=== PATIENT | male | born 1960 | race Caucasian/White ===

== ENCOUNTER 2019-02-26 18:06 | Emergency (ER) | payer MEDICARE, OTHER ==
[~2019-02-26] VITALS: Ht 180.3 cm; Wt 79.4 kg
[~2019-02-26 18:06] MED LIST: BUPR75 PO; BUTASPCAFT PO; FINA5 PO; FLUO20 PO; FOLI1 PO; LISI20 PO; MULVITA PO; PRAZ2 PO; QUET25 PO; TAMS.4ER PO
[2019-02-26 18:57] LABS: BASOPHILS PERCENT AUTO 1 % (0-2); EOSINOPHILS ABSOLUTE AUTO 0.54 K/mm3 (0.00-0.68); EOSINOPHILS PERCENT AUTO 8 % (0-6); Hematocrit 40.4 % (37.0-53.0); Hemoglobin 13.9 g/dL (13.5-17.5); IMMATURE GRAN ABSOLUTE AUTO 0.01 K/mm3 (0.00-0.10); IMMATURE GRAN PERCENT AUTO 0 % (0-1); LYMPHOCYTES PERCENT AUTO 40 % (21-46); MONOCYTES ABSOLUTE AUTO 0.44 K/mm3 (0.16-1.47); MONOCYTES PERCENT AUTO 6 % (4-13); Mean Corpuscular HGB 30.8 pg (26.0-34.0); Mean Corpuscular HGB Conc 34.4 g/dL (31.5-36.5); Mean Corpuscular Volume 89 fL (80-100); NEUTROPHILS ABSOLUTE AUTO 3.21 K/mm3 (1.96-9.15); NEUTROPHILS PERCENT AUTO 45 % (41-73); Platelet Count 331 K/mm3 (150-400); RDW Coefficient Variation 14.6 % (11.7-14.2); RDW Standard Deviation 48.4 fL (35.1-46.3); Red Blood Cell Count 4.52 M/mm3 (4.30-5.90)
[2019-02-26] MEDS ORDERED: HYDROXYZINE (19:22)
[2019-02-26 19:43] LABS: Alanine Aminotransfer (ALT/SGP 24 U/L (12-78); Albumin, Blood 3.5 g/dL (3.4-5.0); Albumin/Globulin Ratio 0.9 (0.8-1.8); Alk Phos 67 U/L (50-136); Anion Gap 12 mmol/L (6-16); Aspartate Aminotrans (AST/SGOT 27 U/L (12-37); Bilirubin, Total 0.3 mg/dL (0.1-1.0); Blood Urea Nitrogen 13 mg/dL (8-24); Bun/Creatinine Ratio 21.3 (12.0-20.0); CO2, Blood 21 mmol/L (21-32); Calcium, Blood 8.2 mg/dL (8.5-10.1); Chloride, Blood 105 mmol/L (98-108); Creatinine, Blood 0.61 mg/dL (0.60-1.20); Globulin, Blood 3.7 g/dL (2.2-4.0); Glomerular Filtration Rate >60 (60-); Glucose, Blood 100 mg/dL (70-99); Potassium, Blood 3.3 mmol/L (3.5-5.5); Sodium, Blood 138 mmol/L (136-145); Total Protein, Blood 7.2 g/dL (6.4-8.2); Troponin I <0.015 ng/mL (0.000-0.040)
== END 2019-02-26 20:52 | disposition home or self-care (01) ==
LOC: ER 18:06
PROVIDERS: Physician Assistant
DX: R07.9 Chest pain, unspecified (principal); R51 Headache; F32.9 Major depressive disorder, single episode, unspecified; Z88.5 Allergy status to narcotic agent; Z79.899 Other long term (current) drug therapy; J44.9 Chronic obstructive pulmonary disease, unspecified; Z79.82 Long term (current) use of aspirin; I10 Essential (primary) hypertension; F17.210 Nicotine dependence, cigarettes, uncomplicated
CPT/HCPCS: 36415; 71046; 80053; 83690; 84484; 85025; 99285-25

== ENCOUNTER 2019-02-27 21:01 | Emergency (ER) | payer MEDICARE, OTHER ==
[~2019-02-27] VITALS: Ht 182.9 cm; Wt 78.9 kg
[~2019-02-27 21:01] MED LIST changes: +HYDROXYZINE
[2019-02-27 21:54] LABS: BASOPHILS ABSOLUTE AUTO 0.08 K/mm3 (0.00-0.23); BASOPHILS PERCENT AUTO 2 % (0-2); EOSINOPHILS ABSOLUTE AUTO 0.38 K/mm3 (0.00-0.68); EOSINOPHILS PERCENT AUTO 8 % (0-6); Hematocrit 37.3 % (37.0-53.0); IMMATURE GRAN ABSOLUTE AUTO 0.01 K/mm3 (0.00-0.10); IMMATURE GRAN PERCENT AUTO 0 % (0-1); LYMPHOCYTES ABSOLUTE AUTO 2.34 K/mm3 (0.84-5.20); LYMPHOCYTES PERCENT AUTO 49 % (21-46); MONOCYTES ABSOLUTE AUTO 0.59 K/mm3 (0.16-1.47); MONOCYTES PERCENT AUTO 12 % (4-13); Mean Corpuscular HGB 30.9 pg (26.0-34.0); Mean Corpuscular HGB Conc 34.9 g/dL (31.5-36.5); Mean Corpuscular Volume 89 fL (80-100); Mean Platelet Volume 8.8 fL (9.1-12.4); NEUTROPHILS ABSOLUTE AUTO 1.35 K/mm3 (1.96-9.15); NEUTROPHILS PERCENT AUTO 28 % (41-73); Platelet Count 293 K/mm3 (150-400); RDW Coefficient Variation 14.4 % (11.7-14.2); RDW Standard Deviation 46.8 fL (35.1-46.3); Red Blood Cell Count 4.21 M/mm3 (4.30-5.90); White Blood Cell Count 4.75 K/mm3 (4.00-11.30)
[2019-02-27 22:16] LABS: Alanine Aminotransfer (ALT/SGP 22 U/L (12-78); Albumin, Blood 3.6 g/dL (3.4-5.0); Albumin/Globulin Ratio 1.1 (0.8-1.8); Alk Phos 62 U/L (50-136); Anion Gap 7 mmol/L (6-16); Aspartate Aminotrans (AST/SGOT 29 U/L (12-37); Bilirubin, Total 0.3 mg/dL (0.1-1.0); Blood Urea Nitrogen 7 mg/dL (8-24); CO2, Blood 25 mmol/L (21-32); Calcium, Blood 7.9 mg/dL (8.5-10.1); Chloride, Blood 105 mmol/L (98-108); Globulin, Blood 3.3 g/dL (2.2-4.0); Glomerular Filtration Rate >60 (60-); Glucose, Blood 106 mg/dL (70-99); Potassium, Blood 3.6 mmol/L (3.5-5.5); Sodium, Blood 137 mmol/L (136-145); Total Protein, Blood 6.9 g/dL (6.4-8.2)
[2019-02-27 22:18] LABS: Ethanol (Alcohol), Blood, Med 355 mg/dL
[2019-02-28] MEDS ORDERED: CEPH500 PO (01:40)
== END 2019-02-28 02:17 | disposition home or self-care (01) ==
LOC: ER 21:01
PROVIDERS: Emergency Medicine
DX: S56.422A Laceration of extensor muscle, fascia and tendon of left index finger at forearm level, initial encounter (principal); S00.31XA Abrasion of nose, initial encounter; J43.9 Emphysema, unspecified; F17.210 Nicotine dependence, cigarettes, uncomplicated; Z86.73 Personal history of transient ischemic attack (TIA), and cerebral infarction without residual deficits; Z88.8 Allergy status to other drugs, medicaments and biological substances; Z79.82 Long term (current) use of aspirin; Z79.899 Other long term (current) drug therapy
CPT/HCPCS: 12001; 36415; 70450; 71046; 72125; 73120; 80053; 82947; 85025; 86850; 86900; 86901; 90471; 90714; 99284-25; G0480

== ENCOUNTER 2019-04-19 22:42 | Observation (INO) | payer MEDICARE, OTHER ==
[~2019-04-19] VITALS: Ht 190.5 cm; Wt 90.7 kg
[~2019-04-19 22:42] MED LIST changes: +CEPH500 PO; +FLUO10 PO; -FLUO20 PO
== END 2019-04-20 06:53 | disposition home or self-care (01) ==
LOC: ER 22:42 → EOR 22:43
PROVIDERS: ADMIT Emergency Medicine
DX: F10.129 Alcohol abuse with intoxication, unspecified (principal); J44.9 Chronic obstructive pulmonary disease, unspecified; F17.210 Nicotine dependence, cigarettes, uncomplicated; Z86.73 Personal history of transient ischemic attack (TIA), and cerebral infarction without residual deficits; Z88.5 Allergy status to narcotic agent
CPT/HCPCS: 70450; 99285-25; G0378

== ENCOUNTER 2019-04-20 18:31 | Observation (INO) | payer MEDICARE, OTHER ==
[~2019-04-20] VITALS: Ht 182.9 cm; Wt 82.5 kg
[2019-04-20 19:28] LABS: BASOPHILS ABSOLUTE AUTO 0.11 K/mm3 (0.00-0.23); BASOPHILS PERCENT AUTO 1 % (0-2); EOSINOPHILS ABSOLUTE AUTO 0.62 K/mm3 (0.00-0.68); EOSINOPHILS PERCENT AUTO 7 % (0-6); Hematocrit 43.3 % (37.0-53.0); Hemoglobin 14.4 g/dL (13.5-17.5); IMMATURE GRAN ABSOLUTE AUTO 0.01 K/mm3 (0.00-0.10); IMMATURE GRAN PERCENT AUTO 0 % (0-1); LYMPHOCYTES PERCENT AUTO 32 % (21-46); MONOCYTES ABSOLUTE AUTO 0.67 K/mm3 (0.16-1.47); MONOCYTES PERCENT AUTO 8 % (4-13); Mean Corpuscular HGB 30.4 pg (26.0-34.0); Mean Corpuscular HGB Conc 33.3 g/dL (31.5-36.5); Mean Corpuscular Volume 92 fL (80-100); Mean Platelet Volume 9.1 fL (9.1-12.4); NEUTROPHILS PERCENT AUTO 52 % (41-73); Platelet Count 288 K/mm3 (150-400); RDW Coefficient Variation 14.6 % (11.7-14.2); RDW Standard Deviation 49.4 fL (35.1-46.3); Red Blood Cell Count 4.73 M/mm3 (4.30-5.90); White Blood Cell Count 8.71 K/mm3 (4.00-11.30)
[2019-04-20 19:50] LABS: Troponin I <0.015 ng/mL (0.000-0.040)
[2019-04-20 20:33] LABS: Alanine Aminotransfer (ALT/SGP 17 U/L (12-78); Albumin, Blood 3.6 g/dL (3.4-5.0); Alk Phos 76 U/L (50-136); Anion Gap 8 mmol/L (6-16); Aspartate Aminotrans (AST/SGOT 16 U/L (12-37); Bilirubin, Total 0.2 mg/dL (0.1-1.0); Blood Urea Nitrogen 7 mg/dL (8-24); Bun/Creatinine Ratio 13.9 (12.0-20.0); CO2, Blood 24 mmol/L (21-32); Chloride, Blood 111 mmol/L (98-108); Ethanol (Alcohol), Blood, Med 377 mg/dL; Globulin, Blood 3.7 g/dL (2.2-4.0); Glomerular Filtration Rate >60 (60-); Glucose, Blood 96 mg/dL (70-99); Potassium, Blood 3.5 mmol/L (3.5-5.5); Sodium, Blood 143 mmol/L (136-145); Total Protein, Blood 7.3 g/dL (6.4-8.2)
== END 2019-04-21 06:52 | disposition home or self-care (01) ==
LOC: ER 18:31 → EOR 18:32
PROVIDERS: ADMIT Emergency Medicine
DX: F10.129 Alcohol abuse with intoxication, unspecified (principal); F17.210 Nicotine dependence, cigarettes, uncomplicated; Z88.5 Allergy status to narcotic agent; Z79.899 Other long term (current) drug therapy; Y90.8 Blood alcohol level of 240 mg/100 ml or more
CPT/HCPCS: 36415; 71046; 80053; 83880; 84484; 85025; 93005; 93010; 99285-25; G0378; G0480

== ENCOUNTER 2020-12-12 14:38 | Emergency (ER) | payer MEDICARE, OTHER ==
[~2020-12-12] VITALS: Ht 182.9 cm; Wt 86.2 kg
[2020-12-12 15:28] LABS: BASOPHILS PERCENT AUTO 1 % (0-2); EOSINOPHILS ABSOLUTE AUTO 0.05 K/mm3 (0.00-0.68); EOSINOPHILS PERCENT AUTO 1 % (0-6); Hemoglobin 15.3 g/dL (13.5-17.5); IMMATURE GRAN ABSOLUTE AUTO 0.01 K/mm3 (0.00-0.10); IMMATURE GRAN PERCENT AUTO 0 % (0-1); LYMPHOCYTES ABSOLUTE AUTO 1.75 K/mm3 (0.84-5.20); LYMPHOCYTES PERCENT AUTO 21 % (21-46); MONOCYTES ABSOLUTE AUTO 0.68 K/mm3 (0.16-1.47); MONOCYTES PERCENT AUTO 8 % (4-13); Mean Corpuscular HGB Conc 34.8 g/dL (31.5-36.5); Mean Corpuscular Volume 89 fL (80-100); Mean Platelet Volume 8.3 fL (9.1-12.4); NEUTROPHILS ABSOLUTE AUTO 5.85 K/mm3 (1.96-9.15); NEUTROPHILS PERCENT AUTO 69 % (41-73); Platelet Count 251 K/mm3 (150-400); RDW Coefficient Variation 13.8 % (11.7-14.2); RDW Standard Deviation 44.6 fL (35.1-46.3); Red Blood Cell Count 4.94 M/mm3 (4.30-5.90); White Blood Cell Count 8.44 K/mm3 (4.00-11.30)
[2020-12-12 15:56] LABS: Alanine Aminotransfer (ALT/SGP 58 U/L (12-78); Albumin, Blood 4.5 g/dL (3.4-5.0); Albumin/Globulin Ratio 1.2 (0.8-1.8); Alk Phos 74 U/L (50-136); Anion Gap 10 mmol/L (6-16); Aspartate Aminotrans (AST/SGOT 62 U/L (12-37); Bilirubin, Total 0.4 mg/dL (0.1-1.0); Blood Urea Nitrogen 5 mg/dL (8-24); Bun/Creatinine Ratio 9.5 (12.0-20.0); CO2, Blood 21 mmol/L (21-32); Chloride, Blood 100 mmol/L (98-108); Creatinine, Blood 0.52 mg/dL (0.60-1.20); Ethanol (Alcohol), Blood, Med 286 mg/dL; Globulin, Blood 3.6 g/dL (2.2-4.0); Glomerular Filtration Rate >60 (60-); Glucose, Blood 100 mg/dL (70-99); Potassium, Blood 3.9 mmol/L (3.5-5.5); Salicylate 5.3 mg/dL (2.8-20.0); Sodium, Blood 131 mmol/L (136-145); Total Protein, Blood 8.1 g/dL (6.4-8.2)
[2020-12-12 15:59] LABS: Acetaminophen, Random <2.0 ug/mL (10.0-30.0)
[2020-12-12 16:25] LABS: Source, Urine Clean Catch
[2020-12-12 16:29] LABS: Appearance, Urine Clear (Clear); Bilirubin, Urine Neg (Neg); Blood, Urine 2+ (Neg); Color, Urine Yellow (P-Yellow); Glucose Qualitative, Urine Neg (Neg); Ketones, Urine 1+ (Neg); Leukocyte Esterase, Urine Neg (Neg); Nitrite, Urine Neg (Neg); Protein, Urine 3+ (Neg); Urobilinogen, Urine NORM (Normal); pH, Urine 6.5 (5.0-8.0)
[2020-12-12 16:37] LABS: Amorphous Light (0-Heavy); Bacteria Not Seen /hpf; Red Blood Cells, Urine Not Seen /hpf (0-2); Squamous Epithelial Cells Not Seen /hpf (Few); White Blood Cells, Urine Not Seen /hpf (0-5)
[2020-12-12 16:40] LABS: U Amphetamine Screen Not Detected; U Barbituate Screen Not Detected; U Benzodiazapine Screen Not Detected; U Buprenorphine Screen Not Detected; U Cannabinoids Screen Not Detected; U Cocaine Screen Not Detected; U Methadone Screen Not Detected; U Methamphetamine Screen Not Detected; U Opiates Screen Not Detected; U Oxycodone Screen Not Detected; U Phencyclidine Screen Not Detected; U Propoxyphene Screen Not Detected
[2020-12-12 20:06] LABS: Influenza A, PCR Negative (NEGATIVE); Influenza B, PCR Negative (NEGATIVE); Resp Syncytial Virus, PCR Negative (NEGATIVE); SARS-Cov-2 (COVID-19) PCR, MMC Negative (NEGATIVE)
[2021-06-15] MEDS ORDERED: PEPCID40 MG PO (14:41)
== END 2020-12-12 20:38 ==
LOC: ER 14:38
PROVIDERS: Emergency Medicine; Physician Assistant
DX: R45.851 Suicidal ideations (principal); J43.9 Emphysema, unspecified; F17.210 Nicotine dependence, cigarettes, uncomplicated; Z88.5 Allergy status to narcotic agent; Z86.73 Personal history of transient ischemic attack (TIA), and cerebral infarction without residual deficits; Z79.899 Other long term (current) drug therapy; Z79.82 Long term (current) use of aspirin; Z20.822 Contact with and (suspected) exposure to COVID-19
CPT/HCPCS: 0241U; 36415; 80053; 81001; 85025; 99285; G0480; J7030

== ENCOUNTER 2020-12-28 18:43 | Emergency (ER) | payer MEDICARE, OTHER ==
[~2020-12-28] VITALS: Ht 180.3 cm; Wt 83.9 kg
[2020-12-28 19:58] LABS: U Amphetamine Screen Not Detected; U Barbituate Screen Not Detected; U Benzodiazapine Screen Not Detected; U Buprenorphine Screen Not Detected; U Cannabinoids Screen Not Detected; U Cocaine Screen Not Detected; U Methadone Screen Not Detected; U Methamphetamine Screen Not Detected; U Opiates Screen Not Detected; U Oxycodone Screen Not Detected; U Phencyclidine Screen Not Detected; U Propoxyphene Screen Not Detected
[2020-12-28 20:08] LABS: BASOPHILS ABSOLUTE AUTO 0.13 K/mm3 (0.00-0.23); BASOPHILS PERCENT AUTO 2 % (0-2); EOSINOPHILS ABSOLUTE AUTO 0.21 K/mm3 (0.00-0.68); EOSINOPHILS PERCENT AUTO 4 % (0-6); Hematocrit 41.2 % (37.0-53.0); Hemoglobin 13.8 g/dL (13.5-17.5); IMMATURE GRAN ABSOLUTE AUTO 0.01 K/mm3 (0.00-0.10); IMMATURE GRAN PERCENT AUTO 0 % (0-1); LYMPHOCYTES ABSOLUTE AUTO 1.95 K/mm3 (0.84-5.20); LYMPHOCYTES PERCENT AUTO 35 % (21-46); MONOCYTES ABSOLUTE AUTO 0.61 K/mm3 (0.16-1.47); MONOCYTES PERCENT AUTO 11 % (4-13); Mean Corpuscular HGB 30.7 pg (26.0-34.0); Mean Corpuscular HGB Conc 33.5 g/dL (31.5-36.5); Mean Corpuscular Volume 92 fL (80-100); Mean Platelet Volume 8.6 fL (9.1-12.4); NEUTROPHILS ABSOLUTE AUTO 2.64 K/mm3 (1.96-9.15); NEUTROPHILS PERCENT AUTO 48 % (41-73); Platelet Count 368 K/mm3 (150-400); RDW Coefficient Variation 14.3 % (11.7-14.2); RDW Standard Deviation 48.9 fL (35.1-46.3); White Blood Cell Count 5.55 K/mm3 (4.00-11.30)
[2020-12-28 20:38] LABS: Alanine Aminotransfer (ALT/SGP 33 U/L (12-78); Albumin, Blood 3.9 g/dL (3.4-5.0); Albumin/Globulin Ratio 1.1 (0.8-1.8); Alk Phos 73 U/L (50-136); Anion Gap 6 mmol/L (6-16); Aspartate Aminotrans (AST/SGOT 22 U/L (12-37); Bilirubin, Total 0.2 mg/dL (0.1-1.0); Blood Urea Nitrogen 8 mg/dL (8-24); Bun/Creatinine Ratio 14.4 (12.0-20.0); CO2, Blood 23 mmol/L (21-32); Calcium, Blood 8.5 mg/dL (8.5-10.1); Chloride, Blood 105 mmol/L (98-108); Creatinine, Blood 0.56 mg/dL (0.60-1.20); Ethanol (Alcohol), Blood, Med 226 mg/dL; Globulin, Blood 3.7 g/dL (2.2-4.0); Glomerular Filtration Rate >60 (60-); Glucose, Blood 90 mg/dL (70-99); Sodium, Blood 134 mmol/L (136-145); Thyroxine (T4) 7.8 ug/dL (4.5-12.1); Total Protein, Blood 7.6 g/dL (6.4-8.2)
[2020-12-28 20:54] LABS: Acetaminophen, Random <2.0 ug/mL (10.0-30.0)
[2021-06-15] MEDS ORDERED: PEPCID40 MG PO (14:41)
== END 2020-12-28 20:54 | disposition home or self-care (01) ==
LOC: ER 18:43
PROVIDERS: Emergency Medicine
DX: F10.129 Alcohol abuse with intoxication, unspecified (principal); J43.9 Emphysema, unspecified; Z88.5 Allergy status to narcotic agent; Z88.8 Allergy status to other drugs, medicaments and biological substances; Z79.82 Long term (current) use of aspirin; Z79.899 Other long term (current) drug therapy; Y90.7 Blood alcohol level of 200-239 mg/100 ml
CPT/HCPCS: 80053; 84436; 84443; 85025; 99284; A9270; G0480

== ENCOUNTER 2021-01-04 06:18 | Emergency (ER) | payer MEDICARE, OTHER ==
[~2021-01-04] VITALS: Ht 182.9 cm; Wt 83.9 kg
[2021-01-04 07:19] LABS: BASOPHILS ABSOLUTE AUTO 0.07 K/mm3 (0.00-0.23); BASOPHILS PERCENT AUTO 1 % (0-2); EOSINOPHILS ABSOLUTE AUTO 0.29 K/mm3 (0.00-0.68); EOSINOPHILS PERCENT AUTO 5 % (0-6); Hemoglobin 13.9 g/dL (13.5-17.5); IMMATURE GRAN ABSOLUTE AUTO 0.01 K/mm3 (0.00-0.10); IMMATURE GRAN PERCENT AUTO 0 % (0-1); LYMPHOCYTES ABSOLUTE AUTO 1.76 K/mm3 (0.84-5.20); LYMPHOCYTES PERCENT AUTO 29 % (21-46); MONOCYTES ABSOLUTE AUTO 0.74 K/mm3 (0.16-1.47); MONOCYTES PERCENT AUTO 12 % (4-13); Mean Corpuscular HGB 31.2 pg (26.0-34.0); Mean Corpuscular HGB Conc 34.8 g/dL (31.5-36.5); Mean Corpuscular Volume 90 fL (80-100); Mean Platelet Volume 8.8 fL (9.1-12.4); NEUTROPHILS ABSOLUTE AUTO 3.26 K/mm3 (1.96-9.15); NEUTROPHILS PERCENT AUTO 53 % (41-73); Platelet Count 307 K/mm3 (150-400); RDW Coefficient Variation 14.6 % (11.7-14.2); RDW Standard Deviation 48.5 fL (35.1-46.3); Red Blood Cell Count 4.45 M/mm3 (4.30-5.90); White Blood Cell Count 6.13 K/mm3 (4.00-11.30)
[2021-01-04 07:40] LABS: Alanine Aminotransfer (ALT/SGP 27 U/L (12-78); Albumin, Blood 3.6 g/dL (3.4-5.0); Albumin/Globulin Ratio 0.9 (0.8-1.8); Alk Phos 64 U/L (50-136); Anion Gap 9 mmol/L (6-16); Aspartate Aminotrans (AST/SGOT 26 U/L (12-37); Bilirubin, Total 0.2 mg/dL (0.1-1.0); Blood Urea Nitrogen 9 mg/dL (8-24); Bun/Creatinine Ratio 15.4 (12.0-20.0); CO2, Blood 23 mmol/L (21-32); Calcium, Blood 8.6 mg/dL (8.5-10.1); Chloride, Blood 104 mmol/L (98-108); Creatinine, Blood 0.58 mg/dL (0.60-1.20); Ethanol (Alcohol), Blood, Med 71 mg/dL; Globulin, Blood 3.8 g/dL (2.2-4.0); Glomerular Filtration Rate >60 (60-); Glucose, Blood 101 mg/dL (70-99); Magnesium, Blood 2.2 mg/dL (1.6-2.4); Potassium, Blood 3.9 mmol/L (3.5-5.5); Sodium, Blood 136 mmol/L (136-145); Total Protein, Blood 7.4 g/dL (6.4-8.2)
[2021-01-04 08:47] LABS: Source, Urine Voided
[2021-01-04 08:55] LABS: Bilirubin, Urine Neg (Neg); Blood, Urine 1+ (Neg); Glucose Qualitative, Urine Neg (Neg); Ketones, Urine Neg (Neg); Leukocyte Esterase, Urine Neg (Neg); Nitrite, Urine Neg (Neg); Protein, Urine 1+ (Neg); Specific Gravity, Urine 1.025 (1.003-1.022); Urobilinogen, Urine NORM (Normal)
[2021-01-04 09:06] LABS: Appearance, Urine Clear (Clear); Color, Urine Yellow (P-Yellow)
[2021-01-04 09:07] LABS: Red Blood Cells, Urine 0-2 /hpf (0-2); White Blood Cells, Urine 0-2 /hpf (0-5)
[2021-01-04 09:09] LABS: Bacteria Rare /hpf; Hyaline Casts 0-2 /lpf (0-2); Mucus Light (0-Heavy); Squamous Epithelial Cells Rare /hpf (Few)
[2021-06-15] MEDS ORDERED: PEPCID40 MG PO (14:41)
== END 2021-01-04 10:09 | disposition home or self-care (01) ==
LOC: ER 06:18
PROVIDERS: Emergency Medicine
DX: F10.139 Alcohol abuse with withdrawal, unspecified (principal); Z79.899 Other long term (current) drug therapy; Y90.3 Blood alcohol level of 60-79 mg/100 ml
CPT/HCPCS: 36415; 71046; 80053; 81001; 83735; 85025; 93005; 93010; 96361; 96374; 96375; 99284-25; G0480; J2060; J2405; J3411; J3475; J7042

== ENCOUNTER 2021-05-16 04:02 | Emergency (ER) | payer MEDICARE, OTHER ==
[~2021-05-16] VITALS: Ht 182.9 cm; Wt 86.2 kg
[2021-05-16 05:42] LABS: BASOPHILS ABSOLUTE AUTO 0.07 K/mm3 (0.00-0.23); BASOPHILS PERCENT AUTO 1 % (0-2); EOSINOPHILS ABSOLUTE AUTO 0.09 K/mm3 (0.00-0.68); EOSINOPHILS PERCENT AUTO 1 % (0-6); Hematocrit 37.7 % (37.0-53.0); Hemoglobin 13.6 g/dL (13.5-17.5); IMMATURE GRAN ABSOLUTE AUTO 0.01 K/mm3 (0.00-0.10); IMMATURE GRAN PERCENT AUTO 0 % (0-1); LYMPHOCYTES ABSOLUTE AUTO 1.87 K/mm3 (0.84-5.20); LYMPHOCYTES PERCENT AUTO 26 % (21-46); MONOCYTES ABSOLUTE AUTO 0.81 K/mm3 (0.16-1.47); MONOCYTES PERCENT AUTO 11 % (4-13); Mean Corpuscular HGB 30.5 pg (26.0-34.0); Mean Corpuscular HGB Conc 36.1 g/dL (31.5-36.5); Mean Corpuscular Volume 85 fL (80-100); Mean Platelet Volume 8.8 fL (9.1-12.4); NEUTROPHILS PERCENT AUTO 60 % (41-73); Platelet Count 287 K/mm3 (150-400); RDW Standard Deviation 43.4 fL (35.1-46.3); Red Blood Cell Count 4.46 M/mm3 (4.30-5.90); White Blood Cell Count 7.15 K/mm3 (4.00-11.30)
[2021-05-16 05:59] LABS: Alanine Aminotransfer (ALT/SGP 41 U/L (12-78); Albumin, Blood 3.5 g/dL (3.4-5.0); Albumin/Globulin Ratio 1.1 (0.8-1.8); Alk Phos 73 U/L (50-136); Anion Gap 9 mmol/L (6-16); Aspartate Aminotrans (AST/SGOT 53 U/L (12-37); Bilirubin, Total 0.4 mg/dL (0.1-1.0); Blood Urea Nitrogen 5 mg/dL (8-24); Bun/Creatinine Ratio 9.2 (12.0-20.0); CO2, Blood 25 mmol/L (21-32); Calcium, Blood 8.1 mg/dL (8.5-10.1); Chloride, Blood 102 mmol/L (98-108); Creatinine, Blood 0.54 mg/dL (0.60-1.20); Globulin, Blood 3.2 g/dL (2.2-4.0); Glomerular Filtration Rate >60 (60-); Glucose, Blood 95 mg/dL (70-99); Potassium, Blood 3.4 mmol/L (3.5-5.5); Salicylate 3.5 mg/dL (2.8-20.0); Sodium, Blood 136 mmol/L (136-145); Total Protein, Blood 6.7 g/dL (6.4-8.2); Troponin I <0.015 ng/mL (0.000-0.040)
[2021-05-16 06:06] LABS: Source, Urine Clean Catch
[2021-05-16 06:16] LABS: Acetaminophen, Random <2.0 ug/mL (10.0-30.0)
[2021-05-16 06:16] LABS: Appearance, Urine Clear (Clear); Bilirubin, Urine Neg (Neg); Blood, Urine 1+ (Neg); Color, Urine Yellow (P-Yellow); Glucose Qualitative, Urine 1+ (Neg); Ketones, Urine Neg (Neg); Leukocyte Esterase, Urine Neg (Neg); Nitrite, Urine Neg (Neg); Protein, Urine 2+ (Neg); Specific Gravity, Urine 1.015 (1.003-1.022); Urobilinogen, Urine NORM (Normal)
[2021-05-16 06:27] LABS: Bacteria Rare /hpf; Mucus Light (0-Heavy); Squamous Epithelial Cells Not Seen /hpf (Few)
[2021-05-16 12:26] LABS: SARS-Cov-2 (COVID-19) PCR, MMC NEGATIVE (NEGATIVE)
[2021-06-15] MEDS ORDERED: PEPCID40 MG PO (14:41)
== END 2021-05-16 19:20 ==
LOC: ER 04:02
PROVIDERS: Emergency Medicine
DX: R45.851 Suicidal ideations (principal); R10.13 Epigastric pain; R10.11 Right upper quadrant pain; Z79.899 Other long term (current) drug therapy; Z20.822 Contact with and (suspected) exposure to COVID-19
CPT/HCPCS: 71045; 76705; 80053; 81001; 83690; 83735; 84484; 85025; 93005; 93010; 96372; 99285-25; A9270; G0480; J0780; J2270; U0004

== ENCOUNTER 2021-05-31 18:53 | Observation (INO) | payer OTHER, MEDICARE ==
[~2021-05-31] VITALS: Ht 182.9 cm; Wt 86.2 kg
[2021-05-31 19:33] LABS: Source, Urine Voided
[2021-05-31 19:39] LABS: BASOPHILS ABSOLUTE AUTO 0.09 K/mm3 (0.00-0.23); BASOPHILS PERCENT AUTO 1 % (0-2); EOSINOPHILS ABSOLUTE AUTO 0.09 K/mm3 (0.00-0.68); EOSINOPHILS PERCENT AUTO 1 % (0-6); Hematocrit 41.3 % (37.0-53.0); Hemoglobin 14.4 g/dL (13.5-17.5); IMMATURE GRAN ABSOLUTE AUTO 0.03 K/mm3 (0.00-0.10); IMMATURE GRAN PERCENT AUTO 0 % (0-1); LYMPHOCYTES ABSOLUTE AUTO 2.03 K/mm3 (0.84-5.20); LYMPHOCYTES PERCENT AUTO 23 % (21-46); MONOCYTES ABSOLUTE AUTO 0.61 K/mm3 (0.16-1.47); MONOCYTES PERCENT AUTO 7 % (4-13); Mean Corpuscular HGB 30.3 pg (26.0-34.0); Mean Corpuscular HGB Conc 34.9 g/dL (31.5-36.5); Mean Corpuscular Volume 87 fL (80-100); NEUTROPHILS ABSOLUTE AUTO 5.82 K/mm3 (1.96-9.15); NEUTROPHILS PERCENT AUTO 67 % (41-73); Platelet Count 305 K/mm3 (150-400); RDW Coefficient Variation 15.1 % (11.7-14.2); RDW Standard Deviation 48.4 fL (35.1-46.3); Red Blood Cell Count 4.76 M/mm3 (4.30-5.90); White Blood Cell Count 8.67 K/mm3 (4.00-11.30)
[2021-05-31 19:39] LABS: Bilirubin, Urine Neg (Neg); Blood, Urine 2+ (Neg); Glucose Qualitative, Urine Neg (Neg); Ketones, Urine Neg (Neg); Leukocyte Esterase, Urine Neg (Neg); Nitrite, Urine Neg (Neg); Protein, Urine 2+ (Neg); Specific Gravity, Urine 1.015 (1.003-1.022); Urobilinogen, Urine NORM (Normal)
[2021-05-31 19:41] LABS: Appearance, Urine Clear (Clear); Color, Urine Yellow (P-Yellow)
[2021-05-31 19:51] LABS: Bacteria Few /hpf; Red Blood Cells, Urine 0-2 /hpf (0-2); Squamous Epithelial Cells Not Seen /hpf (Few); White Blood Cells, Urine 0-2 /hpf (0-5)
[2021-05-31 19:52] LABS: U Amphetamine Screen Not Detected; U Barbituate Screen Not Detected; U Benzodiazapine Screen Not Detected; U Buprenorphine Screen Not Detected; U Cannabinoids Screen Not Detected; U Cocaine Screen Not Detected; U Methadone Screen Not Detected; U Methamphetamine Screen Not Detected; U Opiates Screen Not Detected; U Oxycodone Screen Not Detected; U Phencyclidine Screen Not Detected; U Propoxyphene Screen Not Detected
[2021-05-31 20:06] LABS: Alanine Aminotransfer (ALT/SGP 53 U/L (12-78); Albumin, Blood 3.8 g/dL (3.4-5.0); Alk Phos 111 U/L (50-136); Anion Gap 10 mmol/L (6-16); Aspartate Aminotrans (AST/SGOT 57 U/L (12-37); Bilirubin, Total 0.4 mg/dL (0.1-1.0); Blood Urea Nitrogen 8 mg/dL (8-24); CO2, Blood 25 mmol/L (21-32); Calcium, Blood 8.3 mg/dL (8.5-10.1); Chloride, Blood 101 mmol/L (98-108); Glomerular Filtration Rate >60 (60-); Glucose, Blood 95 mg/dL (70-99); Potassium, Blood 3.8 mmol/L (3.5-5.5); Salicylate 3.2 mg/dL (2.8-20.0); Sodium, Blood 136 mmol/L (136-145); Total Protein, Blood 7.8 g/dL (6.4-8.2); Troponin I <0.015 ng/mL (0.000-0.040)
[2021-05-31 20:22] LABS: Acetaminophen, Random <2.0 ug/mL (10.0-30.0); Ethanol (Alcohol), Blood, Med 310 mg/dL
[2021-05-31 21:49] LABS: SARS-Cov-2 (COVID-19) PCR, MMC NEGATIVE (NEGATIVE)
[2021-06-01] MEDS ORDERED: Mupirocin22 GM TOP (17:32)
[2021-06-02] MEDS ORDERED: ASPI81CH PO (22:59)
[2021-06-02] MEDS ORDERED: THERA-D2000 UNIT PO (23:02)
[2021-06-02] MEDS ORDERED: HYDCHL25 PO (23:03)
[2021-06-02] MEDS ORDERED: HYDPAM50 PO (23:04)
[2021-06-02] MEDS ORDERED: OMEP20ER PO (23:07)
[2021-06-02] MEDS ORDERED: Naltrexone HCl50 MG PO (23:07)
[2021-06-02] MEDS ORDERED: SERT100 PO (23:16)
[2021-06-02] MEDS ORDERED: TOPI25 PO (23:18)
[2021-06-15] MEDS ORDERED: PEPCID40 MG PO (14:41)
== END 2021-06-01 17:50 | disposition home or self-care (01) ==
LOC: ER 18:53 → EOR 18:54
PROVIDERS: ADMIT Emergency Medicine
DX: F33.9 Major depressive disorder, recurrent, unspecified (principal); I10 Essential (primary) hypertension; J43.9 Emphysema, unspecified; F17.210 Nicotine dependence, cigarettes, uncomplicated; Z88.6 Allergy status to analgesic agent; Z88.8 Allergy status to other drugs, medicaments and biological substances; Z20.822 Contact with and (suspected) exposure to COVID-19
CPT/HCPCS: 36415; 71045; 80053; 81001; 84484; 85025; 93005; 93010; 96374; 99285-25; A9270; G0378; G0480; J2560; Q3014; U0004

== ENCOUNTER 2021-06-02 21:20 | Emergency (ER) | payer OTHER, MEDICARE ==
[~2021-06-02] VITALS: Ht 182.9 cm; Wt 83.9 kg
[~2021-06-02 21:20] MED LIST changes: +Mupirocin22 GM TOP
[2021-06-02] MEDS ORDERED: ASPI81CH PO (22:59)
[2021-06-02] MEDS ORDERED: THERA-D2000 UNIT PO (23:02)
[2021-06-02] MEDS ORDERED: HYDCHL25 PO (23:03)
[2021-06-02] MEDS ORDERED: HYDPAM50 PO (23:04)
[2021-06-02] MEDS ORDERED: Naltrexone HCl50 MG PO (23:07)
[2021-06-02] MEDS ORDERED: OMEP20ER PO (23:07)
[2021-06-02] MEDS ORDERED: SERT100 PO (23:16)
[2021-06-02] MEDS ORDERED: TOPI25 PO (23:18)
== END 2021-06-03 01:30 | disposition home or self-care (01) ==
LOC: ER 21:20
DX: R45.851 Suicidal ideations (principal); J43.9 Emphysema, unspecified; I10 Essential (primary) hypertension; F17.210 Nicotine dependence, cigarettes, uncomplicated; Z23 Encounter for immunization; Z79.82 Long term (current) use of aspirin; Z79.899 Other long term (current) drug therapy; Z88.5 Allergy status to narcotic agent; Z88.8 Allergy status to other drugs, medicaments and biological substances
CPT/HCPCS: 70450; 72125; 90471; 90714; 99284-25; A9270; Q3014

== ENCOUNTER 2021-06-03 16:01 | Emergency (ER) | payer OTHER, MEDICARE ==
[~2021-06-03] VITALS: Ht 180.3 cm; Wt 88.5 kg
[~2021-06-03 16:01] MED LIST changes: +ASPI81CH PO; +HYDCHL25 PO; +HYDPAM50 PO; +Naltrexone HCl50 MG PO; +OMEP20ER PO; +SERT100 PO; +THERA-D2000 UNIT PO; +TOPI25 PO
== END 2021-06-03 17:32 | disposition home or self-care (01) ==
LOC: ER 16:01
DX: R45.851 Suicidal ideations (principal); J43.9 Emphysema, unspecified; I10 Essential (primary) hypertension; F17.210 Nicotine dependence, cigarettes, uncomplicated; Z72.89 Other problems related to lifestyle; Z79.899 Other long term (current) drug therapy
CPT/HCPCS: 99284

== ENCOUNTER 2021-06-12 19:15 | Observation (INO) | payer OTHER, MEDICARE | END 2021-06-13 15:28 | disposition home or self-care (01) | LOC: ER 19:15 → EOR 19:16 | PROVIDERS: ADMIT Emergency Medicine | DX: F32.9 Major depressive disorder, single episode, unspecified (principal); J43.9 Emphysema, unspecified; F17.200 Nicotine dependence, unspecified, uncomplicated; F10.120 Alcohol abuse with intoxication, uncomplicated; Z20.822 Contact with and (suspected) exposure to COVID-19; Z86.73 Personal history of transient ischemic attack (TIA), and cerebral infarction without residual deficits; Z88.6 Allergy status to analgesic agent; Z88.8 Allergy status to other drugs, medicaments and biological substances ==

== ENCOUNTER 2021-06-14 18:08 | Emergency (ER) | payer OTHER, MEDICARE ==
[~2021-06-14] VITALS: Ht 190.5 cm; Wt 83.9 kg
[2021-06-14 18:41] LABS: Source, Urine Clean Catch
[2021-06-14 18:49] LABS: Appearance, Urine Clear (Clear); Bilirubin, Urine Neg (Neg); Blood, Urine 1+ (Neg); Color, Urine Yellow (P-Yellow); Glucose Qualitative, Urine Neg (Neg); Ketones, Urine Neg (Neg); Leukocyte Esterase, Urine Neg (Neg); Nitrite, Urine Neg (Neg); Protein, Urine 1+ (Neg); Urobilinogen, Urine NORM (Normal)
[2021-06-14 18:49] LABS: BASOPHILS ABSOLUTE AUTO 0.05 K/mm3 (0.00-0.23); BASOPHILS PERCENT AUTO 1 % (0-2); EOSINOPHILS ABSOLUTE AUTO 0.17 K/mm3 (0.00-0.68); EOSINOPHILS PERCENT AUTO 3 % (0-6); Hemoglobin 13.9 g/dL (13.5-17.5); IMMATURE GRAN ABSOLUTE AUTO 0.01 K/mm3 (0.00-0.10); IMMATURE GRAN PERCENT AUTO 0 % (0-1); LYMPHOCYTES ABSOLUTE AUTO 1.56 K/mm3 (0.84-5.20); LYMPHOCYTES PERCENT AUTO 29 % (21-46); MONOCYTES ABSOLUTE AUTO 0.72 K/mm3 (0.16-1.47); MONOCYTES PERCENT AUTO 14 % (4-13); Mean Corpuscular HGB 31.1 pg (26.0-34.0); Mean Corpuscular HGB Conc 33.9 g/dL (31.5-36.5); Mean Corpuscular Volume 92 fL (80-100); Mean Platelet Volume 10.2 fL (9.1-12.4); NEUTROPHILS PERCENT AUTO 53 % (41-73); Platelet Count 160 K/mm3 (150-400); RDW Coefficient Variation 17.6 % (11.7-14.2); RDW Standard Deviation 59.6 fL (35.1-46.3); Red Blood Cell Count 4.47 M/mm3 (4.30-5.90); White Blood Cell Count 5.31 K/mm3 (4.00-11.30)
[2021-06-14 18:59] LABS: Bacteria Not Seen /hpf; Red Blood Cells, Urine 0-2 /hpf (0-2); Squamous Epithelial Cells Not Seen /hpf (Few); White Blood Cells, Urine 0-2 /hpf (0-5)
[2021-06-14 19:10] LABS: Alanine Aminotransfer (ALT/SGP 78 U/L (12-78); Albumin, Blood 3.5 g/dL (3.4-5.0); Albumin/Globulin Ratio 0.9 (0.8-1.8); Alk Phos 90 U/L (50-136); Anion Gap 9 mmol/L (6-16); Aspartate Aminotrans (AST/SGOT 118 U/L (12-37); Bilirubin, Total 0.3 mg/dL (0.1-1.0); Blood Urea Nitrogen 12 mg/dL (8-24); Bun/Creatinine Ratio 14.3 (12.0-20.0); CO2, Blood 23 mmol/L (21-32); Calcium, Blood 8.4 mg/dL (8.5-10.1); Chloride, Blood 111 mmol/L (98-108); Creatinine, Blood 0.84 mg/dL (0.60-1.20); Globulin, Blood 4.1 g/dL (2.2-4.0); Glomerular Filtration Rate >60 (60-); Glucose, Blood 95 mg/dL (70-99); Potassium, Blood 4.1 mmol/L (3.5-5.5); Sodium, Blood 143 mmol/L (136-145); Total Protein, Blood 7.6 g/dL (6.4-8.2); Troponin I <0.015 ng/mL (0.000-0.040)
[2021-06-15] MEDS ORDERED: PEPCID40 MG PO (14:41)
== END 2021-06-14 20:35 | disposition left against medical advice (07) ==
LOC: ER 18:08
PROVIDERS: Physician Assistant
DX: R07.9 Chest pain, unspecified (principal); Z53.21 Procedure and treatment not carried out due to patient leaving prior to being seen by health care provider
CPT/HCPCS: 71045; 80053; 81001; 82947; 83690; 84484; 85025; 93005; 93010; 99285-25; G0480

== ENCOUNTER 2021-06-15 12:46 | Emergency (ER) | payer OTHER, MEDICARE | END 2021-06-15 14:51 | disposition home or self-care (01) | LOC: ER 12:46 | DX: R07.9 Chest pain, unspecified (principal); F10.10 Alcohol abuse, uncomplicated; I10 Essential (primary) hypertension; F17.200 Nicotine dependence, unspecified, uncomplicated; Z88.8 Allergy status to other drugs, medicaments and biological substances ==

== ENCOUNTER 2021-06-16 08:00 | Emergency (ER) | payer OTHER, MEDICARE ==
[~2021-06-16] VITALS: Ht 182.9 cm; Wt 83.0 kg
[~2021-06-16 08:00] MED LIST changes: +PEPCID40 MG PO
== END 2021-06-16 08:37 | disposition home or self-care (01) ==
LOC: ER 08:00
DX: F10.129 Alcohol abuse with intoxication, unspecified (principal); J44.9 Chronic obstructive pulmonary disease, unspecified; F17.210 Nicotine dependence, cigarettes, uncomplicated; Z79.899 Other long term (current) drug therapy; Z88.5 Allergy status to narcotic agent
CPT/HCPCS: 99285

== ENCOUNTER 2021-06-19 03:01 | Emergency (ER) | payer OTHER, MEDICARE ==
[~2021-06-19] VITALS: Ht 182.9 cm; Wt 83.9 kg
== END 2021-06-19 03:50 | disposition home or self-care (01) ==
LOC: ER 03:01
DX: S39.012A Strain of muscle, fascia and tendon of lower back, initial encounter (principal); J43.9 Emphysema, unspecified; I10 Essential (primary) hypertension; Z88.5 Allergy status to narcotic agent; Z88.8 Allergy status to other drugs, medicaments and biological substances; X58.XXXA Exposure to other specified factors, initial encounter
CPT/HCPCS: 99283; A9270

== ENCOUNTER 2021-06-24 17:55 | Emergency (ER) | payer OTHER, MEDICARE ==
[~2021-06-24] VITALS: Ht 182.9 cm; Wt 82.5 kg
[2021-06-24] MEDS ORDERED: VITAMIN D325 MC3 PO (18:06)
[2021-06-24] MEDS ORDERED: HYDPAM50 PO (18:07)
[2021-06-24] MEDS ORDERED: LISI20 PO (18:07)
[2021-06-24] MEDS ORDERED: Vitamin and Mi1 EACH PO (18:08)
[2021-06-24] MEDS ORDERED: QUET300 PO (18:08)
[2021-06-24 19:07] LABS: BASOPHILS ABSOLUTE AUTO 0.06 K/mm3 (0.00-0.23); BASOPHILS PERCENT AUTO 1 % (0-2); EOSINOPHILS ABSOLUTE AUTO 0.09 K/mm3 (0.00-0.68); EOSINOPHILS PERCENT AUTO 2 % (0-6); Hemoglobin 13.3 g/dL (13.5-17.5); IMMATURE GRAN ABSOLUTE AUTO 0.01 K/mm3 (0.00-0.10); IMMATURE GRAN PERCENT AUTO 0 % (0-1); LYMPHOCYTES ABSOLUTE AUTO 0.63 K/mm3 (0.84-5.20); LYMPHOCYTES PERCENT AUTO 11 % (21-46); MONOCYTES PERCENT AUTO 12 % (4-13); Mean Corpuscular HGB 31.2 pg (26.0-34.0); Mean Corpuscular HGB Conc 33.3 g/dL (31.5-36.5); Mean Corpuscular Volume 94 fL (80-100); Mean Platelet Volume 9.8 fL (9.1-12.4); NEUTROPHILS ABSOLUTE AUTO 4.23 K/mm3 (1.96-9.15); NEUTROPHILS PERCENT AUTO 74 % (41-73); Platelet Count 256 K/mm3 (150-400); RDW Coefficient Variation 18.3 % (11.7-14.2); RDW Standard Deviation 63.2 fL (35.1-46.3); Red Blood Cell Count 4.26 M/mm3 (4.30-5.90); White Blood Cell Count 5.72 K/mm3 (4.00-11.30)
[2021-06-24 19:18] LABS: Alanine Aminotransfer (ALT/SGP 65 U/L (12-78); Albumin, Blood 3.5 g/dL (3.4-5.0); Alk Phos 84 U/L (50-136); Anion Gap 6 mmol/L (6-16); Aspartate Aminotrans (AST/SGOT 74 U/L (12-37); Bilirubin, Total 0.7 mg/dL (0.1-1.0); Blood Urea Nitrogen 15 mg/dL (8-24); CO2, Blood 28 mmol/L (21-32); Calcium, Blood 9.2 mg/dL (8.5-10.1); Chloride, Blood 102 mmol/L (98-108); Creatinine, Blood 0.56 mg/dL (0.60-1.20); Globulin, Blood 3.5 g/dL (2.2-4.0); Glomerular Filtration Rate >60 (60-); Glucose, Blood 131 mg/dL (70-99); Potassium, Blood 3.9 mmol/L (3.5-5.5); Sodium, Blood 136 mmol/L (136-145)
[2021-06-24] MEDS ORDERED: LIBRAX CAPSULE1 EACH PO (19:29)
== END 2021-06-24 19:42 | disposition home or self-care (01) ==
LOC: ER 17:55
PROVIDERS: Emergency Medicine
DX: F10.239 Alcohol dependence with withdrawal, unspecified (principal); J43.9 Emphysema, unspecified; I10 Essential (primary) hypertension; Z88.8 Allergy status to other drugs, medicaments and biological substances; Z79.899 Other long term (current) drug therapy
CPT/HCPCS: 36415; 80053; 85025; 96374; 99285-25; A9270; J2060; J7030

== ENCOUNTER 2021-06-29 06:43 | Emergency (ER) | payer OTHER, MEDICARE ==
[~2021-06-29] VITALS: Ht 182.9 cm; Wt 82.5 kg
[~2021-06-29 06:43] MED LIST changes: +LIBRAX CAPSULE1 EACH PO; +QUET300 PO; +VITAMIN D325 MC3 PO; +Vitamin and Mi1 EACH PO
[2021-06-29 07:32] LABS: BASOPHILS ABSOLUTE AUTO 0.09 K/mm3 (0.00-0.23); BASOPHILS PERCENT AUTO 1 % (0-2); EOSINOPHILS ABSOLUTE AUTO 0.13 K/mm3 (0.00-0.68); EOSINOPHILS PERCENT AUTO 2 % (0-6); Hematocrit 42.9 % (37.0-53.0); Hemoglobin 14.3 g/dL (13.5-17.5); IMMATURE GRAN ABSOLUTE AUTO 0.02 K/mm3 (0.00-0.10); IMMATURE GRAN PERCENT AUTO 0 % (0-1); LYMPHOCYTES PERCENT AUTO 14 % (21-46); MONOCYTES ABSOLUTE AUTO 0.65 K/mm3 (0.16-1.47); MONOCYTES PERCENT AUTO 10 % (4-13); Mean Corpuscular HGB 31.5 pg (26.0-34.0); Mean Corpuscular HGB Conc 33.3 g/dL (31.5-36.5); Mean Corpuscular Volume 95 fL (80-100); Mean Platelet Volume 9.5 fL (9.1-12.4); NEUTROPHILS ABSOLUTE AUTO 4.73 K/mm3 (1.96-9.15); NEUTROPHILS PERCENT AUTO 73 % (41-73); Platelet Count 275 K/mm3 (150-400); RDW Coefficient Variation 17.2 % (11.7-14.2); RDW Standard Deviation 59.7 fL (35.1-46.3); Red Blood Cell Count 4.54 M/mm3 (4.30-5.90); White Blood Cell Count 6.52 K/mm3 (4.00-11.30)
[2021-06-29 07:51] LABS: Alanine Aminotransfer (ALT/SGP 103 U/L (12-78); Albumin, Blood 3.6 g/dL (3.4-5.0); Albumin/Globulin Ratio 0.9 (0.8-1.8); Alk Phos 99 U/L (50-136); Anion Gap 9 mmol/L (6-16); Aspartate Aminotrans (AST/SGOT 81 U/L (12-37); Bilirubin, Total 0.4 mg/dL (0.1-1.0); Blood Urea Nitrogen 7 mg/dL (8-24); Bun/Creatinine Ratio 13.3 (12.0-20.0); CO2, Blood 23 mmol/L (21-32); Calcium, Blood 8.3 mg/dL (8.5-10.1); Chloride, Blood 103 mmol/L (98-108); Creatinine, Blood 0.53 mg/dL (0.60-1.20); Globulin, Blood 4.1 g/dL (2.2-4.0); Glomerular Filtration Rate >60 (60-); Glucose, Blood 93 mg/dL (70-99); Potassium, Blood 3.8 mmol/L (3.5-5.5); Sodium, Blood 135 mmol/L (136-145); Total Protein, Blood 7.7 g/dL (6.4-8.2)
[2021-06-29 12:27] LABS: SARS-Cov-2 (COVID-19) PCR, MMC NEGATIVE (NEGATIVE)
== END 2021-06-29 14:14 | disposition short-term general hospital (02) ==
LOC: ER 06:43
PROVIDERS: Emergency Medicine
DX: F10.239 Alcohol dependence with withdrawal, unspecified (principal); G40.89 Other seizures; J43.9 Emphysema, unspecified; I10 Essential (primary) hypertension; F17.210 Nicotine dependence, cigarettes, uncomplicated; Z20.822 Contact with and (suspected) exposure to COVID-19; Z88.5 Allergy status to narcotic agent; Z88.8 Allergy status to other drugs, medicaments and biological substances; Z79.899 Other long term (current) drug therapy
CPT/HCPCS: 80053; 85025; 96361; 96374; 96376; 99285-25; A9270; J2060; J7030; U0004

== ENCOUNTER 2021-07-31 16:40 | Emergency (ER) | payer OTHER, MEDICARE ==
[~2021-07-31] VITALS: Ht 182.9 cm; Wt 82.5 kg
[2021-07-31 17:07] LABS: BASOPHILS ABSOLUTE AUTO 0.06 K/mm3 (0.00-0.23); BASOPHILS PERCENT AUTO 1 % (0-2); EOSINOPHILS ABSOLUTE AUTO 0.17 K/mm3 (0.00-0.68); EOSINOPHILS PERCENT AUTO 2 % (0-6); Hematocrit 38.8 % (37.0-53.0); Hemoglobin 13.6 g/dL (13.5-17.5); IMMATURE GRAN ABSOLUTE AUTO 0.01 K/mm3 (0.00-0.10); IMMATURE GRAN PERCENT AUTO 0 % (0-1); LYMPHOCYTES ABSOLUTE AUTO 2.16 K/mm3 (0.84-5.20); LYMPHOCYTES PERCENT AUTO 29 % (21-46); MONOCYTES PERCENT AUTO 10 % (4-13); Mean Corpuscular HGB 31.1 pg (26.0-34.0); Mean Corpuscular HGB Conc 35.1 g/dL (31.5-36.5); Mean Corpuscular Volume 89 fL (80-100); Mean Platelet Volume 8.8 fL (9.1-12.4); NEUTROPHILS ABSOLUTE AUTO 4.29 K/mm3 (1.96-9.15); NEUTROPHILS PERCENT AUTO 58 % (41-73); Platelet Count 281 K/mm3 (150-400); RDW Coefficient Variation 13.9 % (11.7-14.2); RDW Standard Deviation 45.4 fL (35.1-46.3); Red Blood Cell Count 4.38 M/mm3 (4.30-5.90); White Blood Cell Count 7.39 K/mm3 (4.00-11.30)
[2021-07-31 17:31] LABS: Alanine Aminotransfer (ALT/SGP 33 U/L (12-78); Albumin, Blood 3.6 g/dL (3.4-5.0); Albumin/Globulin Ratio 1.1 (0.8-1.8); Alk Phos 84 U/L (50-136); Anion Gap 13 mmol/L (6-16); Aspartate Aminotrans (AST/SGOT 31 U/L (12-37); Bilirubin, Total 0.3 mg/dL (0.1-1.0); Blood Urea Nitrogen 12 mg/dL (8-24); Bun/Creatinine Ratio 15.3 (12.0-20.0); CO2, Blood 21 mmol/L (21-32); Calcium, Blood 8.1 mg/dL (8.5-10.1); Chloride, Blood 96 mmol/L (98-108); Creatinine, Blood 0.78 mg/dL (0.60-1.20); Globulin, Blood 3.3 g/dL (2.2-4.0); Glomerular Filtration Rate >60 (60-); Glucose, Blood 96 mg/dL (70-99); Potassium, Blood 4.2 mmol/L (3.5-5.5); Sodium, Blood 130 mmol/L (136-145); Total Protein, Blood 6.9 g/dL (6.4-8.2)
[2021-07-31] MEDS ORDERED: Aspir 8181 MG PO (17:45)
== END 2021-07-31 21:00 | disposition home or self-care (01) ==
LOC: ER 16:40
PROVIDERS: Student in an Organized Health Care Education/Training Program
DX: S01.81XA Laceration without foreign body of other part of head, initial encounter (principal); S01.411A Laceration without foreign body of right cheek and temporomandibular area, initial encounter; R07.81 Pleurodynia; I10 Essential (primary) hypertension; J43.9 Emphysema, unspecified; F17.210 Nicotine dependence, cigarettes, uncomplicated; Z88.8 Allergy status to other drugs, medicaments and biological substances; Z88.5 Allergy status to narcotic agent; Z79.899 Other long term (current) drug therapy; Z86.73 Personal history of transient ischemic attack (TIA), and cerebral infarction without residual deficits; W01.0XXA Fall on same level from slipping, tripping and stumbling without subsequent striking against object, initial encounter
CPT/HCPCS: 12013; 36415; 70450; 71101; 72125; 80053; 85025; 90471; 90714; 93005; 93010; 96374-59; 96375-59; 99284-25; J1885; J2765

== ENCOUNTER 2021-08-05 19:11 | Emergency (ER) | payer OTHER ==
[~2021-08-05] VITALS: Ht 182.9 cm; Wt 82.5 kg
[~2021-08-05 19:11] MED LIST changes: +Aspir 8181 MG PO
[2021-08-05 19:36] LABS: BASOPHILS ABSOLUTE AUTO 0.08 K/mm3 (0.00-0.23); BASOPHILS PERCENT AUTO 1 % (0-2); EOSINOPHILS ABSOLUTE AUTO 0.13 K/mm3 (0.00-0.68); EOSINOPHILS PERCENT AUTO 2 % (0-6); Hematocrit 32.7 % (37.0-53.0); Hemoglobin 11.3 g/dL (13.5-17.5); IMMATURE GRAN ABSOLUTE AUTO 0.03 K/mm3 (0.00-0.10); IMMATURE GRAN PERCENT AUTO 0 % (0-1); LYMPHOCYTES ABSOLUTE AUTO 1.94 K/mm3 (0.84-5.20); LYMPHOCYTES PERCENT AUTO 22 % (21-46); MONOCYTES ABSOLUTE AUTO 0.77 K/mm3 (0.16-1.47); MONOCYTES PERCENT AUTO 9 % (4-13); Mean Corpuscular HGB Conc 34.6 g/dL (31.5-36.5); Mean Corpuscular Volume 90 fL (80-100); Mean Platelet Volume 8.8 fL (9.1-12.4); NEUTROPHILS ABSOLUTE AUTO 5.83 K/mm3 (1.96-9.15); NEUTROPHILS PERCENT AUTO 66 % (41-73); Platelet Count 235 K/mm3 (150-400); RDW Coefficient Variation 14.2 % (11.7-14.2); RDW Standard Deviation 46.7 fL (35.1-46.3); Red Blood Cell Count 3.65 M/mm3 (4.30-5.90); White Blood Cell Count 8.78 K/mm3 (4.00-11.30)
[2021-08-05 19:57] LABS: Alanine Aminotransfer (ALT/SGP 28 U/L (12-78); Albumin, Blood 3.4 g/dL (3.4-5.0); Alk Phos 87 U/L (50-136); Anion Gap 9 mmol/L (6-16); Aspartate Aminotrans (AST/SGOT 26 U/L (12-37); Bilirubin, Total 0.3 mg/dL (0.1-1.0); Blood Urea Nitrogen 9 mg/dL (8-24); Bun/Creatinine Ratio 14.2 (12.0-20.0); CO2, Blood 24 mmol/L (21-32); Calcium, Blood 7.9 mg/dL (8.5-10.1); Chloride, Blood 98 mmol/L (98-108); Creatinine, Blood 0.64 mg/dL (0.60-1.20); Globulin, Blood 3.4 g/dL (2.2-4.0); Glomerular Filtration Rate >60 (60-); Glucose, Blood 95 mg/dL (70-99); Potassium, Blood 4.4 mmol/L (3.5-5.5); Sodium, Blood 131 mmol/L (136-145); Total Protein, Blood 6.8 g/dL (6.4-8.2); Troponin I <0.015 ng/mL (0.000-0.040)
== END 2021-08-05 22:53 | disposition home or self-care (01) ==
LOC: ER 19:11
PROVIDERS: Emergency Medicine
DX: R07.89 Other chest pain (principal); I10 Essential (primary) hypertension; F17.210 Nicotine dependence, cigarettes, uncomplicated; Z88.8 Allergy status to other drugs, medicaments and biological substances; Z88.5 Allergy status to narcotic agent; Z79.899 Other long term (current) drug therapy; Z79.82 Long term (current) use of aspirin; Z86.73 Personal history of transient ischemic attack (TIA), and cerebral infarction without residual deficits
CPT/HCPCS: 36415; 71045; 80053; 84484; 85025; 93005; 93010; 96365; 96375; 99285-25; J1885; J2560

== ENCOUNTER 2021-08-30 19:43 | Inpatient (IN) | payer OTHER ==
[~2021-08-30] VITALS: Ht 182.9 cm; Wt 88.7 kg
[2021-08-30 20:29] LABS: BASOPHILS ABSOLUTE AUTO 0.05 K/mm3 (0.00-0.23); BASOPHILS PERCENT AUTO 0 % (0-2); EOSINOPHILS PERCENT AUTO 0 % (0-6); Hematocrit 25.2 % (37.0-53.0); Hemoglobin 8.9 g/dL (13.5-17.5); IMMATURE GRAN ABSOLUTE AUTO 0.06 K/mm3 (0.00-0.10); IMMATURE GRAN PERCENT AUTO 1 % (0-1); LYMPHOCYTES ABSOLUTE AUTO 1.74 K/mm3 (0.84-5.20); LYMPHOCYTES PERCENT AUTO 14 % (21-46); MONOCYTES ABSOLUTE AUTO 1.85 K/mm3 (0.16-1.47); MONOCYTES PERCENT AUTO 15 % (4-13); Mean Corpuscular HGB 31.2 pg (26.0-34.0); Mean Corpuscular HGB Conc 35.3 g/dL (31.5-36.5); Mean Corpuscular Volume 88 fL (80-100); Mean Platelet Volume 9.3 fL (9.1-12.4); NEUTROPHILS ABSOLUTE AUTO 8.94 K/mm3 (1.96-9.15); NEUTROPHILS PERCENT AUTO 71 % (41-73); Platelet Count 334 K/mm3 (150-400); RDW Coefficient Variation 14.2 % (11.7-14.2); RDW Standard Deviation 45.6 fL (35.1-46.3); Red Blood Cell Count 2.85 M/mm3 (4.30-5.90); White Blood Cell Count 12.64 K/mm3 (4.00-11.30)
[2021-08-30 20:57] LABS: Alanine Aminotransfer (ALT/SGP 36 U/L (12-78); Albumin, Blood 3.1 g/dL (3.4-5.0); Albumin/Globulin Ratio 0.9 (0.8-1.8); Alk Phos 70 U/L (50-136); Anion Gap 12 mmol/L (6-16); Aspartate Aminotrans (AST/SGOT 41 U/L (12-37); Bilirubin, Total 0.6 mg/dL (0.1-1.0); Blood Urea Nitrogen 25 mg/dL (8-24); Bun/Creatinine Ratio 41.5 (12.0-20.0); CO2, Blood 21 mmol/L (21-32); Calcium, Blood 8.3 mg/dL (8.5-10.1); Chloride, Blood 90 mmol/L (98-108); Ethanol (Alcohol), Blood, Med 173 mg/dL; Globulin, Blood 3.6 g/dL (2.2-4.0); Glomerular Filtration Rate >60 (60-); Glucose, Blood 93 mg/dL (70-99); Potassium, Blood 4.4 mmol/L (3.5-5.5); Sodium, Blood 123 mmol/L (136-145); Total Protein, Blood 6.7 g/dL (6.4-8.2); Troponin I 0.039 ng/mL (0.000-0.040)
[2021-08-30] MEDS ORDERED: LISI5 PO (21:23)
[2021-08-30] MEDS ORDERED: Hydroxyzine HCl50 MG PO (21:24)
[2021-08-30] MEDS ORDERED: Seroquel300 MG PO (21:24)
[2021-08-30] MEDS ORDERED: Hair, Skin & N1 EACH PO (21:25)
[2021-08-30] MEDS ORDERED: Viagra100 MG PO (21:25)
[2021-08-30 22:37] LABS: International Normalized Ratio 0.99; Prothrombin Time Results 10.4 Sec (9.7-11.5)
[2021-08-30 23:29] LABS: SARS-Cov-2 (COVID-19) PCR, MMC NEGATIVE (NEGATIVE)
--- NOTE | 2021-08-31 03:01 | NUR ---
update SPOKE TO DR. JETT ABOUT THE PT'S LACK OF IV ACCESS AND THE INCOMPATIBILITY OF HIS MEDICATIONS. THE PROVIDER SAID TO HOLD THE THIAMINE AT THIS TIME AND JUST RUN THE PROTONIX AND SANDOSTATIN.
[2021-08-31 04:17] LABS: BASOPHILS PERCENT AUTO 1 % (0-2); EOSINOPHILS ABSOLUTE AUTO 0.02 K/mm3 (0.00-0.68); EOSINOPHILS PERCENT AUTO 0 % (0-6); Hematocrit 27.2 % (37.0-53.0); Hemoglobin 9.3 g/dL (13.5-17.5); IMMATURE GRAN ABSOLUTE AUTO 0.03 K/mm3 (0.00-0.10); IMMATURE GRAN PERCENT AUTO 0 % (0-1); LYMPHOCYTES ABSOLUTE AUTO 1.35 K/mm3 (0.84-5.20); LYMPHOCYTES PERCENT AUTO 13 % (21-46); MONOCYTES PERCENT AUTO 16 % (4-13); Mean Corpuscular HGB 31.3 pg (26.0-34.0); Mean Corpuscular HGB Conc 34.2 g/dL (31.5-36.5); Mean Corpuscular Volume 92 fL (80-100); Mean Platelet Volume 9.4 fL (9.1-12.4); NEUTROPHILS ABSOLUTE AUTO 7.17 K/mm3 (1.96-9.15); NEUTROPHILS PERCENT AUTO 70 % (41-73); Platelet Count 301 K/mm3 (150-400); RDW Coefficient Variation 14.3 % (11.7-14.2); RDW Standard Deviation 47.7 fL (35.1-46.3); Red Blood Cell Count 2.97 M/mm3 (4.30-5.90); White Blood Cell Count 10.27 K/mm3 (4.00-11.30)
[2021-08-31 04:25] LABS: Alanine Aminotransfer (ALT/SGP 28 U/L (12-78); Albumin, Blood 2.5 g/dL (3.4-5.0); Albumin/Globulin Ratio 0.8 (0.8-1.8); Alk Phos 63 U/L (50-136); Anion Gap 8 mmol/L (6-16); Aspartate Aminotrans (AST/SGOT 35 U/L (12-37); Bilirubin, Total 0.5 mg/dL (0.1-1.0); Blood Urea Nitrogen 14 mg/dL (8-24); Bun/Creatinine Ratio 28.6 (12.0-20.0); CO2, Blood 21 mmol/L (21-32); CPK Creatine Kinase 657 U/L (39-308); Calcium, Blood 6.9 mg/dL (8.5-10.1); Chloride, Blood 100 mmol/L (98-108); Creatinine, Blood 0.49 mg/dL (0.60-1.20); Globulin, Blood 3.2 g/dL (2.2-4.0); Glomerular Filtration Rate >60 (60-); Glucose, Blood 128 mg/dL (70-99); Potassium, Blood 4.1 mmol/L (3.5-5.5); Sodium, Blood 129 mmol/L (136-145); Total Protein, Blood 5.7 g/dL (6.4-8.2); Troponin I 0.016 ng/mL (0.000-0.040)
[2021-08-31 04:40] LABS: Creatine Kinase MB 4.5 ng/mL (0.0-3.6); Creatine Kinase MB Index 0.7 (0.0-4.0)
--- NOTE | 2021-08-31 05:24 | NUR ---
Shift Summary Pt arrived from ED at 0030. Pt was A&O x2 on arrival. Pt was cooperative and answered all questions appropriately. Pt would have episodes of mild confusion that required redirection and reorientation multiple times. Multiple attempts to place an IV catheter were made by several nurses, none were successful. The provider was notified of this and gave orders to hold administering thimaine until a new IV could be established. Pt c/o chest pain that was unrelieved by treatment with nitroglycerin.
[2021-08-31 09:10] LABS: Hematocrit 24.5 % (37.0-53.0); Hemoglobin 8.4 g/dL (13.5-17.5)
[2021-08-31 12:16] LABS: Hematocrit 24.3 % (37.0-53.0); Hemoglobin 8.5 g/dL (13.5-17.5)
[2021-08-31 13:10] LABS: CPK Creatine Kinase 512 U/L (39-308); Troponin I <0.015 ng/mL (0.000-0.040)
[2021-08-31 13:25] LABS: Creatine Kinase MB 2.8 ng/mL (0.0-3.6); Creatine Kinase MB Index 0.5 (0.0-4.0)
--- NOTE | 2021-08-31 18:13 | NUR ---
SHIFT SUMMARY: PT CONTINUES LETHARGIC, AROUSES TO STAFF IN ROOM, WILL ANSWER QUESTIONS APPROPRIATELY BUT HAS BEEN ATTEMPTING TO EXIT BED T/OUT THE SHIFT. GIAN VEST AND VIDEO MONITORING CONTINUE IN PLACE. PT MAINTAINING O2 SATS >92% ON O2 VIA NC AT 2 L/MIN. SR ON MONITOR, NO C/O CHEST PAIN BUT PT DOES C/O L SIDE/RIB PAIN. PT MEDICATED PER EMAR FOR PAIN AND/OR CIWA PROTOCOL. DR REDD TO BEDSIDE, DECIDES TO POSTPONE EGD, CLEAR LIQUID DIET ORDERED, BEDSIDE SWALLOW EVAL COMPLETED AND PT ABLE TO PARTICIPATE W/NO PROBLEMS. ATTENS IN PLACE, ONE SMALL SMEAR OF BLACK STOOL NOTED UPON CHANGING. PT USUALLY ABLE TO VERBALIZE NEED TO USE URINAL. PROTONIX GTT, OCTREOTIDE GTT, AND THIAMINE GTT ALL INFUSING AT THIS TIME. WILL CONTINUE TO MONITOR AND TREAT ACCORDINGLY UNTIL CHANGE OF SHIFT.
[2021-08-31 21:10] LABS: Hematocrit 24.1 % (37.0-53.0); Hemoglobin 8.2 g/dL (13.5-17.5)
--- NOTE | 2021-08-31 21:23 | NUR ---
CALLED TRAMAINE WITH LAB RESULTS NO FURTHER ORDERS AT THIS TIME. PATIENT HAS HAD INCREASING CIWA SCORES THIS EVENING 1929 CIWA 15, 2029 CIWA 19 PATIENT THINKS HE IS IN [facility] IT IS AUGUST BUT YEAR IS 2008 AND 1989, HE ADMITS TO HAVING AUDITORY AND VISUAL HALLUCINATIONS AND IT IS FRIEGHTENING TO HIM, HE HAS A MODERATE HEADACHE 9/10, SENSITIVITY TO LIGHT AND TREMORS. HE IS ABLE TO DO SIMPLE ADDITION. PATIENT RECEIVED LIBRIUM 50MG PO WITH DIFFICULTY SWALLOWING, 2MG ATIVAN THAT GAVE HIM RELIEF FOR ABOUT 1/2HR AND THEN 3MG HOUR LATER THAT GAVE HIM VERY LITTLE RELIEF.
--- NOTE | 2021-08-31 22:48 | NUR ---
RECEIVED NEW ORDERS TO TRANSFER TO ICU STATUS, PRECEDEX STARTED AT 0.2MCG/KG/HR AT 4.4ML/HR.
[2021-09-01 03:49] LABS: Hemoglobin 7.8 g/dL (13.5-17.5); Mean Corpuscular HGB 31.5 pg (26.0-34.0); Mean Corpuscular HGB Conc 33.9 g/dL (31.5-36.5); Mean Corpuscular Volume 93 fL (80-100); Mean Platelet Volume 9.6 fL (9.1-12.4); Platelet Count 289 K/mm3 (150-400); RDW Coefficient Variation 14.3 % (11.7-14.2); RDW Standard Deviation 48.3 fL (35.1-46.3); Red Blood Cell Count 2.48 M/mm3 (4.30-5.90); White Blood Cell Count 6.91 K/mm3 (4.00-11.30)
[2021-09-01 04:04] LABS: Anion Gap 5 mmol/L (6-16); Blood Urea Nitrogen 5 mg/dL (8-24); Bun/Creatinine Ratio 10.1 (12.0-20.0); CO2, Blood 29 mmol/L (21-32); Calcium, Blood 7.7 mg/dL (8.5-10.1); Chloride, Blood 98 mmol/L (98-108); Glomerular Filtration Rate >60 (60-); Glucose, Blood 123 mg/dL (70-99); Potassium, Blood 4.4 mmol/L (3.5-5.5); Sodium, Blood 132 mmol/L (136-145)
--- NOTE | 2021-09-01 07:45 | NUR ---
INITIAL ASSESSMENT: Patient is resting with his eyes closed on his right side. He awakens to verbal stimuli. He is able to tell me his name and birthday. He states he is in [facility] and the year is 1978. He reports 8/10 pain in his left chest, this exacerbates with coughing and deep breathing. HRR. LS dim t/o. Biox wnl on ra, oxygen was below his chin. BT+. PPP, no edema present. Patient has a Lac to left eyebrow and his nose is visibly swollen. He also has mepilex to bilat elbows. He has healing scabs to bilateral knees and bruising to left hip. VSS. Lewis vest in place for impulsiveness and high fall risk. Call light in reach. Will continue to monitor.
--- NOTE | 2021-09-01 10:24 | NUR ---
Update: Dr. Wahl here to see the patient, see new orders. Patient given Percocet for pain. Son provided update on patient. Patient is resting comfortably with eyes closed, will continue to monitor.
--- NOTE | 2021-09-01 13:03 | NUR ---
UPDATE: Patient is OOB to chair. He pulled his condom cath off, requesting to stand and urinate. pt has dark tarry smear in attends. Patient assisted to the BSC with 2 person assist, unsteady gait and patient plopped down on BSC. After he was done on the bedside commode he was assisted to the recliner with chair alarm in place. Call light in reach, patient denies other needs at this time. Will continue to monitor
--- NOTE | 2021-09-01 15:30 | NUR ---
ASSESSMENT: Patient is still in the recliner. Patient tried to climb out of the recliner to find his belongings and put his pants and shoes back on. Patient requested to have an geoffrey tray earlier. I informed them this is a tabacco free campus, I did offer to get him a nicotine patch, he told this RN, "they don't work." VSS. CIWA now 13, precedex restarted. Will reassess. Call light in reach. Bart vest in place.
--- NOTE | 2021-09-01 18:16 | NUR ---
SUMMARY: Patient has done well through out the shift. CIWA has been between 10-19, he was medicated with Librium. Precedex gtt was turned off this am due to hypotension after Percocet was given. Precedex gtt was turned back on late afternoon when CIWA's esclated. Patient spent some time in the recliner today and is back in bed. Patient denies needs at this time and is now resting when undisturbed, Precedex gtt infusing at 0.2 mcg/kg/HR. Will report to oncoming RN.
[2021-09-02 04:16] LABS: Hematocrit 25.4 % (37.0-53.0); Hemoglobin 8.3 g/dL (13.5-17.5); Mean Corpuscular HGB 31.2 pg (26.0-34.0); Mean Corpuscular HGB Conc 32.7 g/dL (31.5-36.5); Mean Corpuscular Volume 96 fL (80-100); Mean Platelet Volume 9.5 fL (9.1-12.4); Platelet Count 350 K/mm3 (150-400); RDW Coefficient Variation 14.6 % (11.7-14.2); RDW Standard Deviation 50.6 fL (35.1-46.3); Red Blood Cell Count 2.66 M/mm3 (4.30-5.90); White Blood Cell Count 7.31 K/mm3 (4.00-11.30)
[2021-09-02 04:45] LABS: Anion Gap 6 mmol/L (6-16); Blood Urea Nitrogen 4 mg/dL (8-24); Bun/Creatinine Ratio 7.4 (12.0-20.0); CO2, Blood 27 mmol/L (21-32); Calcium, Blood 8.2 mg/dL (8.5-10.1); Chloride, Blood 102 mmol/L (98-108); Creatinine, Blood 0.54 mg/dL (0.60-1.20); Glomerular Filtration Rate >60 (60-); Glucose, Blood 131 mg/dL (70-99); Potassium, Blood 4.1 mmol/L (3.5-5.5); Sodium, Blood 135 mmol/L (136-145)
--- NOTE | 2021-09-02 05:47 | NUR ---
SHIFT SUMMARY PATIENT ALERT AND ORIENTED TO SELF, DATE, AND CURRENT PRESIDENT OVERNIGHT. WHEN ASKED WHERE THE PATIENT IS, HE STATES "[facility]". PRECEDEX GTT INFUSING AT 0.2 MCG/KG/HR. WAKES WITH VERBAL STIMULI. CONTINUOUS PROTONIX AND OCREOTIDE ACETATE INFUSING WELL. CIWA's LESS THAN 8 THROUGHOUT SHIFT. GIAN VEST IN PLACE FOR PATIENT'S PROTECTION. COMPLAINTS OF HEADACHE AND RIB PAIN ONCE THIS SHIFT, MEDICATED PER EMAR. 2L NC WHILE PATIENT IS SLEEPING DUE TO DESATURATION. OXYGEN SATURATION ABOVE 95% WITH O2 IN PLACE. NO OTHER SIGNIFICANT CHANGES TO PATIENT'S STATUS THIS SHIFT.
--- NOTE | 2021-09-02 12:33 | NUR ---
UPDATE AT 1154, PT WAS ABLE TO SIT UP TO THE EDGE OF THE BED WITH SUPERVISION. PT REPORTED SLIGHT SOB AND DIZZINESS, O2 SATS AT 97% ON 2L NC. PT WAS ABLE TO STAND FOR 1-2 MINUTES WHILE BEING CLEANED OF STOOL. PT THEN WAS SEATED IN RECLINER. PT TOLERATED FAIR.
--- NOTE | 2021-09-02 16:22 | NUR ---
UPDATE CONTACTED DR BAER FOR UPDATE ON PT. INFORMED DR BAER THAT PT HAS BEEN OFF OF PRECEDEX ALL SHIFT AND HAS BEEN BEING TREATED WITH 2MG ATIVAN FOR ETOH W/D, PT TOLERATING WELL. DR BAER INSTRUCTED THIS RN TO MAKE PT MEDICAL STATUS WITH TELE.
--- NOTE | 2021-09-02 17:48 | NUR ---
SHIFT SUMMARY PT A/O X 3-4, FORGETFULL AT TIMES. PT NEEDS REASSURANCE OF CARE AND REMINDED OF WHY HE IS ON TELE, COOPERATIVE AFTER REASSURANCE. VSS T/O SHIFT, WITH NO REPORTS OF CHEST PAIN/PRESSURE. BRIEF SOB REPORTED WHEN PT SAT AT EDGE OF BED EARLY THIS MORNING. PT WAS UP TO RECLINER FOR 2-3 HOURS, TOLERATED FAIR. PT HAS BEEN RECIEVING 2L NC T/O SHIFT SATS >98%. PT CIWA SCORES 11-21, TREATED PER EMAR. PT HAS BEEN TOLERATING CLEAR LIQUID DIET VERY WELL. PT REPORTED CONSTANT PAIN OF HIS RIBS AND HEAD, TREATED PER EMAR.
--- NOTE | 2021-09-02 19:33 | NUR ---
TRANSFER ASSUMPTION OF CARE AT 1915, PATIENT SITTING IN BED WITH JTAC's AT BEDSIDE. TRANSFER TO ROOM 346 WITH ALL BELONGINGS VIA HOSPITAL BED. REPORT CALLED BY DAY SHIFT RNs.
--- NOTE | 2021-09-02 20:30 | NUR ---
PATIENT TRANSFER FROM U 08. FOUR PERSON TRANSFER FROM [facility] TO BED. ON 2L O2 NC. IV PROTINIX AND IV SANDOSTATIN INFUSING. IN GIAN VEST. ONE BED EXIT ATTEMPT SINCE ARRIVAL ON CAMERA. AXOX 3 AND NOT FOLLOWING DIRECTIONS. CALL LIGHT IN REACH.
--- NOTE | 2021-09-03 01:58 | NUR ---
PATIENT MULTIPLE OOB ATTEMPTS T/O SHIFT SWINGING LEGS OVER RAILS, ON CAMERA. WCTM.
--- NOTE | 2021-09-03 03:30 | NUR ---
SHIFT SUMMARY PATIENT HAD NO ACUTE CHANGES OBSERVED. NOT ABLE TO FOLLOW DIRECTIONS AT THIS TIME. MULTIPLE OOB ATTEMPTS PER CAMERA TECH. DENIES CHEST PAIN, SOB, AND N/V. CIWA'S AVERAGE 9. IV ATIVAN 2 MG GIVEN X TWO PER CIWA SCORE. LIBRIUM 25 MG GIVEN PER CIWA SCORE X ONE. PO TRAMADOL GIVEN FOR HEAD/RIB PAIN. PIVS REMAIN INTACT. IV PROTONIX AND SANDOSTATIN INFUSING. DR REDD IN TO SEE PATIENT THIS SHIFT. [employer] REPORTS ST 102. ON 2L O2 NC. GIAN VEST AND BILATERAL SOFT WRIST RESTRAINTS PER ORDER. CALL LIGHT IN REACH. BED IN LOWEST POSITION. ON CAMERA. WILL CONTINUE TO MONITOR UNTIL DAY SHIFT NURSE ASSUMES CARE.
[2021-09-03 05:27] LABS: Hematocrit 25.2 % (37.0-53.0); Hemoglobin 8.2 g/dL (13.5-17.5); Mean Corpuscular HGB 31.2 pg (26.0-34.0); Mean Corpuscular HGB Conc 32.5 g/dL (31.5-36.5); Mean Corpuscular Volume 96 fL (80-100); Mean Platelet Volume 9.8 fL (9.1-12.4); Platelet Count 371 K/mm3 (150-400); RDW Coefficient Variation 15.1 % (11.7-14.2); RDW Standard Deviation 50.5 fL (35.1-46.3); Red Blood Cell Count 2.63 M/mm3 (4.30-5.90); White Blood Cell Count 9.17 K/mm3 (4.00-11.30)
--- NOTE | 2021-09-03 16:54 | NUR ---
SUMMARY PT AWAKE IN BED WATCHING TV, PT HAS BEEN PLEASANT AND COOPERATIVE WITH CARE, VERY FORGETFUL AND IMPULSIVE, FREQUENT ATTEMPTS TO GET OUT OF BED WITHOUT ASSISTANCE, PT VERY UNSTEADY ON HIS FEET, EDUCATED PT ON THE USE OF THE CALL LIGHT, PT WILL USE IT INCONSISTENTLY, MED PER EMAR FOR PAIN AND AGITATION, PT ABLE TO TAKE PILLS WHOLE WITH WATER, ABLE TO FEED HIMSELF, ALTHOUGH SPILLS FREQUENTLY, UP TO THE COMMODE WITH 1-2 P ASSIST, NEEDS FREQUENT REORIENTATION, VSS, WILL CONT TO MONITOR
[2021-09-04 06:04] LABS: Hematocrit 23.9 % (37.0-53.0); Mean Corpuscular HGB Conc 33.5 g/dL (31.5-36.5); Mean Corpuscular Volume 96 fL (80-100); Mean Platelet Volume 9.5 fL (9.1-12.4); Platelet Count 423 K/mm3 (150-400); RDW Coefficient Variation 15.5 % (11.7-14.2); RDW Standard Deviation 52.8 fL (35.1-46.3); White Blood Cell Count 11.03 K/mm3 (4.00-11.30)
--- NOTE | 2021-09-04 09:41 | NUR ---
09/04/21 0941 Ashish Colmenares History, Chart, Medications and Allergies reviewed before start of procedure.MONITOR INTACT WITH CONTINUOUS PULSE OXIMETRY AND INTERMITTENT BP.3-LEAD EKG REVIEWED WITH PHYSICIAN PRIOR TO START OF PROCEDURE.O2 VIA N/C INTACT THROUGHOUT SEDATION/PROCEDURE. PATIENT DETERMINED TO BE ASA APPROPRIATE FOR PROPOFOL SEDATION PRIOR TO START OF PROCEDURE BY DR. REDD.
--- NOTE | 2021-09-04 17:08 | NUR ---
SHIFT SUMMARY PATIENT IS ALERT AND ORIENTED X2. PATIENT HAS BEEN PLEASENT AND COOPERATIVE WITH CARE. PATIENT WAS IN TOUGH CUFFS IN UPPER ARMS AND SOFT RESTRAINTS FOR LOWER EXTREMITIES. PATIENT WAS DOWNGRADED TO SOFT RESTRAINTS ON ALL 4 EXTREMITIES. PATIENT HAS TOLERATED WELL AND HAS NOT GOTTEN OUT OF RESTRAINTS SINCE. PATIENT IS ABLE TO TAKE PILLS WHOLE WITH WATER. NO ACUTE EVENTS THIS SHIFT. VITAL SIGNS REVIEWED. BED IN LOWEST POSITION. CALL LIGHT IN PLACE. WILL CONTINUE TO MONITOR UNTIL SHIFT CHANGE.
[2021-09-05 05:09] LABS: Hematocrit 23.4 % (37.0-53.0); Hemoglobin 7.8 g/dL (13.5-17.5); Mean Corpuscular HGB 31.3 pg (26.0-34.0); Mean Corpuscular HGB Conc 33.3 g/dL (31.5-36.5); Mean Corpuscular Volume 94 fL (80-100); Mean Platelet Volume 9.1 fL (9.1-12.4); Platelet Count 421 K/mm3 (150-400); RDW Coefficient Variation 15.4 % (11.7-14.2); RDW Standard Deviation 51.5 fL (35.1-46.3); Red Blood Cell Count 2.49 M/mm3 (4.30-5.90); White Blood Cell Count 9.76 K/mm3 (4.00-11.30)
[2021-09-05 05:27] LABS: Anion Gap 6 mmol/L (6-16); Blood Urea Nitrogen 6 mg/dL (8-24); Bun/Creatinine Ratio 10.3 (12.0-20.0); CO2, Blood 28 mmol/L (21-32); Calcium, Blood 8.5 mg/dL (8.5-10.1); Chloride, Blood 102 mmol/L (98-108); Creatinine, Blood 0.59 mg/dL (0.60-1.20); Glomerular Filtration Rate >60 (60-); Glucose, Blood 89 mg/dL (70-99); Sodium, Blood 136 mmol/L (136-145)
--- NOTE | 2021-09-05 07:08 | NUR ---
PATIENT MUCH MORE RESTFUL OVERNIGHT. HE ONLY HAD ONE BRIEF PERIOD OF AGITATION WHEN HE DID NOT GET THE RELIEF HE WAS SEEKING FOR HIS MIGRAINE. HE LATER INFORMED THIS RN THAT HE THOUGHT HE WAITED TOO LONG TO ASK FOR PAIN RELIEF. FIORACET WAS GIVEN PER HIS REQUEST, AND 2 MG ATIVAN FOR HIS AGITATION. Nabeel THEN FELL ASLEEP AND SLEPT MOST OF THE NIGHT WITHOUT ANY SIGNS OF DISCOMFORT. RESTRAINTS REMAIN SOFT TIMES 4, A GIAN VEST AND 4 RAILS
--- NOTE | 2021-09-05 17:19 | NUR ---
SHIFT SUMMARY PATIENT ALERT AND ORIENTED X3. PATIENT REMAINS IN 4 POINT SOFT RESTRAINTS, GIAN, AND 4 SIDE RAILS DUE TO IMPULSIVENESS, FORGETFULNESS, AND WEAKNESS. PATIENT MADE MULTIPLE ATTEMPTS THIS SHIFT TO REMOVE RESTRAINTS. PATIENT COOPERATIVE WITH RESTRAINT REPLACEMENT WHEN REMINDED OF NEED. PATIENT CALM AND COOPERATIVE WITH CARE THROUGHOUT THIS SHIFT. PATIENT MEDICATED 2X THIS SHIFT FOR MIGRAINE, PER EMAR. PATIENT CURRENTLY SITTING UP IN BED WATCHING TELEVISION.
--- NOTE | 2021-09-06 05:38 | NUR ---
Solo slept well last night, no calling out, reduced pushing on rails, no notices attempts to get oob. patient is alert and cooperative with care, voiding in the urinal without difficulty. states he has had minimal luck getting completely rid of his migraine
[2021-09-06 07:13] LABS: Hematocrit 26.3 % (37.0-53.0); Hemoglobin 8.5 g/dL (13.5-17.5); Mean Corpuscular HGB 30.4 pg (26.0-34.0); Mean Corpuscular HGB Conc 32.3 g/dL (31.5-36.5); Mean Corpuscular Volume 94 fL (80-100); Mean Platelet Volume 8.9 fL (9.1-12.4); Platelet Count 458 K/mm3 (150-400); RDW Coefficient Variation 15.5 % (11.7-14.2); RDW Standard Deviation 52.1 fL (35.1-46.3); White Blood Cell Count 7.61 K/mm3 (4.00-11.30)
[2021-09-06 07:34] LABS: Anion Gap 3 mmol/L (6-16); Blood Urea Nitrogen 7 mg/dL (8-24); Bun/Creatinine Ratio 11.5 (12.0-20.0); CO2, Blood 28 mmol/L (21-32); Calcium, Blood 8.5 mg/dL (8.5-10.1); Chloride, Blood 105 mmol/L (98-108); Creatinine, Blood 0.61 mg/dL (0.60-1.20); Glomerular Filtration Rate >60 (60-); Glucose, Blood 94 mg/dL (70-99); Potassium, Blood 3.5 mmol/L (3.5-5.5); Sodium, Blood 136 mmol/L (136-145)
--- NOTE | 2021-09-06 17:51 | NUR ---
SHIFT SUMMARY PATIENT ALERT TO SELF AND SITUATION. PATIENT KNOWS HE IS IN A HOSPITAL, BUT HAS DIFFICULTY STATING WHICH [place]. PATIENT MORE ALERT THIS SHIFT AND ABLE TO HOLD A CONVERSATION. PATIENT WORKED WITH PT/OT THIS SHIFT, WALKING IN THE ROOM. PATIENT MEDICATED PER EMAR FOR MIGRAINE. PATIENT CALM AND COOPERATIVE WITH CARE. PATIENT CURRENTLY SITTING UP IN BED WATCHING TELEVISION.
--- NOTE | 2021-09-06 22:54 | NUR ---
PHYSICIAN COMMUNICATION CONTACTED POWERHOUSE MECHANIC APPRENTICE PHYSICIAN, DR BAER, TO NOTIFY HIM THAT THE PATIENT WAS REQUESTING MELATONIN TO HELP HIM SLEEP. DR BAER ORDERED 5 MG MELATONIN PRN FOR SLEEP.
--- NOTE | 2021-09-07 05:49 | NUR ---
SHIFT SUMMARY PATIENT ALERT AND ORIENTED X3. CONFUSED AT TIMES. MEDICATED PER EMAR FOR PAIN. NO COMPLAINTS OF SHORTNESS OF BREATH. NO ACUTE ISSUES NOTED OVERNIGHT. CALL LIGHT WITHIN REACH. REPORT GIVEN TO ONCOMING RN.
--- NOTE | 2021-09-07 18:00 | NUR ---
SHIFT SUMMARY PT SITTING ON SIDE OF BED FOR MEALS. GIAN VEST REMOVED THIS AFTERNOON DUE TO CONTINUED APPROPRIATE MENTATION. BED ALARM ON FOR SAFETY. SHOWER TAKEN AND TOLERATED WELL. CONTINUES WITH SOME WITHDRAWAL SYMPTOMS BUT HEADACHE IMMPROVED SINCE A.M. AND TOLERATING MEALS. TENTATIVE PLAN FOR PT TO GO TO [facility] TOMORROW [facility] HAS BED AVAILABLE. PT AWARE OF PLAN AND AGREEABLE.
--- NOTE | 2021-09-08 04:16 | NUR ---
PT A/O X4. MEDICATED FOR HEADACHE AND L SIDED RIB PAIN TOWARDS BEINNING OF NOC SHIFT. CONTIENT AND USES CALL LIGHT APPROPRIATELY. AMBULATES WITH SBA TO BATHROOM WITH FWW. VITALS STABLE, ROOM AIR, DENIES SOB. CIWAS STABLE WITH A SCORE OF 4 OVERNIGHT. NO ACUTE CHANGES. CALL LIGHT WITHIN REACH, BED ALARM ON, WILL CONTINUE TO MONITOR.
[2021-09-08 06:11] LABS: Hematocrit 27.8 % (37.0-53.0); Mean Corpuscular HGB 30.4 pg (26.0-34.0); Mean Corpuscular HGB Conc 32.4 g/dL (31.5-36.5); Mean Corpuscular Volume 94 fL (80-100); Mean Platelet Volume 8.7 fL (9.1-12.4); Platelet Count 523 K/mm3 (150-400); RDW Coefficient Variation 15.6 % (11.7-14.2); RDW Standard Deviation 52.7 fL (35.1-46.3); Red Blood Cell Count 2.96 M/mm3 (4.30-5.90); White Blood Cell Count 8.15 K/mm3 (4.00-11.30)
[2021-09-08 06:25] LABS: Anion Gap 4 mmol/L (6-16); Blood Urea Nitrogen 8 mg/dL (8-24); Bun/Creatinine Ratio 13.7 (12.0-20.0); CO2, Blood 26 mmol/L (21-32); Calcium, Blood 8.8 mg/dL (8.5-10.1); Chloride, Blood 107 mmol/L (98-108); Creatinine, Blood 0.58 mg/dL (0.60-1.20); Glomerular Filtration Rate >60 (60-); Glucose, Blood 98 mg/dL (70-99); Potassium, Blood 4.2 mmol/L (3.5-5.5); Sodium, Blood 137 mmol/L (136-145)
[2021-09-08] MEDS ORDERED: TRAM50 PO (11:22)
[2021-09-08] MEDS ORDERED: ACET325 PO (11:22)
[2021-09-08 12:35] LABS: SARS-Cov-2 (COVID-19) PCR, MMC NEGATIVE (NEGATIVE)
--- NOTE | 2021-09-08 15:43 | NUR ---
PT PICKED UP AT 1500 BY [facility] TO BE TRANSPORTED TO [facility] [place]. DISCHARGE INSTRUCTIONS COMPLETED AND DISCUSSED WITH PT EXPRESSING UNDERSTANDING. DID HAVE QUESTIONS ABOUT MEDS WHEN HE DISCHARGES FROM THE [place] BUT WAS UNABLE TO ANSWER HIS QUESTIONS. VA COORDINATOR FOR FACILITY IS RAMAN VALENZUELA [phone]. PT LEFT WITH WALLET AND CLOTHING HE CAME WITH. REPORTED HE CAME WITH A PHONE AND SHIP'S ELECTRONIC WARFARE OFFICER WELL BUT NEITHER FOUND IN ROOM PRIOR TO DISCHARGING.
== END 2021-09-08 14:32 | DRG 378 ==
LOC: ER 19:43 → PCU 19:44 → MEDS 08-31 17:11 → PCU 08-31 17:11 → MEDS 09-02 19:33
PROVIDERS: Internal Medicine; Internal Medicine Gastroenterology; Student in an Organized Health Care Education/Training Program; ADMIT Internal Medicine
PROC: HZ2ZZZZ Detoxification Services for Substance Abuse Treatment (ICD-10-PCS; principal; 2021-08-31)
PROC: 0DJ08ZZ Inspection of Upper Intestinal Tract, Via Natural or Artificial Opening Endoscopic (ICD-10-PCS; 2021-09-04)
DX: K92.0 Hematemesis (principal); F10.239 Alcohol dependence with withdrawal, unspecified; S02.32XA Fracture of orbital floor, left side, initial encounter for closed fracture; E87.1 Hypo-osmolality and hyponatremia; I10 Essential (primary) hypertension; Z20.822 Contact with and (suspected) exposure to COVID-19; G40.909 Epilepsy, unspecified, not intractable, without status epilepticus; G43.909 Migraine, unspecified, not intractable, without status migrainosus; F17.210 Nicotine dependence, cigarettes, uncomplicated; K92.1 Melena; J43.9 Emphysema, unspecified; K70.9 Alcoholic liver disease, unspecified; F32.9 Major depressive disorder, single episode, unspecified; Z86.73 Personal history of transient ischemic attack (TIA), and cerebral infarction without residual deficits; Z87.820 Personal history of traumatic brain injury; Z98.1 Arthrodesis status; Z98.890 Other specified postprocedural states; Z88.8 Allergy status to other drugs, medicaments and biological substances; Z79.899 Other long term (current) drug therapy; E16.2 Hypoglycemia, unspecified; D64.9 Anemia, unspecified; S02.2XXA Fracture of nasal bones, initial encounter for closed fracture; W18.39XA Other fall on same level, initial encounter; Y90.6 Blood alcohol level of 120-199 mg/100 ml
CPT/HCPCS: 36415; 80048; 80053; 82550; 82553; 82947; 83690; 84484; 85014; 85018; 85025; 85027; 85610; 86850; 86900; 86901; 93005; 93010; 94760; 96365; 96366; 96368; 96375; 96376; 97110; 97116; 97162; 97165; 97530; 97535; 99285-25; A9270; C1751; C9113; G0378; G0480; J0696; J2060; J2354; J2405; J2704; J3010; J3411; J3475; J7030; J7042; J7050; J7120; U0004

== ENCOUNTER 2022-01-29 19:50 | Inpatient (IN) | payer OTHER ==
[~2022-01-29] VITALS: Ht 180.3 cm; Wt 88.0 kg
[~2022-01-29 19:50] MED LIST changes: +ACET325 PO; +Hair, Skin & N1 EACH PO; +Hydroxyzine HCl50 MG PO; +LISI5 PO; +Seroquel300 MG PO; +TRAM50 PO; +Viagra100 MG PO
[2022-01-29 20:33] LABS: BASOPHILS ABSOLUTE AUTO 0.03 K/mm3 (0.00-0.23); EOSINOPHILS ABSOLUTE AUTO 0.04 K/mm3 (0.00-0.68); IMMATURE GRAN ABSOLUTE AUTO 0.01 K/mm3 (0.00-0.10); LYMPHOCYTES ABSOLUTE AUTO 1.08 K/mm3 (0.84-5.20); LYMPHOCYTES PERCENT AUTO 20 % (21-46); MONOCYTES ABSOLUTE AUTO 0.41 K/mm3 (0.16-1.47); MONOCYTES PERCENT AUTO 8 % (4-13); NEUTROPHILS ABSOLUTE AUTO 3.81 K/mm3 (1.96-9.15); NEUTROPHILS PERCENT AUTO 71 % (41-73)
[2022-01-29 20:35] LABS: BASOPHILS PERCENT AUTO 1 % (0-2); EOSINOPHILS PERCENT AUTO 1 % (0-6); Hematocrit 37.2 % (37.0-53.0); Hemoglobin 12.9 g/dL (13.5-17.5); IMMATURE GRAN PERCENT AUTO 0 % (0-1); Mean Corpuscular HGB 28.1 pg (26.0-34.0); Mean Corpuscular HGB Conc 34.7 g/dL (31.5-36.5); Mean Corpuscular Volume 81 fL (80-100); Mean Platelet Volume 9.4 fL (9.1-12.4); Platelet Count 131 K/mm3 (150-400); RDW Coefficient Variation 23.7 % (11.7-14.2); RDW Standard Deviation 70.1 fL (35.1-46.3); Red Blood Cell Count 4.59 M/mm3 (4.30-5.90); White Blood Cell Count 5.25 K/mm3 (4.00-11.30)
[2022-01-29 20:49] LABS: Alanine Aminotransfer (ALT/SGP 288 U/L (12-78); Albumin, Blood 3.5 g/dL (3.4-5.0); Albumin/Globulin Ratio 0.9 (0.8-1.8); Alk Phos 106 U/L (50-136); Anion Gap 14 mmol/L (6-16); Aspartate Aminotrans (AST/SGOT 589 U/L (12-37); Bilirubin, Total 0.6 mg/dL (0.1-1.0); Blood Urea Nitrogen 5 mg/dL (8-24); Bun/Creatinine Ratio 8.3 (12.0-20.0); CO2, Blood 21 mmol/L (21-32); Chloride, Blood 96 mmol/L (98-108); Ethanol (Alcohol), Blood, Med 279 mg/dL; Globulin, Blood 3.9 g/dL (2.2-4.0); Glomerular Filtration Rate >60 (60-); Glucose, Blood 95 mg/dL (70-99); Potassium, Blood 3.5 mmol/L (3.5-5.5); Sodium, Blood 131 mmol/L (136-145); Total Protein, Blood 7.4 g/dL (6.4-8.2)
[2022-01-30 01:38] LABS: Influenza A, PCR NEGATIVE (NEGATIVE); Influenza B, PCR NEGATIVE (NEGATIVE); Resp Syncytial Virus, PCR NEGATIVE (NEGATIVE); SARS-Cov-2 (COVID-19) PCR, MMC NEGATIVE (NEGATIVE)
[2022-01-30] MEDS ORDERED: IBUP800 PO (03:49)
[2022-01-30 03:56] LABS: U Amphetamine Screen Not Detected; U Barbituate Screen Not Detected; U Benzodiazapine Screen Not Detected; U Buprenorphine Screen Not Detected; U Cannabinoids Screen Not Detected; U Cocaine Screen Not Detected; U Methadone Screen Not Detected; U Methamphetamine Screen Not Detected; U Opiates Screen DETECTED; U Oxycodone Screen Not Detected; U Phencyclidine Screen Not Detected; U Propoxyphene Screen Not Detected
[2022-01-30 04:28] LABS: BASOPHILS ABSOLUTE AUTO 0.04 K/mm3 (0.00-0.23); BASOPHILS PERCENT AUTO 1 % (0-2); EOSINOPHILS ABSOLUTE AUTO 0.05 K/mm3 (0.00-0.68); EOSINOPHILS PERCENT AUTO 1 % (0-6); Hematocrit 37.8 % (37.0-53.0); Hemoglobin 12.9 g/dL (13.5-17.5); IMMATURE GRAN ABSOLUTE AUTO 0.02 K/mm3 (0.00-0.10); IMMATURE GRAN PERCENT AUTO 0 % (0-1); LYMPHOCYTES ABSOLUTE AUTO 1.01 K/mm3 (0.84-5.20); LYMPHOCYTES PERCENT AUTO 13 % (21-46); MONOCYTES ABSOLUTE AUTO 0.57 K/mm3 (0.16-1.47); MONOCYTES PERCENT AUTO 8 % (4-13); Mean Corpuscular HGB Conc 34.1 g/dL (31.5-36.5); Mean Corpuscular Volume 82 fL (80-100); Mean Platelet Volume 9.2 fL (9.1-12.4); NEUTROPHILS ABSOLUTE AUTO 5.92 K/mm3 (1.96-9.15); NEUTROPHILS PERCENT AUTO 78 % (41-73); Platelet Count 137 K/mm3 (150-400); RDW Coefficient Variation 23.9 % (11.7-14.2); RDW Standard Deviation 71.8 fL (35.1-46.3); White Blood Cell Count 7.61 K/mm3 (4.00-11.30)
[2022-01-30 04:47] LABS: Anion Gap 10 mmol/L (6-16); Blood Urea Nitrogen 5 mg/dL (8-24); CO2, Blood 24 mmol/L (21-32); Calcium, Blood 8.4 mg/dL (8.5-10.1); Chloride, Blood 97 mmol/L (98-108); Glomerular Filtration Rate >60 (60-); Glucose, Blood 95 mg/dL (70-99); Magnesium, Blood 2.3 mg/dL (1.6-2.4); Phosphorus, Blood 3.7 mg/dL (2.5-4.9); Potassium, Blood 3.4 mmol/L (3.5-5.5); Sodium, Blood 131 mmol/L (136-145)
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
--- NOTE | 2022-01-30 10:05 | NUR ---
PT TO SDS, CIWA COMPLETED ON ARRIVAL SCORE OF 9. DR. WOODALL NOTIFIED. + DIAPHORESIS, TREMORS c EXTENDED HANDS AND NAUSEA. PT ROGERS X 4, MOVES UNEFFECTED EXT, SK-P W AND DIAPHORETIC. DENIES WADE, VISUAL/AUDITORY HALLUCINATIONS. IV X 2 STARTED. PT SITITNG UP IN BED, WRETCHING, NO EMESIS NOTED.
--- NOTE | 2022-01-30 12:42 | NUR ---
TELEPHONE REPORT PROVIDED TO KAROLINA CASTILLO, CHARGE NURSE.
--- NOTE | 2022-01-30 12:43 | NUR ---
CNAS TOOK OVER PERSONAL POSSESSIONS
--- NOTE | 2022-01-30 15:35 | NUR ---
ASSUMED CARE OF PATIENT AT APPROX 1315; PT TO ROOM FROM PACU POST RADIAL FIXATION. RECEIVED BEDSIDE REPROT FROM PASHA TURCIOS RN. PT RESPONDS TO VERBAL STIMULI, ORIENTED TO SELF AND PLACE, DOES NOT ANSWER ALL QUESTIONS. CIWA 12-16 T/O SHIFT, WILL MEDICATED PER ORDERS. PT ON 2L O2 VIA NC, RA AT BASELINE. SPO2 >90%. ST DEPRESSION NOTED ON TELE; NOTIFIED DR BAER, EKG COMPLETED. SINUS/SINUS TACH. LS DIM T/O. BT HYPOACTIVE T/O; SOFT NONTEDNER, PASSING GAS. HELEN ELEVATED, EDUCATING PT NOT TO USE ARM. PT RECEIVING POTASSIUM CHLOIRIDE IV AND IV FLUIDS PER ORDERS. VSS. NO OHTER ACUTE CHANGES NOTED. WILL CONTINUE TO MONITOR.
--- NOTE | 2022-01-30 17:40 | NUR ---
SHIFT SUMMARY PT APPEARS TO BE SLEEPING. VSS. NO S/SX OF DISTRESS NOTED. NO ACUTE CHANGES. WILL CONTINUE TO MONITOR.
--- NOTE | 2022-01-30 19:23 | NUR ---
PT HAS NOT VOIDED SINCE TRANSFERED TO PCU; BLADDER SCAN AT 587; NOTIFIED DR BAER, NEW ORDERS FOR STRAIGHT CATH NOW AND RECHECK BLADDER SCAN IN 6 HOURS.
--- NOTE | 2022-01-31 06:06 | NUR ---
SHIFT SUMMARY PT ALERT, ORIENTED TO SELF, PLACE. UNSURE OF DATE. FOLLOWS DIRECTIONS, PLEASANT. SP02>92% ON RA. TELEMETRY SHOWS NSR, HR 90'S. PT DID VOID X2 THIS SHIFT INTO URINAL. HAD TO STRONGLY ENCOURAGE PT TO USE URINAL BC PT DIDNT WANT TO. NO BM THIS SHIFT. FLUIDS INFUSING PER EMAR. CIWA 4-8 THIS SHIFT. LIBRIUM GIVEN PER MAR X1. PT C/O 06/05 RIB PAIN. MEDICATED PER EMAR X1. CALL LIGHT IN REACH.
[2022-01-31] MEDS ORDERED: VISBIOME 112.51 EACH PO (15:19)
[2022-01-31] MEDS ORDERED: AMOCLA875 PO (15:20)
--- NOTE | 2022-01-31 16:18 | NUR ---
Received referral from nurse career developer (Janet New) on 01/31/2022. Patient is to discharge with orders for home health and elected [facility]. Further discussion with nurse care managers (Janet New and Veronica Edward) indicate that patient is not safe for discharge as he lives alone. Nurse care managers are working on getting patient into SNF. No further interventions required. Doreen Bee Referral Liaison
--- NOTE | 2022-01-31 16:55 | NUR ---
DISCHARGE ORDER ENTERED. NOTIFIED DISCHARGE PLANNING AND MD OF CONCERNS REGARDING DISCHARGE. DISCHARGE PLANNING DISCUSSED WITH MD; NEW ORDER TO HOLD D/C. WILL CONTINUE TO MONITOR.
--- NOTE | 2022-01-31 16:56 | NUR ---
SHIFT SUMMARY PT A&Ox4; FORGETFUL AND IMPULSIVE AT TIMES. EDCUATED PT T/O DAY REGARDING ACTIVITY RESTRICTIONS FOR RIGHT ARM. PT REPORTS HEADACHE AND RIB/BACK PAIN, MEDICATED PER EMAR. CIWA MAX 11 THIS AFTERNOON, MEDICATED PER EMAR. PT DENIES CHEST PAIN/PRESSURE, SOB AND DIZZINESS. PT RECEIVING IV ANTIBIOTICS. 1 PERSON ASSIST IN ROOM WITH WALKER. ELEVATED BP THIS AM. SPO2 >90% ON RA. OTHER VSS. NO OTHER ACUTE CHANGES NOTED DURING SHIFT. WILL CONTINUE TO MONITOR UNTIL REPORT GIVEN TO ONCOMING RN.
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
--- NOTE | 2022-02-01 06:19 | NUR ---
SHIFT SUMMARY PT ALERT, ORIENTED TO SELF. SEE PREVIOUS NOTE FOR BEGINNING/MIDDLE OF SHIFT. PT REMAINS >92% ON RA. PT INCONTINENT OF URINE AND STOOL, LINEN CHANGE X2. CIWA MAXED AT 20, ATIVAN, LIBRIUM, PHENOBARBITOL, AND ATARAX GIVEN PER EMAR. PT ATTEMPTED TO GET OUT OF BED MUTIPLE TIMES FOR VARIOUS REASONS. GIAN IN PLACE. PT DID REMOVE CARIN WRAP AROUND SPLINT ONE ADDITIONAL TIME, BUT FOUND BY STAFF AND REPLACED. PT CURRENTLY SLEEPING IN ROOM, VERY SWEATY IN APPEARANCE. CALL LIGHT IN REACH.
--- NOTE | 2022-02-01 18:44 | NUR ---
SHIFT SUMMARY THIS AM PT ALERT, ORIENTED x1-2; PT ANXIOUS AND AGGITATED; CIWA SCORE OF 21 THIS AM, MEDICATED PER EMAR. PT APPEARS TO BE SLEEPING, REPOSING TO VERBAL AND TACTILE STIMULI AT TIMES. CIWA 8-21. PT REPORT GENERALIZED PAIN AND HEADACHE THIS AM. PT DENIES CHEST PAIN/PRESSURE, SOB, NAUSEA AND DIZZINESS. PT RECEIVING IV FLUIDS PER ORDERS. ELEVATED BP NOTED, MD AWARE. OTHER VSS. NO OTHER ACUTE CHANGES NOTED. REPORT GIVEN TO ONCOMING RN.
--- NOTE | 2022-02-01 19:45 | NUR ---
ASSUMPTION OF CARE: PATIENT HAS BEEN FEED DINNER, TO WHICH HE ALMOST COMPLETED ALL THE MEAL. IS NOW SLEEPING, WILL OBTAIN VITALS SIGNS WHEN DUE FOR PAIN MEDS, AND NEXT DOSE OF CIWA MEDICATION IF APPLICABLE. PATIENT CURRENLTY IN SR 80-90'S, RR IN THE UPPER TEENS. MENTATION: ABLE TO ATTEMPT TO ANSWER QUESTIONS, BUT DOES NOT ANSWER CORRECTLY IS SLOW TO RESPOND, DENIES PAIN IN HIS CHEST, BUT ENDORSES A LEVEL 7 PAIN IN LOWER BACK THAT RADIATES INTO HIS LEGS. ON RA WILL CONTINUE TO MONITOR AND REACCESS.
--- NOTE | 2022-02-02 04:31 | NUR ---
END OF SHIFT: PATIENT IS CURRENLTY RESTING, HAS LR RUNNING AT SAME RATE, HAVE ONLY TREATED WITH LIBRIUM ONCE, AND FOR PAIN ONCE WITH PAIN MEDICATION. PATIENT HAS EATEN MULTIPLE TIMES THROUGH THE NIGHT. PATIENT IS STILL CONFUSED, GIAN IN PLACE, STILL NEEDED HE AT TIMES WILL GET TRY TO GET OUT OF BED, HE IS PLEASANT AND IS REDIRECTABLE MOST OF THE TIME. PATIENT WAS GIVEN A BED BATH, LINEN CHANGE, DENIES CHEST PAIN OR SOB, CIWA WAS GREAT AND STARTED TO RISE WHICH WAS TREATED WITH LIBRIUM NO INCREASED CIWA SINCE. WILL CONTINUE TO MONITOR.
--- NOTE | 2022-02-02 16:27 | NUR ---
SHIFT SUMMARY Pt has been a/o x 3 today but sleeping on and off throughout the day. When he wakes he c/o pain to his righ arm and has been medicated per EMAR. His Iv was removed this morning as it had infiltrated and Dr Yeh wrote orders to dc his IV fluids and changed his IV meds to a PO alternative. Pt has has a good appetite and his diet was modified to finger foods so that he could feed himself and he did well with this. His right arm remains in the splint and has been elevated on a pillow. He is positive for circulation, movement and sensation. He is still impulsive at times and trying to get up out of the bed and so his marlyn remains in place along with the bed alarm for safety. He is able to make his needs known when asked but I have yet to see him use his call light. He is resting now with the TV on.
--- NOTE | 2022-02-02 18:38 | NUR ---
TRANSFER Report called to medical floor nurse. All personal belongings have been packed to send with the pt. Pt stable upon transfer.
--- NOTE | 2022-02-02 18:54 | NUR ---
PT ARRIVED FROM PCU, TRANSFERRED TO BED, ORIENTED PT TO ROOM AND CALL SYSTEM, CALL LIGHT IN REACH
--- NOTE | 2022-02-03 06:11 | NUR ---
Rn summary: Patient is alert, oriented x3. Pt is slower to respond. Pt has marlyn vest on because pt is impulsive and a high fall risk. 2109 Pt did c/o a severe migraine headache with back and rib pain. Pt medicated with 2 [place] with good relief and was able to rest well. Pain med repeated at 0215, again with good relief. Pt is using the urinal with minimal assist. Rt lower arm remains in a splint. Pt has good sensation amd movement to rt hand. bed alarm is on, call light in reach.
--- NOTE | 2022-02-03 20:01 | NUR ---
SHIFT SUMMARY PT AXO, PLEASANT AND COOPERATIVE WITH CARE THOUGH SLOW TO RESPOND AND FORGETFUL. PT REQUESTED TO "GO OUTSIDE FOR FRESH AIR." THOUGH UPON BEING TAKEN OUTSIDE IN WHEELCHAIR WITH NUCLEAR MEDICINE MEDICAL DIRECTOR ESCORT, PT BEGAN TO SMOKE. NUCLEAR MEDICINE MEDICAL DIRECTOR TOLD PATIENT THAT THAT WAS NOT ALLOWED BUT PATIENT PROCEEDED AND STATED "WHAT ARE YOU GOING TO DO ABOUT IT." SHE NOTIFIED THIS NURSE RIGHT AWAY WHO ALSO ASKED PATIENT TO STOP. PT REFUSED. PT EDUCATED THAT HE IS NO LONGER ALLOWED TO GO OUTSIDE. RESTRAINTS DC'D AT 0930, DR GRAHAM. THOUGH OOB FREQUENTLY AND ON REMOTE MONITORING. BED IN LOW POSITION, CALL LIGHT WITHIN REACH THOUGH PATIENT DOES NOT USE THE CALL LIGHT.
--- NOTE | 2022-02-04 03:45 | NUR ---
SHIFT SUMMARY PT A/OX 3 DISORIENTED TO TIME BED ALARM ACTIVATED, PERSONAL BELONGINGS AND CALL ARGUETA IN REACH- CALLS APPROPRIATELY, CONTINENT VOIDING PT COMPLAINTS OF CONTINUED R.SIDE/BACK PAIN WITH HEADACHE. PAIN CONTROL PER EMAR PAIN MED ADMINISTRATION. REPOSITIONS INDEPENDENTLY IN BED, STAND BY ASSIST TO RESTROOM.
[2022-02-04 05:31] LABS: BASOPHILS ABSOLUTE AUTO 0.03 K/mm3 (0.00-0.23); BASOPHILS PERCENT AUTO 0 % (0-2); EOSINOPHILS ABSOLUTE AUTO 0.12 K/mm3 (0.00-0.68); EOSINOPHILS PERCENT AUTO 2 % (0-6); Hematocrit 35.6 % (37.0-53.0); Hemoglobin 11.7 g/dL (13.5-17.5); IMMATURE GRAN ABSOLUTE AUTO 0.02 K/mm3 (0.00-0.10); IMMATURE GRAN PERCENT AUTO 0 % (0-1); LYMPHOCYTES ABSOLUTE AUTO 1.15 K/mm3 (0.84-5.20); LYMPHOCYTES PERCENT AUTO 16 % (21-46); MONOCYTES ABSOLUTE AUTO 1.07 K/mm3 (0.16-1.47); MONOCYTES PERCENT AUTO 15 % (4-13); Mean Corpuscular HGB 28.9 pg (26.0-34.0); Mean Corpuscular HGB Conc 32.9 g/dL (31.5-36.5); Mean Corpuscular Volume 88 fL (80-100); Mean Platelet Volume 9.4 fL (9.1-12.4); NEUTROPHILS ABSOLUTE AUTO 4.63 K/mm3 (1.96-9.15); NEUTROPHILS PERCENT AUTO 66 % (41-73); Platelet Count 281 K/mm3 (150-400); RDW Coefficient Variation 23.6 % (11.7-14.2); RDW Standard Deviation 75.5 fL (35.1-46.3); Red Blood Cell Count 4.05 M/mm3 (4.30-5.90); White Blood Cell Count 7.02 K/mm3 (4.00-11.30)
[2022-02-04 05:53] LABS: Alanine Aminotransfer (ALT/SGP 94 U/L (12-78); Albumin/Globulin Ratio 0.8 (0.8-1.8); Alk Phos 83 U/L (50-136); Anion Gap 3 mmol/L (6-16); Aspartate Aminotrans (AST/SGOT 90 U/L (12-37); Bilirubin, Total 0.7 mg/dL (0.1-1.0); Blood Urea Nitrogen 6 mg/dL (8-24); Bun/Creatinine Ratio 11.6 (12.0-20.0); CO2, Blood 31 mmol/L (21-32); Calcium, Blood 8.9 mg/dL (8.5-10.1); Chloride, Blood 104 mmol/L (98-108); Creatinine, Blood 0.52 mg/dL (0.60-1.20); Glomerular Filtration Rate >60 (60-); Glucose, Blood 113 mg/dL (70-99); Potassium, Blood 3.2 mmol/L (3.5-5.5); Sodium, Blood 138 mmol/L (136-145)
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
--- NOTE | 2022-02-05 04:03 | NUR ---
SHIFT SUMMARY: PATIENT HAD INCREASED RESTLESSNESS THROUGHOUT SHIFT, ABLE TO SLEEP FOR A COUPLE HOURS AT A TIME. FREQUENTLY SITTING UP ON SIDE OF BED AND ATTEMPTING TO INDEPENDENTLY TAKE SELF TO BATHROOM. PT REMAINS AMBULATORY X1 STANDBY ASSIST DUE TO OCCASSIONAL UNSTEADINESS. BED ALARM ACTIVATED, CALL ARGUETA IN REACH, CAMERA MONITORING, A/OX3
--- NOTE | 2022-02-05 13:37 | NUR ---
DISCHARGE PATIENT TRANSPORTED VIA WHEELCHAIR TO [facility]. DISCHARGE INSTRUCTIONS EXPLAINED TO PATIENT. PATIENT STATED UNDERSTANDING. PACKET SENT WITH PATIENT. NO IV IN PLACE. SPLINT ON RIGHT ARM INTACT. BELONGINGS SENT WITH PATIENT. MEDICATIONS FAXED TO PERFERRED PHARMACY. PATIENT TO CALL MONDAY TO SCHEDULE FOLLOW UP APPOINTMENTS. NUMBERS FOR DOCTOR OFFICE GIVEN TO PATIENT. HARD SCRIPTS GIVEN TO PATIENT.
[2022-02-07 08:08] LABS: ETHYL ALCOHOL 0.081 gm/dL (.)
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
[2022-02-08 12:10] LABS: CANNABIDIOL Negative (.); CANNABINOID CONFIRMATION Positive (.); CANNABINOL Negative (.); CARBOXY-THC 2.4 ng/mL (.); HYDROXY-THC Negative (.); TETRAHYDROCANNABINOL(THC) Negative (.)
== END 2022-02-05 13:36 | disposition home health service (06) | DRG 510 ==
LOC: ER 19:50 → ERHOLD 01-30 00:59 → PCU 01-30 00:59 → SURS 01-30 00:59 → PCU 01-30 12:42 → MEDS 02-02 18:47 → ENPENDDIS 02-05 12:27 → MEDS 02-05 13:36
PROVIDERS: Emergency Medicine; Internal Medicine; Orthopaedic Surgery; ADMIT Surgery
PROC: 0PSH04Z Reposition Right Radius with Internal Fixation Device, Open Approach (ICD-10-PCS; principal; 2022-01-30 10:30)
DX: S52.101A Unspecified fracture of upper end of right radius, initial encounter for closed fracture (principal); G92.8 Other toxic encephalopathy; S22.31XA Fracture of one rib, right side, initial encounter for closed fracture; F10.239 Alcohol dependence with withdrawal, unspecified; Z20.822 Contact with and (suspected) exposure to COVID-19; F10.229 Alcohol dependence with intoxication, unspecified; S90.02XA Contusion of left ankle, initial encounter; J43.9 Emphysema, unspecified; I10 Essential (primary) hypertension; F17.210 Nicotine dependence, cigarettes, uncomplicated; Z88.8 Allergy status to other drugs, medicaments and biological substances; Z79.899 Other long term (current) drug therapy; Z90.89 Acquired absence of other organs; Z98.890 Other specified postprocedural states; Z86.73 Personal history of transient ischemic attack (TIA), and cerebral infarction without residual deficits; V03.99XA Pedestrian with other conveyance injured in collision with car, pick-up truck or van, unspecified whether traffic or nontraffic accident, initial encounter; Y90.8 Blood alcohol level of 240 mg/100 ml or more
CPT/HCPCS: 0241U; 29125; 36415; 51701; 51798; 70450; 71045; 71250; 72125; 73090; 73600; 74176; 80048; 80053; 83690; 83735; 84100; 85025; 86850; 86900; 86901; 90471; 90714; 93005; 93010; 96365; 96366; 96375; 97110; 97116; 97162; 97166; 97530; 97535; 99285-25; A9270; C1713; C9113; G0480; J0171; J0690; J1100; J1170; J2060; J2250; J2405; J2560; J2704; J3010; J3411; J3475; J3480; J7030; J7042; J7050; J7120

== ENCOUNTER 2022-03-01 03:16 | Observation (INO) | payer OTHER ==
[~2022-03-01] VITALS: Ht 182.9 cm; Wt 81.7 kg
[~2022-03-01 03:16] MED LIST changes: +AMOCLA875 PO; +IBUP800 PO; +VISBIOME 112.51 EACH PO
[2022-03-01 04:47] LABS: BASOPHILS ABSOLUTE AUTO 0.08 K/mm3 (0.00-0.23); BASOPHILS PERCENT AUTO 2 % (0-2); EOSINOPHILS ABSOLUTE AUTO 0.06 K/mm3 (0.00-0.68); EOSINOPHILS PERCENT AUTO 1 % (0-6); Hemoglobin 12.3 g/dL (13.5-17.5); IMMATURE GRAN ABSOLUTE AUTO 0.01 K/mm3 (0.00-0.10); IMMATURE GRAN PERCENT AUTO 0 % (0-1); LYMPHOCYTES ABSOLUTE AUTO 0.85 K/mm3 (0.84-5.20); LYMPHOCYTES PERCENT AUTO 19 % (21-46); MONOCYTES ABSOLUTE AUTO 0.73 K/mm3 (0.16-1.47); MONOCYTES PERCENT AUTO 16 % (4-13); Mean Corpuscular HGB 29.1 pg (26.0-34.0); Mean Corpuscular HGB Conc 31.5 g/dL (31.5-36.5); Mean Corpuscular Volume 92 fL (80-100); Mean Platelet Volume 9.8 fL (9.1-12.4); NEUTROPHILS ABSOLUTE AUTO 2.83 K/mm3 (1.96-9.15); NEUTROPHILS PERCENT AUTO 62 % (41-73); Platelet Count 164 K/mm3 (150-400); RDW Coefficient Variation 18.1 % (11.7-14.2); RDW Standard Deviation 61.9 fL (35.1-46.3); Red Blood Cell Count 4.23 M/mm3 (4.30-5.90); White Blood Cell Count 4.56 K/mm3 (4.00-11.30)
[2022-03-01 04:59] LABS: Alanine Aminotransfer (ALT/SGP 83 U/L (12-78); Albumin, Blood 3.1 g/dL (3.4-5.0); Albumin/Globulin Ratio 0.6 (0.8-1.8); Alk Phos 118 U/L (50-136); Anion Gap 9 mmol/L (6-16); Aspartate Aminotrans (AST/SGOT 94 U/L (12-37); Bilirubin, Total 0.3 mg/dL (0.1-1.0); Blood Urea Nitrogen 5 mg/dL (8-24); Bun/Creatinine Ratio 9.5 (12.0-20.0); CO2, Blood 24 mmol/L (21-32); Calcium, Blood 8.4 mg/dL (8.5-10.1); Chloride, Blood 106 mmol/L (98-108); Creatinine, Blood 0.52 mg/dL (0.60-1.20); Ethanol (Alcohol), Blood, Med 87 mg/dL; Globulin, Blood 4.9 g/dL (2.2-4.0); Glomerular Filtration Rate >60 (60-); Glucose, Blood 99 mg/dL (70-99); Sodium, Blood 139 mmol/L (136-145)
[2022-03-01 06:19] LABS: Salicylate 4.3 mg/dL (2.8-20.0)
[2022-03-01 06:20] LABS: Acetaminophen, Random <2.0 ug/mL (10.0-30.0)
[2022-03-01 09:07] LABS: Influenza A, PCR NEGATIVE (NEGATIVE); Influenza B, PCR NEGATIVE (NEGATIVE); Resp Syncytial Virus, PCR NEGATIVE (NEGATIVE); SARS-Cov-2 (COVID-19) PCR, MMC NEGATIVE (NEGATIVE)
[2022-03-01 10:30] LABS: Source, Urine Clean Catch
[2022-03-01 10:40] LABS: Bilirubin, Urine Neg (Neg); Blood, Urine 2+ (Neg); Glucose Qualitative, Urine Neg (Neg); Ketones, Urine Neg (Neg); Leukocyte Esterase, Urine Neg (Neg); Nitrite, Urine Neg (Neg); Protein, Urine 2+ (Neg); Specific Gravity, Urine 1.025 (1.003-1.022); Urobilinogen, Urine NORM (Normal)
[2022-03-01 11:03] LABS: U Amphetamine Screen Not Detected; U Barbituate Screen Not Detected; U Methamphetamine Screen Not Detected
[2022-03-01 11:04] LABS: U Benzodiazapine Screen DETECTED; U Buprenorphine Screen Not Detected; U Cannabinoids Screen Not Detected; U Cocaine Screen Not Detected; U Methadone Screen Not Detected; U Opiates Screen Not Detected; U Oxycodone Screen Not Detected; U Phencyclidine Screen Not Detected; U Propoxyphene Screen Not Detected
[2022-03-01 11:07] LABS: Appearance, Urine Clear (Clear); Color, Urine Yellow (P-Yellow)
[2022-03-01 11:08] LABS: Bacteria Rare /hpf; Hyaline Casts 0-2 /lpf (0-2); Mucus Light (0-Heavy); Red Blood Cells, Urine 0-2 /hpf (0-2); Squamous Epithelial Cells Rare /hpf (Few); White Blood Cells, Urine 0-2 /hpf (0-5)
== END 2022-03-01 19:56 ==
LOC: ER 03:16 → EOR 03:18
PROVIDERS: Student in an Organized Health Care Education/Training Program; ADMIT Emergency Medicine
DX: F33.9 Major depressive disorder, recurrent, unspecified (principal); F10.239 Alcohol dependence with withdrawal, unspecified; I10 Essential (primary) hypertension; J43.9 Emphysema, unspecified; F17.210 Nicotine dependence, cigarettes, uncomplicated; Z88.8 Allergy status to other drugs, medicaments and biological substances; Z88.6 Allergy status to analgesic agent; Z20.822 Contact with and (suspected) exposure to COVID-19; Z59.00 Homelessness unspecified
CPT/HCPCS: 0241U; 36415; 71045; 80053; 81001; 85025; 94640; 94664; A9270; G0480; J2060; J2405

== ENCOUNTER 2022-04-05 17:06 | Emergency (ER) | payer OTHER ==
[~2022-04-05] VITALS: Ht 182.9 cm; Wt 81.7 kg
[2022-04-05 19:00] LABS: BASOPHILS ABSOLUTE AUTO 0.11 K/mm3 (0.00-0.23); BASOPHILS PERCENT AUTO 1 % (0-2); EOSINOPHILS ABSOLUTE AUTO 0.14 K/mm3 (0.00-0.68); EOSINOPHILS PERCENT AUTO 2 % (0-6); Hematocrit 43.6 % (37.0-53.0); Hemoglobin 14.2 g/dL (13.5-17.5); IMMATURE GRAN ABSOLUTE AUTO 0.01 K/mm3 (0.00-0.10); IMMATURE GRAN PERCENT AUTO 0 % (0-1); LYMPHOCYTES ABSOLUTE AUTO 2.18 K/mm3 (0.84-5.20); LYMPHOCYTES PERCENT AUTO 28 % (21-46); MONOCYTES ABSOLUTE AUTO 0.68 K/mm3 (0.16-1.47); MONOCYTES PERCENT AUTO 9 % (4-13); Mean Corpuscular HGB 28.3 pg (26.0-34.0); Mean Corpuscular HGB Conc 32.6 g/dL (31.5-36.5); Mean Corpuscular Volume 87 fL (80-100); NEUTROPHILS ABSOLUTE AUTO 4.57 K/mm3 (1.96-9.15); NEUTROPHILS PERCENT AUTO 60 % (41-73); Platelet Count 311 K/mm3 (150-400); RDW Coefficient Variation 16.1 % (11.7-14.2); Red Blood Cell Count 5.01 M/mm3 (4.30-5.90); White Blood Cell Count 7.69 K/mm3 (4.00-11.30)
[2022-04-05 19:20] LABS: Alanine Aminotransfer (ALT/SGP 18 U/L (12-78); Albumin, Blood 3.5 g/dL (3.4-5.0); Albumin/Globulin Ratio 0.7 (0.8-1.8); Alk Phos 78 U/L (50-136); Anion Gap 8 mmol/L (6-16); Aspartate Aminotrans (AST/SGOT 27 U/L (12-37); Bilirubin, Total 0.3 mg/dL (0.1-1.0); Blood Urea Nitrogen 6 mg/dL (8-24); Bun/Creatinine Ratio 13.4 (12.0-20.0); CO2, Blood 24 mmol/L (21-32); Calcium, Blood 8.7 mg/dL (8.5-10.1); Chloride, Blood 105 mmol/L (98-108); Creatinine, Blood 0.45 mg/dL (0.60-1.20); Ethanol (Alcohol), Blood, Med 173 mg/dL; Globulin, Blood 4.9 g/dL (2.2-4.0); Glomerular Filtration Rate >60 (60-); Glucose, Blood 81 mg/dL (70-99); Potassium, Blood 3.9 mmol/L (3.5-5.5); Sodium, Blood 137 mmol/L (136-145); Total Protein, Blood 8.4 g/dL (6.4-8.2)
[2022-04-05 20:53] LABS: International Normalized Ratio 1.03; Prothrombin Time Results 10.8 Sec (9.7-11.5)
[2022-04-05] MEDS ORDERED: NAPR500 PO (20:55)
[2022-04-05] MEDS ORDERED: LIDO700A20 TOP (20:55)
== END 2022-04-05 21:58 | disposition home or self-care (01) ==
LOC: ER 17:06
PROVIDERS: Student in an Organized Health Care Education/Training Program
DX: S09.90XA Unspecified injury of head, initial encounter (principal); S39.012A Strain of muscle, fascia and tendon of lower back, initial encounter; S13.9XXA Sprain of joints and ligaments of unspecified parts of neck, initial encounter; S50.02XA Contusion of left elbow, initial encounter; S80.02XA Contusion of left knee, initial encounter; F10.129 Alcohol abuse with intoxication, unspecified; J44.9 Chronic obstructive pulmonary disease, unspecified; I10 Essential (primary) hypertension; F17.210 Nicotine dependence, cigarettes, uncomplicated; S29.012A Strain of muscle and tendon of back wall of thorax, initial encounter; V03.90XA Pedestrian on foot injured in collision with car, pick-up truck or van, unspecified whether traffic or nontraffic accident, initial encounter; Y92.410 Unspecified street and highway as the place of occurrence of the external cause
CPT/HCPCS: 36415; 70450; 71260; 72125; 73070; 74177; 80053; 85025; 85610; A9270; G0480; J1885; Q9967

== ENCOUNTER 2022-04-13 13:37 | Emergency (ER) | payer OTHER ==
[~2022-04-13] VITALS: Ht 182.9 cm; Wt 87.5 kg
[~2022-04-13 13:37] MED LIST changes: +LIDO700A20 TOP; +NAPR500 PO
[2022-04-13] MEDS ORDERED: LISINOPRIL PO (17:02)
[2022-04-13] MEDS ORDERED: Ventolin/Prove6.7 GM INH (21:08)
[2022-04-13] MEDS ORDERED: MIRT15 PO (21:08)
[2022-04-13] MEDS ORDERED: DEPAKOTE ER500 M2 PO (21:08)
[2022-04-13] MEDS ORDERED: Prozac20 MG PO (21:09)
[2022-04-13] MEDS ORDERED: QUETIAPINE FUMA25 MG PO (21:09)
[2022-04-13] MEDS ORDERED: LISI20 PO (21:10)
[2022-04-13] MEDS ORDERED: PRAZOSIN HCL1 M2 PO (21:10)
[2022-04-13] MEDS ORDERED: ACYC200 PO (22:34)
[2022-04-13] MEDS ORDERED: ASPI81CH PO (22:35)
[2022-04-13] MEDS ORDERED: DOCU100 PO (22:36)
[2022-04-13] MEDS ORDERED: HYDCHL12.5 PO (22:37)
[2022-04-13] MEDS ORDERED: IBUP600 PO (22:37)
[2022-04-13] MEDS ORDERED: LIDO700A20 TOP (22:38)
[2022-04-13] MEDS ORDERED: LACT PO (22:38)
[2022-04-13] MEDS ORDERED: MULVITA PO (22:39)
[2022-04-13] MEDS ORDERED: METSALMENC TOP (22:39)
[2022-04-13] MEDS ORDERED: NARCAN4 M1 (22:41)
[2022-04-13] MEDS ORDERED: ALL DAY RELIEF220 MG PO (22:42)
[2022-04-13] MEDS ORDERED: NICO21TP TOP (22:42)
[2022-04-13] MEDS ORDERED: PRED FORTE5 M1 LEFTEYE (22:43)
[2022-04-13] MEDS ORDERED: NICO2 PO (22:43)
[2022-04-13] MEDS ORDERED: Imitrex100 MG PO (22:45)
[2022-04-13] MEDS ORDERED: TAMS.4ER PO (22:45)
[2022-04-13] MEDS ORDERED: Vitamin B Comple1 EA PO (22:46)
== END 2022-04-13 15:52 | disposition home or self-care (01) ==
LOC: ER 13:37
DX: S01.81XA Laceration without foreign body of other part of head, initial encounter (principal); M25.561 Pain in right knee; M25.562 Pain in left knee; W22.8XXA Striking against or struck by other objects, initial encounter; Z88.8 Allergy status to other drugs, medicaments and biological substances; Z79.899 Other long term (current) drug therapy; J43.9 Emphysema, unspecified; I10 Essential (primary) hypertension; G40.909 Epilepsy, unspecified, not intractable, without status epilepticus; F17.210 Nicotine dependence, cigarettes, uncomplicated
CPT/HCPCS: 70450; 72125; 73562-LT; 73562-RT; 99284-25; A9270

== ENCOUNTER 2022-04-13 16:37 | Inpatient (IN) | payer OTHER ==
[~2022-04-13] VITALS: Ht 182.9 cm; Wt 80.4 kg
[2022-04-13 16:58] LABS: BASOPHILS ABSOLUTE AUTO 0.01 K/mm3 (0.00-0.23); BASOPHILS PERCENT AUTO 0 % (0-2); EOSINOPHILS PERCENT AUTO 0 % (0-6); Hematocrit 34.5 % (37.0-53.0); Hemoglobin 11.5 g/dL (13.5-17.5); IMMATURE GRAN ABSOLUTE AUTO 0.04 K/mm3 (0.00-0.10); IMMATURE GRAN PERCENT AUTO 0 % (0-1); LYMPHOCYTES ABSOLUTE AUTO 0.49 K/mm3 (0.84-5.20); LYMPHOCYTES PERCENT AUTO 3 % (21-46); MONOCYTES ABSOLUTE AUTO 0.94 K/mm3 (0.16-1.47); MONOCYTES PERCENT AUTO 6 % (4-13); Mean Corpuscular HGB 28.8 pg (26.0-34.0); Mean Corpuscular HGB Conc 33.3 g/dL (31.5-36.5); Mean Corpuscular Volume 86 fL (80-100); Mean Platelet Volume 10.6 fL (9.1-12.4); NEUTROPHILS ABSOLUTE AUTO 13.68 K/mm3 (1.96-9.15); NEUTROPHILS PERCENT AUTO 90 % (41-73); Platelet Count 260 K/mm3 (150-400); RDW Standard Deviation 51.1 fL (35.1-46.3); White Blood Cell Count 15.16 K/mm3 (4.00-11.30)
[2022-04-13] MEDS ORDERED: LISINOPRIL PO (17:02)
[2022-04-13 17:05] LABS: Alanine Aminotransfer (ALT/SGP 113 U/L (12-78); Albumin, Blood 3.3 g/dL (3.4-5.0); Albumin/Globulin Ratio 0.8 (0.8-1.8); Alk Phos 83 U/L (50-136); Anion Gap 11 mmol/L (6-16); Aspartate Aminotrans (AST/SGOT 474 U/L (12-37); Bilirubin, Total 1.1 mg/dL (0.1-1.0); Blood Urea Nitrogen 18 mg/dL (8-24); Bun/Creatinine Ratio 10.1 (12.0-20.0); CO2, Blood 21 mmol/L (21-32); Calcium, Blood 8.5 mg/dL (8.5-10.1); Chloride, Blood 93 mmol/L (98-108); Creatinine, Blood 1.78 mg/dL (0.60-1.20); Ethanol (Alcohol), Blood, Med <3 mg/dL; Glomerular Filtration Rate 42 (60-); Glucose, Blood 100 mg/dL (70-99); Potassium, Blood 4.5 mmol/L (3.5-5.5); Sodium, Blood 125 mmol/L (136-145); Total Protein, Blood 7.3 g/dL (6.4-8.2)
[2022-04-13 18:25] LABS: Influenza A, PCR NEGATIVE (NEGATIVE); Influenza B, PCR NEGATIVE (NEGATIVE); Resp Syncytial Virus, PCR NEGATIVE (NEGATIVE)
[2022-04-13 18:36] LABS: SARS-Cov-2 (COVID-19) PCR, MMC POSITIVE (NEGATIVE)
[2022-04-13] MEDS ORDERED: DEPAKOTE ER500 M2 PO (21:08)
[2022-04-13] MEDS ORDERED: MIRT15 PO (21:08)
[2022-04-13] MEDS ORDERED: Ventolin/Prove6.7 GM INH (21:08)
[2022-04-13] MEDS ORDERED: Prozac20 MG PO (21:09)
[2022-04-13] MEDS ORDERED: QUETIAPINE FUMA25 MG PO (21:09)
[2022-04-13] MEDS ORDERED: LISI20 PO (21:10)
[2022-04-13] MEDS ORDERED: PRAZOSIN HCL1 M2 PO (21:10)
[2022-04-13] MEDS ORDERED: ACYC200 PO (22:34)
[2022-04-13] MEDS ORDERED: ASPI81CH PO (22:35)
[2022-04-13] MEDS ORDERED: DOCU100 PO (22:36)
[2022-04-13] MEDS ORDERED: IBUP600 PO (22:37)
[2022-04-13] MEDS ORDERED: HYDCHL12.5 PO (22:37)
[2022-04-13] MEDS ORDERED: LACT PO (22:38)
[2022-04-13] MEDS ORDERED: LIDO700A20 TOP (22:38)
[2022-04-13] MEDS ORDERED: MULVITA PO (22:39)
[2022-04-13] MEDS ORDERED: METSALMENC TOP (22:39)
[2022-04-13] MEDS ORDERED: NARCAN4 M1 (22:41)
[2022-04-13] MEDS ORDERED: NICO21TP TOP (22:42)
[2022-04-13] MEDS ORDERED: ALL DAY RELIEF220 MG PO (22:42)
[2022-04-13] MEDS ORDERED: PRED FORTE5 M1 LEFTEYE (22:43)
[2022-04-13] MEDS ORDERED: NICO2 PO (22:43)
[2022-04-13] MEDS ORDERED: TAMS.4ER PO (22:45)
[2022-04-13] MEDS ORDERED: Imitrex100 MG PO (22:45)
[2022-04-13] MEDS ORDERED: Vitamin B Comple1 EA PO (22:46)
--- NOTE | 2022-04-13 23:19 | NUR ---
REPORT RECIEVED FROM LEANDRA CASTILLO IN ED. PT ARRIVED ON FLOOR AT 2009. AFTER MULTIPLE ATTEMPTS TO GET OUT OF BED, ORDERS RECIEVED FOR VEST. ATTEMPTED TO ASSIST PATIENT TO VOID. PT UNABLE TO SIT UP AND FOLLOW DIRECTIONS.
--- NOTE | 2022-04-14 04:27 | NUR ---
CIWA 11-15, PT RECIEVEING ATIVAN 2MG ABOUT EVERY 2-3 HOURS. PT UNABLE TO VOID, BLADDER SCAN SHOWED GREATER THAN 400ML IN BLADDER, MD CALLED FOR ORDER TO STRAIGHT CATH. 500 DARK DENAE URINE, PT TOLERATED STRAIGHT CATH. DURING AN ASSESSMENT PATIENT WAS NOTED TO HAVE INCREASED SWELLING AND BRUISING TO LEFT HIP, ALSO WARM TO TOUCH. PT REPORTS PAIN IN THE AREA UPON PALPATION. PLACED IMAGING ORDER.
[2022-04-14 05:23] LABS: BASOPHILS ABSOLUTE AUTO 0.03 K/mm3 (0.00-0.23); BASOPHILS PERCENT AUTO 0 % (0-2); EOSINOPHILS ABSOLUTE AUTO 0.02 K/mm3 (0.00-0.68); EOSINOPHILS PERCENT AUTO 0 % (0-6); Hematocrit 29.5 % (37.0-53.0); Hemoglobin 9.7 g/dL (13.5-17.5); IMMATURE GRAN ABSOLUTE AUTO 0.06 K/mm3 (0.00-0.10); IMMATURE GRAN PERCENT AUTO 0 % (0-1); LYMPHOCYTES ABSOLUTE AUTO 1.15 K/mm3 (0.84-5.20); LYMPHOCYTES PERCENT AUTO 9 % (21-46); MONOCYTES PERCENT AUTO 7 % (4-13); Mean Corpuscular HGB Conc 32.9 g/dL (31.5-36.5); Mean Corpuscular Volume 85 fL (80-100); Mean Platelet Volume 9.9 fL (9.1-12.4); NEUTROPHILS PERCENT AUTO 83 % (41-73); Platelet Count 203 K/mm3 (150-400); RDW Coefficient Variation 15.9 % (11.7-14.2); RDW Standard Deviation 49.1 fL (35.1-46.3); Red Blood Cell Count 3.47 M/mm3 (4.30-5.90); White Blood Cell Count 13.56 K/mm3 (4.00-11.30)
[2022-04-14 06:02] LABS: Albumin, Blood 3.1 g/dL (3.4-5.0); Albumin/Globulin Ratio 0.9 (0.8-1.8); Bilirubin, Total 1.1 mg/dL (0.1-1.0); Bun/Creatinine Ratio 11.3 (12.0-20.0); Calcium, Blood 7.9 mg/dL (8.5-10.1); Creatinine, Blood 2.56 mg/dL (0.60-1.20); Globulin, Blood 3.4 g/dL (2.2-4.0); Potassium, Blood 3.9 mmol/L (3.5-5.5); Total Protein, Blood 6.5 g/dL (6.4-8.2); Valproic Acid <3.0 ug/mL (50.0-100.0)
[2022-04-14 14:11] LABS: Calcium, Blood 7.9 mg/dL (8.5-10.1); Creatinine, Blood 2.31 mg/dL (0.60-1.20); Potassium, Blood 3.8 mmol/L (3.5-5.5)
[2022-04-14 14:44] LABS: Percent Saturation 12.8 % (20.0-50.0)
--- NOTE | 2022-04-14 15:46 | NUR ---
PATIENT IS LETHARGIC, ORIENTATION UNKNOWN. PT ON BEDREST, POSIE ON AND CAMERA IN USE, DUE TO AMS. COOPERATING WITH MEDICATION AND CARE. PT IS RETAINING URINE, BADDERSCANS BEING DONE, AND STRAIGHT CATHING NEEDED. PT HAS MANY WOUNDS AND BRUSING FROM PREVIOUS FALLS. CALL LIGHT IN REACH, PT DOESN'T USE IT.
[2022-04-15 04:40] LABS: BASOPHILS ABSOLUTE AUTO 0.04 K/mm3 (0.00-0.23); BASOPHILS PERCENT AUTO 0 % (0-2); EOSINOPHILS ABSOLUTE AUTO 0.28 K/mm3 (0.00-0.68); EOSINOPHILS PERCENT AUTO 3 % (0-6); Hematocrit 27.8 % (37.0-53.0); IMMATURE GRAN ABSOLUTE AUTO 0.03 K/mm3 (0.00-0.10); IMMATURE GRAN PERCENT AUTO 0 % (0-1); LYMPHOCYTES ABSOLUTE AUTO 0.78 K/mm3 (0.84-5.20); LYMPHOCYTES PERCENT AUTO 7 % (21-46); MONOCYTES ABSOLUTE AUTO 0.82 K/mm3 (0.16-1.47); MONOCYTES PERCENT AUTO 7 % (4-13); Mean Corpuscular HGB Conc 32.4 g/dL (31.5-36.5); Mean Corpuscular Volume 87 fL (80-100); Mean Platelet Volume 9.4 fL (9.1-12.4); NEUTROPHILS ABSOLUTE AUTO 9.11 K/mm3 (1.96-9.15); NEUTROPHILS PERCENT AUTO 82 % (41-73); Platelet Count 187 K/mm3 (150-400); RDW Standard Deviation 50.5 fL (35.1-46.3); Red Blood Cell Count 3.21 M/mm3 (4.30-5.90); White Blood Cell Count 11.06 K/mm3 (4.00-11.30)
--- NOTE | 2022-04-15 04:51 | NUR ---
CIWA SCORES TRENDING DOWN, PATIENT REQUIREING LESS MEDICATION. PT MORE LUCID BUT STILL CONFUSED TO EVENTS THAT LED HIM HERE. RESTRAINTS DC, PT HAS NOT ATTEMPTED TO GET OUT OF BED. PT WAS ABLE TO VOID 250 ML BUT WAS UNABLE TO VOID WITH 650ML IN HIS BLADDER. PT WAS STRAIGHT CATHED AND RETRIEVED 775ML OF DARK DENAE URINE. PT REPORTED SORE THROAT DURING THE NIGHT AND BEGAN HAVING SNORING RESPIRATIONS WHILE SLEEPING. LUNG SOUNDS HAVE BECOME COARSE WITH NO DECREASE IN OXYGEN SATURATION.
[2022-04-15 04:57] LABS: Albumin, Blood 2.6 g/dL (3.4-5.0); Anion Gap 8 mmol/L (6-16); Blood Urea Nitrogen 25 mg/dL (8-24); Bun/Creatinine Ratio 23.6 (12.0-20.0); CO2, Blood 24 mmol/L (21-32); Calcium, Blood 7.5 mg/dL (8.5-10.1); Chloride, Blood 103 mmol/L (98-108); Creatinine, Blood 1.06 mg/dL (0.60-1.20); Glomerular Filtration Rate 79 (60-); Glucose, Blood 97 mg/dL (70-99); Magnesium, Blood 2.7 mg/dL (1.6-2.4); Phosphorus, Blood 3.4 mg/dL (2.5-4.9); Potassium, Blood 3.9 mmol/L (3.5-5.5); Sodium, Blood 135 mmol/L (136-145)
--- NOTE | 2022-04-15 16:24 | NUR ---
DAYSHIFT SUMMARY Pt Alert, disoriented time, place, situation. Worked w/ therapy today, 1x SBA FWW for transfers. Pt impulsive gets up w/o help. Pt having trouble with coordination, needing assitance with feeding. Lungs wheezing/diminished, tachypnea noted. Urinary retention, bladder scanned 388mL, straight cath 550 urine output. Pt has skin tears, covered with bandages. Vitals stable.
[2022-04-16 04:38] LABS: BASOPHILS ABSOLUTE AUTO 0.03 K/mm3 (0.00-0.23); BASOPHILS PERCENT AUTO 0 % (0-2); EOSINOPHILS ABSOLUTE AUTO 0.41 K/mm3 (0.00-0.68); EOSINOPHILS PERCENT AUTO 5 % (0-6); Hematocrit 27.2 % (37.0-53.0); IMMATURE GRAN ABSOLUTE AUTO 0.03 K/mm3 (0.00-0.10); IMMATURE GRAN PERCENT AUTO 0 % (0-1); LYMPHOCYTES PERCENT AUTO 11 % (21-46); MONOCYTES ABSOLUTE AUTO 0.78 K/mm3 (0.16-1.47); MONOCYTES PERCENT AUTO 10 % (4-13); Mean Corpuscular HGB 28.9 pg (26.0-34.0); Mean Corpuscular HGB Conc 33.1 g/dL (31.5-36.5); Mean Corpuscular Volume 88 fL (80-100); Mean Platelet Volume 9.6 fL (9.1-12.4); NEUTROPHILS ABSOLUTE AUTO 5.96 K/mm3 (1.96-9.15); NEUTROPHILS PERCENT AUTO 73 % (41-73); Platelet Count 207 K/mm3 (150-400); RDW Coefficient Variation 16.4 % (11.7-14.2); RDW Standard Deviation 52.2 fL (35.1-46.3); Red Blood Cell Count 3.11 M/mm3 (4.30-5.90); White Blood Cell Count 8.11 K/mm3 (4.00-11.30)
--- NOTE | 2022-04-16 04:52 | NUR ---
SHIFT SUMMARY 61 YR M ADMITTED ON04/13/22. FULL CODE. NO ACUTE CHANGES THIS SHIFT. PT IS CONFUSED AND DISORIENTED. HE GOT OUT OF BED TO GO TO THE BATHROOM AND HE WAS VERY UNSTABLE AND WOBBLY. HE IS AT LEAST A 1 PERSON ASSIST. HE WAS ABLE TO MAKE IT TO THE BATHROOM BUT HE DID HAVE AN INCONTINENT OEPISODE OF STOOL EARLY IN THE SHIFT. PT HAS VOIDED AT LEAST TWICE THIS SHIFT SO NO BLADDER SCANS HAVE BEEN DONE.
[2022-04-16 04:59] LABS: Albumin, Blood 2.5 g/dL (3.4-5.0); Anion Gap 6 mmol/L (6-16); Blood Urea Nitrogen 22 mg/dL (8-24); Bun/Creatinine Ratio 32.1 (12.0-20.0); CO2, Blood 28 mmol/L (21-32); Calcium, Blood 8.1 mg/dL (8.5-10.1); Chloride, Blood 102 mmol/L (98-108); Creatinine, Blood 0.69 mg/dL (0.60-1.20); Glomerular Filtration Rate 104 (60-); Glucose, Blood 111 mg/dL (70-99); Phosphorus, Blood 3.3 mg/dL (2.5-4.9); Potassium, Blood 3.8 mmol/L (3.5-5.5); Sodium, Blood 136 mmol/L (136-145)
--- NOTE | 2022-04-16 16:20 | NUR ---
I READ AND DISCUSSED THE CHARTING FOR THIS PATIENT BY FLAVIA CASTILLO. I AM IN AGREEMENT WITH HER CHARTING AFTER DOING MY OWN ASSESSMENT.
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
--- NOTE | 2022-04-17 03:59 | NUR ---
SHIFT SUMMARY 61 YR M ADMITTED ON 04/13/22. FULL CODE. NO ACUTE CHANGES THIS SHIFT. PT OCCASIONALLY SITS UP TO THE SIDE OF THE BED WHICH SETS THE BED ALARM OFF. HE NEEDS TO BE REMINDED TO USE THE CALL LIGHT WHEN HE NEEDS TO USE THE BATHROOM. HE IS PLEASANT AND COOPERATIVE AND SEEMED MORE LUCID THIS SHIFT THAN THE LAST SHIFT.
--- NOTE | 2022-04-17 13:15 | NUR ---
PATIENT COMPLAINS OF LEFT ARM AND SHOULDER PAIN. HE REPORTS UNABLE TO LIFT LEFT ARM. SAYS HE FEELS LIKE IT IS DISLOCATED. IS CALLED AND SHE SAYS SHE IS AWARE AND THAT PATIENT HAS A LEFT FROZEN SHOULDER FROM YEARS AGO. WILL CONTINUE TO MONITOR THIS PATIENT CLOSELY WHILE HE REMAINS IN COVID ISOLATION AND UNTIL REPORT TO NOC SHIFT RN.
--- NOTE | 2022-04-17 15:15 | NUR ---
I HAVE READ THE DOCUMENTATION CHARTING DONE BY FLAVIA FURNACE COOLER AND AM IN AGREEMENT WITH IT.
--- NOTE | 2022-04-17 17:27 | NUR ---
SHIFT SUMMARY NO ACUTE CHANGES THIS SHIFT. PT IS COVID POSITIVE AND PRECAUTIONS ARE IN PLACE. PT IS ALERT AND ORIENTED. HE HAS BEEN SITTING UP IN THE RECLINER ALL DAY, WATCHING TELEVISION. HE C/O LEFT SHOULDER PAIN SO AN ICE PACK WAS RETRIEVED AND THE PT IS SATISFIED WITH THE INTERVENTION. HE IS A 1 ASSIST WITH A WALKER. HE IS ON TELE WITH NSR OF 87. HE HAS BRUISES, SCRAPES, AND CUTS T/O BODY. HIS LEFT KNEE HAS A HEALING WOUND, A MEPALEX WAS APPLIED TODAY. PT HAS TO CONSTANTLY BE REMINDED TO USE THE CALL LIGHT TO ASK FOR ASSISTANCE WHEN TRANSFERRING. HE IS A FULL CODE. WILL CONTINUE TO MONITOR AND ASSESS UNTIL NOC SHIFT ARRIVES.
--- NOTE | 2022-04-18 05:18 | NUR ---
SHIFT SUMMARY NOC: PT SLEPT IN BED ALL NIGHT. PT PERIODICALLY TAKEN TO BATHROOM, PT VERY WOBBLY ON FEET. PT REPORTS PAIN TO LEFT SHOULDER. CALLED. NEW ORDERS FOR TYLENOL PRN. TYLENOL GIVEN WITH POSITIVE EFFECT. PT STATES NO SOB OR N/V.
--- NOTE | 2022-04-18 18:01 | NUR ---
SHIFT SUMMARY PT AxOx4. PLEASANT AND COOPERATIVE WITH CARE. PT REPORTS L SHOULDER PAIN THIS SHIFT. MEDICATED PER EMAR WITH REPORTED POOR PAIN COVERAGE. PT USED HOT PAD ON SHOULDER. PT HAD XRAY OF L SHOULDER TODAY. PER TELE, TELE RUNNING NORMAL SINUS AT 90. PT WORKED WITH PHYSICAL AND OCCUPATIONAL THERAPY TODAY. PT REMAINS SBA WITH GB. WOUND CARE/CLEANED ON HEAD & FACE TODAY- WOUNDS SCABBED OVER AND OPEN TO AIR. PT REPORTED DYSPHAGIA AND FREQUENT CHOKING WITH MEALS. SOFTER/BROKEN DOWN MEALS OFFERED TO PATIENT, BUT HE DECLINED. VITALS REVIEWED. SAFE DISCHARGE PLAN STILL PENDING AT THIS TIME.
--- NOTE | 2022-04-19 06:39 | NUR ---
PT HAVING CHEST PAIN THIS MORNING. PT STATES BURNING TO LEFT CHEST, NOT RADIATING TO EXTREMITIES. VITAL SIGNS STABLE. PT WAS JUST BACK TO BED FROM HAVING BOWEL MOVEMENT. MD UPDATED. STAT EKG SHOWED NORMAL SINUS RHYTHM. SERIAL TROPONINS ORDERED, PENDING. NITROGLYCERIN SL 0.4 MG GIVEN. PT REPORTS MILD RELIEF OF CHEST PAIN AFTER NITRO. WILL CONTINUE TO MONITOR.
--- NOTE | 2022-04-19 18:55 | NUR ---
SHIFT SUMMARY: PT. A/O X4. PLEASANT AND COOPERATIVE WITH CARE. PT REPORTS LT SHOULDER PAIN. PT REPORTED HAVING A HEADACHE THIS MORNING. MEDICATED WITH TYLENOL, BUT NO RELIEF. PT ABLE TO REST AND HEADACHE RESOLVED. PT DID NOT REPORT ANY CP THIS SHIFT. PATIENT SHOWERED TODAY. WORKED WITH PT AND OT. ABLE TO AMBULATE WELL DOWN HALLWAY. SBA WITH GB. RESTING COMFORTABLY IN BED NOW.
[2022-04-20 04:57] LABS: Bun/Creatinine Ratio 26.9 (12.0-20.0); Calcium, Blood 9.1 mg/dL (8.5-10.1); Creatinine, Blood 0.48 mg/dL (0.60-1.20); Potassium, Blood 4.2 mmol/L (3.5-5.5)
--- NOTE | 2022-04-20 05:23 | NUR ---
SHIFT SUMMARY NOC: PT SLEPT MOST OF SHIFT. PT ONLY UP TO USE RESTROOM. NO ADVERSE EVENTS.
[2022-04-20] MEDS ORDERED: Prednisone10 MG PO (15:13)
[2022-04-20] MEDS ORDERED: FERSU300 PO (15:13)
[2022-04-20] MEDS ORDERED: FOLI1 PO (15:17)
--- NOTE | 2022-04-20 16:37 | NUR ---
DISCHARGE SUMMARY: PT A/OX4 IND AT TIME OF DISCHARGE. DISCUSSED DISCHARGE INSTRUCTIONS AND MEDICATIONS WITH PT. PT VU. PT ADVISED TO CALL AND [facility] WERE UNABLE TO MAKE APPOINTMENT TODAY DUE TO PT NOT ESTABLISHED ANY LONGER WITH PROVIDER. PT VU. PT ESCORTED TO RIDE. PT AMBULATED TO VEHICLE WITHOUT ANY SIGNS OF UNSTEADY GAIT.
== END 2022-04-20 16:14 | disposition home health service (06) | DRG 896 ==
LOC: ER 16:37 → MEDS 16:38
PROVIDERS: Emergency Medicine; Internal Medicine; ADMIT Internal Medicine
PROC: HZ2ZZZZ Detoxification Services for Substance Abuse Treatment (ICD-10-PCS; principal; 2022-04-13)
PROC: 8E0ZXY6 Isolation (ICD-10-PCS; 2022-04-13)
DX: F10.239 Alcohol dependence with withdrawal, unspecified (principal); U07.1 COVID-19; N17.9 Acute kidney failure, unspecified; E87.1 Hypo-osmolality and hyponatremia; E86.0 Dehydration; S01.91XA Laceration without foreign body of unspecified part of head, initial encounter; R33.9 Retention of urine, unspecified; D63.1 Anemia in chronic kidney disease; I10 Essential (primary) hypertension; M25.512 Pain in left shoulder; G40.909 Epilepsy, unspecified, not intractable, without status epilepticus; F17.210 Nicotine dependence, cigarettes, uncomplicated; J43.9 Emphysema, unspecified; S09.90XA Unspecified injury of head, initial encounter; Y90.0 Blood alcohol level of less than 20 mg/100 ml; Z86.73 Personal history of transient ischemic attack (TIA), and cerebral infarction without residual deficits; Z98.890 Other specified postprocedural states; Z90.89 Acquired absence of other organs; Z88.8 Allergy status to other drugs, medicaments and biological substances; Z79.899 Other long term (current) drug therapy; W18.30XA Fall on same level, unspecified, initial encounter; Y92.481 Parking lot as the place of occurrence of the external cause
CPT/HCPCS: 0241U; 36415; 70450; 71045; 72125; 73030; 73523; 80048; 80053; 80069; 80164; 82607; 82728; 82746; 83540; 83550; 83735; 84484; 85025; 93005; 93010; 94640; 94664; 94760; 96365; 96366; 96375; 97110; 97116; 97162; 97166; 97530; 97535; 99285-25; A9270; G0480; J1650; J1885; J2060; J2405; J3411; J3475; J7030; J7042; J7512

== ENCOUNTER 2022-04-21 00:11 | Emergency (ER) | payer OTHER ==
[~2022-04-21] VITALS: Ht 182.9 cm; Wt 84.8 kg
[~2022-04-21 00:11] MED LIST changes: +ACYC200 PO; +ALL DAY RELIEF220 MG PO; +DEPAKOTE ER500 M2 PO; +DOCU100 PO; +FERSU300 PO; +HYDCHL12.5 PO; +IBUP600 PO; +Imitrex100 MG PO; +LACT PO; +LISINOPRIL PO; +METSALMENC TOP; +MIRT15 PO; +NARCAN4 M1; +NICO2 PO; +NICO21TP TOP; +PRAZOSIN HCL1 M2 PO; +PRED FORTE5 M1 LEFTEYE; +Prednisone10 MG PO; +Prozac20 MG PO; +QUETIAPINE FUMA25 MG PO; +Ventolin/Prove6.7 GM INH; +Vitamin B Comple1 EA PO
[2022-04-21 00:55] LABS: Albumin, Blood 3.4 g/dL (3.4-5.0); Albumin/Globulin Ratio 0.8 (0.8-1.8); Bilirubin, Total 0.5 mg/dL (0.1-1.0); Bun/Creatinine Ratio 24.7 (12.0-20.0); Calcium, Blood 8.7 mg/dL (8.5-10.1); Creatinine, Blood 0.45 mg/dL (0.60-1.20); Potassium, Blood 3.8 mmol/L (3.5-5.5); Total Protein, Blood 7.4 g/dL (6.4-8.2)
[2022-04-21 00:59] LABS: BASOPHILS ABSOLUTE AUTO 0.04 K/mm3 (0.00-0.23); BASOPHILS PERCENT AUTO 0 % (0-2); EOSINOPHILS ABSOLUTE AUTO 0.26 K/mm3 (0.00-0.68); EOSINOPHILS PERCENT AUTO 3 % (0-6); Hematocrit 27.1 % (37.0-53.0); Hemoglobin 8.9 g/dL (13.5-17.5); Mean Corpuscular HGB 29.2 pg (26.0-34.0); Mean Corpuscular HGB Conc 32.8 g/dL (31.5-36.5); Mean Corpuscular Volume 89 fL (80-100); Mean Platelet Volume 8.9 fL (9.1-12.4); Platelet Count 356 K/mm3 (150-400); RDW Coefficient Variation 18.3 % (11.7-14.2); Red Blood Cell Count 3.05 M/mm3 (4.30-5.90); White Blood Cell Count 9.34 K/mm3 (4.00-11.30)
[2022-04-21 01:01] LABS: IMMATURE GRAN ABSOLUTE AUTO 0.07 K/mm3 (0.00-0.10); IMMATURE GRAN PERCENT AUTO 1 % (0-1); LYMPHOCYTES PERCENT AUTO 21 % (21-46); MONOCYTES ABSOLUTE AUTO 1.33 K/mm3 (0.16-1.47); MONOCYTES PERCENT AUTO 14 % (4-13); NEUTROPHILS ABSOLUTE AUTO 5.64 K/mm3 (1.96-9.15); NEUTROPHILS PERCENT AUTO 61 % (41-73)
== END 2022-04-21 04:38 | disposition home or self-care (01) ==
LOC: ER 00:11
PROVIDERS: Student in an Organized Health Care Education/Training Program
DX: R07.9 Chest pain, unspecified (principal); Z88.8 Allergy status to other drugs, medicaments and biological substances; Z79.899 Other long term (current) drug therapy; Z79.82 Long term (current) use of aspirin; Z79.52 Long term (current) use of systemic steroids; J43.9 Emphysema, unspecified; I10 Essential (primary) hypertension; G40.909 Epilepsy, unspecified, not intractable, without status epilepticus; F17.210 Nicotine dependence, cigarettes, uncomplicated
CPT/HCPCS: 36415; 80053; 84484; 85025; 93005; 93010; 96374; 96375; A9270; J1885; J2270

== ENCOUNTER 2022-05-05 15:35 | Emergency (ER) | payer OTHER ==
[~2022-05-05] VITALS: Ht 182.9 cm; Wt 79.4 kg
[2022-05-05 16:01] LABS: BASOPHILS ABSOLUTE AUTO 0.04 K/mm3 (0.00-0.23); BASOPHILS PERCENT AUTO 1 % (0-2); EOSINOPHILS ABSOLUTE AUTO 0.03 K/mm3 (0.00-0.68); EOSINOPHILS PERCENT AUTO 1 % (0-6); Hematocrit 22.3 % (37.0-53.0); Hemoglobin 7.1 g/dL (13.5-17.5); IMMATURE GRAN ABSOLUTE AUTO 0.01 K/mm3 (0.00-0.10); IMMATURE GRAN PERCENT AUTO 0 % (0-1); LYMPHOCYTES ABSOLUTE AUTO 1.75 K/mm3 (0.84-5.20); LYMPHOCYTES PERCENT AUTO 27 % (21-46); MONOCYTES ABSOLUTE AUTO 0.58 K/mm3 (0.16-1.47); MONOCYTES PERCENT AUTO 9 % (4-13); Mean Corpuscular HGB 30.1 pg (26.0-34.0); Mean Corpuscular HGB Conc 31.8 g/dL (31.5-36.5); Mean Corpuscular Volume 95 fL (80-100); Mean Platelet Volume 9.1 fL (9.1-12.4); NEUTROPHILS PERCENT AUTO 62 % (41-73); Platelet Count 259 K/mm3 (150-400); RDW Coefficient Variation 20.1 % (11.7-14.2); RDW Standard Deviation 69.7 fL (35.1-46.3); Red Blood Cell Count 2.36 M/mm3 (4.30-5.90); White Blood Cell Count 6.41 K/mm3 (4.00-11.30)
[2022-05-05 16:24] LABS: Albumin, Blood 2.9 g/dL (3.4-5.0); Albumin/Globulin Ratio 0.8 (0.8-1.8); Bilirubin, Total 0.4 mg/dL (0.1-1.0); Bun/Creatinine Ratio 11.4 (12.0-20.0); Calcium, Blood 8.1 mg/dL (8.5-10.1); Creatinine, Blood 0.53 mg/dL (0.60-1.20); Globulin, Blood 3.6 g/dL (2.2-4.0); Potassium, Blood 3.8 mmol/L (3.5-5.5); Total Protein, Blood 6.5 g/dL (6.4-8.2)
== END 2022-05-05 18:14 | disposition home or self-care (01) ==
LOC: ER 15:35
PROVIDERS: Emergency Medicine
DX: R07.9 Chest pain, unspecified (principal); R51.9 Headache, unspecified; F17.210 Nicotine dependence, cigarettes, uncomplicated; J43.9 Emphysema, unspecified; I10 Essential (primary) hypertension; G40.909 Epilepsy, unspecified, not intractable, without status epilepticus; Z88.8 Allergy status to other drugs, medicaments and biological substances; Z79.899 Other long term (current) drug therapy; Z79.52 Long term (current) use of systemic steroids
CPT/HCPCS: 71045; 80053; 83690; 84484; 85025; 93005; 93010; 99285-25

== ENCOUNTER → 2022-05-06 | Emergency (ER) | payer OTHER ==
[~2022-05-06] VITALS: Ht 182.9 cm; Wt 86.2 kg
== END ==
LOC: ER 15:32
DX: R07.9 Chest pain, unspecified (principal); F10.139 Alcohol abuse with withdrawal, unspecified; J43.9 Emphysema, unspecified; I10 Essential (primary) hypertension; G40.909 Epilepsy, unspecified, not intractable, without status epilepticus; F17.210 Nicotine dependence, cigarettes, uncomplicated; Z79.52 Long term (current) use of systemic steroids; Z79.899 Other long term (current) drug therapy; Z79.82 Long term (current) use of aspirin; Z88.8 Allergy status to other drugs, medicaments and biological substances
CPT/HCPCS: 93005; 93010; A9270

== ENCOUNTER 2022-05-12 17:54 | Emergency (ER) | payer OTHER ==
[~2022-05-12] VITALS: Ht 182.9 cm; Wt 81.7 kg
[2022-05-12 19:29] LABS: BASOPHILS ABSOLUTE AUTO 0.08 K/mm3 (0.00-0.23); BASOPHILS PERCENT AUTO 1 % (0-2); EOSINOPHILS PERCENT AUTO 2 % (0-6); Hematocrit 28.1 % (37.0-53.0); Hemoglobin 8.6 g/dL (13.5-17.5); IMMATURE GRAN ABSOLUTE AUTO 0.02 K/mm3 (0.00-0.10); IMMATURE GRAN PERCENT AUTO 0 % (0-1); LYMPHOCYTES ABSOLUTE AUTO 1.71 K/mm3 (0.84-5.20); LYMPHOCYTES PERCENT AUTO 28 % (21-46); MONOCYTES ABSOLUTE AUTO 0.63 K/mm3 (0.16-1.47); MONOCYTES PERCENT AUTO 10 % (4-13); Mean Corpuscular HGB 28.4 pg (26.0-34.0); Mean Corpuscular HGB Conc 30.6 g/dL (31.5-36.5); Mean Corpuscular Volume 93 fL (80-100); Mean Platelet Volume 9.1 fL (9.1-12.4); NEUTROPHILS ABSOLUTE AUTO 3.59 K/mm3 (1.96-9.15); NEUTROPHILS PERCENT AUTO 59 % (41-73); Platelet Count 293 K/mm3 (150-400); RDW Coefficient Variation 18.8 % (11.7-14.2); RDW Standard Deviation 65.2 fL (35.1-46.3); Red Blood Cell Count 3.03 M/mm3 (4.30-5.90); White Blood Cell Count 6.13 K/mm3 (4.00-11.30)
[2022-05-12 19:46] LABS: Albumin, Blood 3.1 g/dL (3.4-5.0); Albumin/Globulin Ratio 0.7 (0.8-1.8); Bilirubin, Total 0.2 mg/dL (0.1-1.0); Bun/Creatinine Ratio 13.4 (12.0-20.0); Calcium, Blood 8.2 mg/dL (8.5-10.1); Creatinine, Blood 0.6 mg/dL (0.60-1.20); Globulin, Blood 4.2 g/dL (2.2-4.0); Potassium, Blood 3.9 mmol/L (3.5-5.5); Total Protein, Blood 7.3 g/dL (6.4-8.2)
== END 2022-05-12 23:20 | disposition home or self-care (01) ==
LOC: ER 17:54
PROVIDERS: Physician Assistant
DX: R07.9 Chest pain, unspecified (principal); Z79.899 Other long term (current) drug therapy; Z79.82 Long term (current) use of aspirin; Z88.8 Allergy status to other drugs, medicaments and biological substances; Z86.73 Personal history of transient ischemic attack (TIA), and cerebral infarction without residual deficits; J44.9 Chronic obstructive pulmonary disease, unspecified; I10 Essential (primary) hypertension; F17.210 Nicotine dependence, cigarettes, uncomplicated
CPT/HCPCS: 36415; 71046; 80053; 83690; 83880; 84484; 85025; 93005; 93010; 96374; 96375; 99285-25; A9270; J0780; J1885

== ENCOUNTER 2022-05-13 13:06 | Emergency (ER) | payer OTHER ==
[~2022-05-13] VITALS: Ht 180.3 cm; Wt 83.0 kg
[2022-05-13 15:48] LABS: BASOPHILS ABSOLUTE AUTO 0.06 K/mm3 (0.00-0.23); BASOPHILS PERCENT AUTO 1 % (0-2); EOSINOPHILS ABSOLUTE AUTO 0.04 K/mm3 (0.00-0.68); EOSINOPHILS PERCENT AUTO 1 % (0-6); Hematocrit 25.6 % (37.0-53.0); Hemoglobin 7.9 g/dL (13.5-17.5); IMMATURE GRAN ABSOLUTE AUTO 0.02 K/mm3 (0.00-0.10); IMMATURE GRAN PERCENT AUTO 0 % (0-1); LYMPHOCYTES ABSOLUTE AUTO 1.41 K/mm3 (0.84-5.20); LYMPHOCYTES PERCENT AUTO 24 % (21-46); MONOCYTES ABSOLUTE AUTO 0.69 K/mm3 (0.16-1.47); MONOCYTES PERCENT AUTO 12 % (4-13); Mean Corpuscular HGB 28.3 pg (26.0-34.0); Mean Corpuscular HGB Conc 30.9 g/dL (31.5-36.5); Mean Corpuscular Volume 92 fL (80-100); Mean Platelet Volume 8.8 fL (9.1-12.4); NEUTROPHILS ABSOLUTE AUTO 3.75 K/mm3 (1.96-9.15); NEUTROPHILS PERCENT AUTO 63 % (41-73); Platelet Count 244 K/mm3 (150-400); RDW Coefficient Variation 18.5 % (11.7-14.2); RDW Standard Deviation 62.1 fL (35.1-46.3); Red Blood Cell Count 2.79 M/mm3 (4.30-5.90); White Blood Cell Count 5.97 K/mm3 (4.00-11.30)
[2022-05-13 16:13] LABS: Albumin/Globulin Ratio 0.8 (0.8-1.8); Bilirubin, Total 0.3 mg/dL (0.1-1.0); Bun/Creatinine Ratio 10.6 (12.0-20.0); Calcium, Blood 8.1 mg/dL (8.5-10.1); Creatinine, Blood 0.57 mg/dL (0.60-1.20); Globulin, Blood 3.9 g/dL (2.2-4.0); Potassium, Blood 3.6 mmol/L (3.5-5.5); Total Protein, Blood 6.9 g/dL (6.4-8.2)
[2022-05-13 16:21] LABS: Magnesium, Blood 2.2 mg/dL (1.6-2.4)
[2022-05-13 16:22] LABS: Phosphorus, Blood 3.4 mg/dL (2.5-4.9)
== END 2022-05-13 19:35 | disposition home or self-care (01) ==
LOC: ER 13:06
PROVIDERS: Physician Assistant
DX: R07.89 Other chest pain (principal); M79.602 Pain in left arm; S09.90XA Unspecified injury of head, initial encounter; X58.XXXA Exposure to other specified factors, initial encounter; J43.9 Emphysema, unspecified; I10 Essential (primary) hypertension; F17.210 Nicotine dependence, cigarettes, uncomplicated
CPT/HCPCS: 70450; 80053; 83690; 83735; 84100; 85025; 93005; 93010; 99284-25; J1885

== ENCOUNTER 2022-07-07 13:23 | Inpatient (IN) | payer OTHER ==
[~2022-07-07] VITALS: Ht 182.9 cm; Wt 77.9 kg
[2022-07-07 15:05] LABS: BASOPHILS ABSOLUTE AUTO 0.06 K/mm3 (0.00-0.23); BASOPHILS PERCENT AUTO 0 % (0-2); EOSINOPHILS ABSOLUTE AUTO 0.01 K/mm3 (0.00-0.68); EOSINOPHILS PERCENT AUTO 0 % (0-6); Hematocrit 22.1 % (37.0-53.0); Hemoglobin 7.3 g/dL (13.5-17.5); IMMATURE GRAN ABSOLUTE AUTO 0.06 K/mm3 (0.00-0.10); IMMATURE GRAN PERCENT AUTO 0 % (0-1); LYMPHOCYTES PERCENT AUTO 11 % (21-46); MONOCYTES ABSOLUTE AUTO 1.74 K/mm3 (0.16-1.47); MONOCYTES PERCENT AUTO 12 % (4-13); Mean Corpuscular HGB 24.9 pg (26.0-34.0); Mean Corpuscular Volume 75 fL (80-100); Mean Platelet Volume 9.1 fL (9.1-12.4); NEUTROPHILS ABSOLUTE AUTO 11.46 K/mm3 (1.96-9.15); NEUTROPHILS PERCENT AUTO 77 % (41-73); Platelet Count 385 K/mm3 (150-400); RDW Coefficient Variation 19.4 % (11.7-14.2); RDW Standard Deviation 54.4 fL (35.1-46.3); Red Blood Cell Count 2.93 M/mm3 (4.30-5.90); White Blood Cell Count 14.93 K/mm3 (4.00-11.30)
[2022-07-07 15:19] LABS: Albumin, Blood 3.3 g/dL (3.4-5.0); Albumin/Globulin Ratio 0.9 (0.8-1.8); Bilirubin, Total 0.5 mg/dL (0.1-1.0); Bun/Creatinine Ratio 16.5 (12.0-20.0); Calcium, Blood 8.5 mg/dL (8.5-10.1); Creatinine, Blood 0.49 mg/dL (0.60-1.20); Globulin, Blood 3.7 g/dL (2.2-4.0); Potassium, Blood 4.4 mmol/L (3.5-5.5)
[2022-07-07 18:30] LABS: Percent Saturation 6.5 % (20.0-50.0)
--- NOTE | 2022-07-07 20:47 | NUR ---
ADMISSION: PATIENT IS RECIEVED FROM ER VIA [employer]. PRESSURE DRSG IS COVERING CHRONIC WOUND ABOVE LEFT ORBITAL AREA. VSS, REPORTING MIRGRAIN PAIN 8/10. WITH SOME BLURRED VISION IN LEFT EYE, NOT NEW. PATIENT IS A&O TO SELF AN PLACE. THIS IT IS AUGUST. PATIENT IS ORIENTED TO ROOM AND CALL ARGUETA. TELI IS PLACED.
[2022-07-08 05:24] LABS: BASOPHILS ABSOLUTE AUTO 0.04 K/mm3 (0.00-0.23); BASOPHILS PERCENT AUTO 0 % (0-2); EOSINOPHILS ABSOLUTE AUTO 0.09 K/mm3 (0.00-0.68); EOSINOPHILS PERCENT AUTO 1 % (0-6); Hematocrit 21.2 % (37.0-53.0); Hemoglobin 6.9 g/dL (13.5-17.5); IMMATURE GRAN ABSOLUTE AUTO 0.03 K/mm3 (0.00-0.10); IMMATURE GRAN PERCENT AUTO 0 % (0-1); LYMPHOCYTES ABSOLUTE AUTO 1.11 K/mm3 (0.84-5.20); LYMPHOCYTES PERCENT AUTO 13 % (21-46); MONOCYTES ABSOLUTE AUTO 1.33 K/mm3 (0.16-1.47); MONOCYTES PERCENT AUTO 15 % (4-13); Mean Corpuscular HGB 24.9 pg (26.0-34.0); Mean Corpuscular HGB Conc 32.5 g/dL (31.5-36.5); Mean Corpuscular Volume 77 fL (80-100); NEUTROPHILS PERCENT AUTO 71 % (41-73); Platelet Count 335 K/mm3 (150-400); RDW Coefficient Variation 19.3 % (11.7-14.2); RDW Standard Deviation 53.4 fL (35.1-46.3); Red Blood Cell Count 2.77 M/mm3 (4.30-5.90)
[2022-07-08 06:01] LABS: Albumin, Blood 2.9 g/dL (3.4-5.0); Albumin/Globulin Ratio 0.9 (0.8-1.8); Bilirubin, Total 0.8 mg/dL (0.1-1.0); Bun/Creatinine Ratio 16.2 (12.0-20.0); Calcium, Blood 8.1 mg/dL (8.5-10.1); Creatinine, Blood 0.43 mg/dL (0.60-1.20); Globulin, Blood 3.2 g/dL (2.2-4.0); Potassium, Blood 4.4 mmol/L (3.5-5.5); Total Protein, Blood 6.1 g/dL (6.4-8.2)
--- NOTE | 2022-07-08 06:10 | NUR ---
SHIFT SUMMARY: VSS, NO S/S OF DETOX. HEADACHE WAS TREATED WITH TYLENOL WITH FAIR EFFECT. USING THE URINAL TO VOID SMALL AMTS. THROUGH THE NIGHT. NO REPORTS OF CHEST PAIN. MED REC IS NOT COMPLETE, WILL NEED TO [facility] WITH [facility] DUE TO PATIENT CONFUSION. PATIENT REPORTS TAKING MEDICATIONS THAT HAVE BEEN DC'D ON THE MED REC? IVF ARE INFUSING PER MD ORDER.
[2022-07-08] MEDS ORDERED: Seroquel Xr50 MG PO (14:42)
[2022-07-08] MEDS ORDERED: PRAZ1 PO (14:43)
[2022-07-08] MEDS ORDERED: BUTALBITAL-ACE1 EAC3 PO (14:44)
[2022-07-08] MEDS ORDERED: Naltrexone HCl50 MG PO (15:34)
[2022-07-08] MEDS ORDERED: MIRT15 (15:35)
--- NOTE | 2022-07-08 16:16 | NUR ---
NOTED ON FIRST UNIT OF BLOOD, ON LABEL BLOOD BAND ID # [id number]. PRIOR TO GIVING BLOOD NOTIFIED BLOOD BANK AND VERIFIED. NEW LABEL SENT AND ATTACHED TO UNIT PRIOR TO GIVING. VERIFIED WITH SECOND RN. CHARGE NURSE AWARE.
--- NOTE | 2022-07-08 19:44 | NUR ---
SHIFT SUMMARY PATIENT PLEASANT AND COOPERATIVE WITH CARE. RECEIVED 2 UNITS OF PRBCS. TOLERATED WELL. VSS. C/O HEADACHE AND HEARTBURN. MEDICATED PER JAN. USING URINAL INDEPENDENTLY. PATIENT DID NOT GET OUT OF BED THIS SHIFT. ADVANCED TO A SOFT DIET. TOLERATING WELL. REPORT GIVEN TO ONCOMING RN.
--- NOTE | 2022-07-09 05:16 | NUR ---
SLEPT WELL OVERNIGHT. USES URINAL WITHOUT DIFFICULTY. NO COMPLAINTS OF CHEST PAIN OR OTHER DISCOMFORT, TELEMETRY: SINUS RHYTHM 60'S ALL NIGHT
[2022-07-09 05:18] LABS: Hematocrit 27.6 % (37.0-53.0); Hemoglobin 9.1 g/dL (13.5-17.5); Mean Corpuscular HGB 26.1 pg (26.0-34.0); Mean Corpuscular Volume 79 fL (80-100); Mean Platelet Volume 9.3 fL (9.1-12.4); Platelet Count 328 K/mm3 (150-400); RDW Coefficient Variation 18.4 % (11.7-14.2); Red Blood Cell Count 3.49 M/mm3 (4.30-5.90)
[2022-07-09 05:57] LABS: Magnesium, Blood 2.1 mg/dL (1.6-2.4)
[2022-07-09 05:58] LABS: Albumin, Blood 2.6 g/dL (3.4-5.0); Anion Gap 7 mmol/L (6-16); Blood Urea Nitrogen 4 mg/dL (8-24); Bun/Creatinine Ratio 10.4 (12.0-20.0); CO2, Blood 26 mmol/L (21-32); Calcium, Blood 8.2 mg/dL (8.5-10.1); Chloride, Blood 99 mmol/L (98-108); Creatinine, Blood 0.38 mg/dL (0.60-1.20); Glomerular Filtration Rate 124 (60-); Glucose, Blood 101 mg/dL (70-99); Potassium, Blood 3.8 mmol/L (3.5-5.5); Sodium, Blood 132 mmol/L (136-145)
--- NOTE | 2022-07-09 10:47 | NUR ---
PATIENT 1PA USING FWW AND GAIT BELT. PATIENT VERY UNSTEADY ON HIS FEET AND NEEDED CUEING ON PROPER USE OF FWW. C/O LEFT CALF PAIN WHEN UP. PATIENT BECAME SOB QUICKLY WITH EXERTION.
[2022-07-09] MEDS ORDERED: Acerola C500 MG PO (12:02)
[2022-07-09] MEDS ORDERED: FERSU300 PO (12:03)
[2022-07-09] MEDS ORDERED: MIRALAX17 GM PO (12:04)
[2022-07-09] MEDS ORDERED: DAILY-VITE1 EAC1 PO (12:04)
[2022-07-09] MEDS ORDERED: DOCU100 PO (12:04)
[2022-07-09] MEDS ORDERED: PANT40 PO (12:07)
--- NOTE | 2022-07-09 12:45 | NUR ---
ASSUMED CARE OF PATIENT AT THIS TIME.
--- NOTE | 2022-07-09 13:10 | NUR ---
SHIFT SUMMARY PATIENT A&OX3. VSS. C/O HEADACHE, MEDICATED PER JAN. CURRENTLY WORKING WITH PT. DRESSING ABOVE LEFT EYEBROW CHANGED. REPORT GIVEN TO ONCOMING RN.
--- NOTE | 2022-07-09 15:24 | NUR ---
PT AWAITING STAT IMAGING TO LEFT LEG. LEG HAS SIGNIFICANT SWELLING COMPARED TO RIGHT LEG AND IS TENDER AND HOT TO THE TOUCH.
--- NOTE | 2022-07-09 17:30 | NUR ---
DICHARGE: PT DC TO HOME AT THIS TIME WITH [facility]. IV DC'D WNL. PT VERBALIZED UNDERSTANDING OF INSTRUCTIONS BUT SHOWED NO INTEREST AND SEEMED UNRECEPTIVE. HOME HEALTH ORDERED. PT EXPRESSED DESIRE TO USE [facility]. ORDERS FAXED TO THEM AND FOLLOW UP MESSAGE LEFT FOR THE [facility]OSP[facility]. PT LEFT VIA WHEELCHAIR TO [facility].
== END 2022-07-09 17:38 | disposition home health service (06) | DRG 641 ==
LOC: ER 13:23 → MEDS 13:24 → ENPENDDIS 07-09 11:38 → EDPENDDIS 07-09 11:38 → MEDS 07-09 17:38
PROVIDERS: Emergency Medicine; Internal Medicine; ADMIT Internal Medicine
DX: E87.1 Hypo-osmolality and hyponatremia (principal); D62 Acute posthemorrhagic anemia; S05.32XA Ocular laceration without prolapse or loss of intraocular tissue, left eye, initial encounter; I69.354 Hemiplegia and hemiparesis following cerebral infarction affecting left non-dominant side; E86.0 Dehydration; F10.20 Alcohol dependence, uncomplicated; W18.30XA Fall on same level, unspecified, initial encounter; Y92.009 Unspecified place in unspecified non-institutional (private) residence as the place of occurrence of the external cause; J44.9 Chronic obstructive pulmonary disease, unspecified; G40.909 Epilepsy, unspecified, not intractable, without status epilepticus; G43.909 Migraine, unspecified, not intractable, without status migrainosus; F41.8 Other specified anxiety disorders; Z88.8 Allergy status to other drugs, medicaments and biological substances; F17.210 Nicotine dependence, cigarettes, uncomplicated; D72.828 Other elevated white blood cell count; I10 Essential (primary) hypertension
CPT/HCPCS: 36415; 71045; 80053; 80069; 82607; 82728; 82746; 83540; 83550; 83735; 84295; 84484; 85025; 85027; 86850; 86900; 86901; 86923; 93005; 93010; 93971; 96361; 96365; 96367; 97110; 97162; 99285-25; A9270; G0378; G0480; J3411; J7030; P9016

== ENCOUNTER 2022-07-09 21:31 | Emergency (ER) | payer OTHER ==
[~2022-07-09] VITALS: Ht 182.9 cm; Wt 86.2 kg
[~2022-07-09 21:31] MED LIST changes: +Acerola C500 MG PO; +BUTALBITAL-ACE1 EAC3 PO; +DAILY-VITE1 EAC1 PO; +MIRALAX17 GM PO; +MIRT15; +PANT40 PO; +PRAZ1 PO; +Seroquel Xr50 MG PO
[2022-07-09 21:56] LABS: Source, Urine Clean Catch
[2022-07-09 21:59] LABS: BASOPHILS ABSOLUTE AUTO 0.06 K/mm3 (0.00-0.23); BASOPHILS PERCENT AUTO 1 % (0-2); EOSINOPHILS ABSOLUTE AUTO 0.07 K/mm3 (0.00-0.68); EOSINOPHILS PERCENT AUTO 1 % (0-6); Hematocrit 30.1 % (37.0-53.0); Hemoglobin 9.9 g/dL (13.5-17.5); IMMATURE GRAN ABSOLUTE AUTO 0.05 K/mm3 (0.00-0.10); IMMATURE GRAN PERCENT AUTO 1 % (0-1); LYMPHOCYTES ABSOLUTE AUTO 1.29 K/mm3 (0.84-5.20); LYMPHOCYTES PERCENT AUTO 13 % (21-46); MONOCYTES ABSOLUTE AUTO 1.07 K/mm3 (0.16-1.47); MONOCYTES PERCENT AUTO 10 % (4-13); Mean Corpuscular HGB 26.3 pg (26.0-34.0); Mean Corpuscular HGB Conc 32.9 g/dL (31.5-36.5); Mean Corpuscular Volume 80 fL (80-100); Mean Platelet Volume 8.6 fL (9.1-12.4); NEUTROPHILS ABSOLUTE AUTO 7.71 K/mm3 (1.96-9.15); NEUTROPHILS PERCENT AUTO 75 % (41-73); Platelet Count 377 K/mm3 (150-400); RDW Coefficient Variation 18.8 % (11.7-14.2); RDW Standard Deviation 53.9 fL (35.1-46.3); Red Blood Cell Count 3.76 M/mm3 (4.30-5.90); White Blood Cell Count 10.25 K/mm3 (4.00-11.30)
[2022-07-09 22:04] LABS: Bilirubin, Urine Neg (Neg); Blood, Urine Neg (Neg); Glucose Qualitative, Urine Neg (Neg); Ketones, Urine Neg (Neg); Leukocyte Esterase, Urine Neg (Neg); Nitrite, Urine Neg (Neg); Protein, Urine Neg (Neg); Specific Gravity, Urine 1.005 (1.003-1.022); Urobilinogen, Urine NORM (Normal)
[2022-07-09 22:08] LABS: Appearance, Urine Clear (Clear); Color, Urine Yellow (P-Yellow)
[2022-07-09 22:10] LABS: Bun/Creatinine Ratio 12.1 (12.0-20.0); Calcium, Blood 8.7 mg/dL (8.5-10.1); Creatinine, Blood 0.49 mg/dL (0.60-1.20); Potassium, Blood 3.7 mmol/L (3.5-5.5)
[2022-07-09 22:17] LABS: U Amphetamine Screen Not Detected; U Barbituate Screen Not Detected; U Benzodiazapine Screen Not Detected; U Buprenorphine Screen Not Detected; U Cannabinoids Screen Not Detected; U Cocaine Screen Not Detected; U Methadone Screen Not Detected; U Methamphetamine Screen Not Detected; U Opiates Screen Not Detected; U Oxycodone Screen Not Detected; U Phencyclidine Screen Not Detected; U Propoxyphene Screen Not Detected
[2022-07-11] MEDS ORDERED: ONE DAILY MUL400 MCG PO (13:08)
== END 2022-07-10 00:37 | disposition home or self-care (01) ==
LOC: ER 21:31
PROVIDERS: Student in an Organized Health Care Education/Training Program
DX: R07.9 Chest pain, unspecified (principal); F10.10 Alcohol abuse, uncomplicated; F17.210 Nicotine dependence, cigarettes, uncomplicated; J43.9 Emphysema, unspecified; Z86.73 Personal history of transient ischemic attack (TIA), and cerebral infarction without residual deficits; Z88.8 Allergy status to other drugs, medicaments and biological substances; Z79.899 Other long term (current) drug therapy; I10 Essential (primary) hypertension; G40.909 Epilepsy, unspecified, not intractable, without status epilepticus
CPT/HCPCS: 36415; 80048; 81003; 84484; 85025; 93005; 93010; 99284-25; A9270

== ENCOUNTER 2022-07-10 15:15 | Observation (INO) | payer OTHER ==
[~2022-07-10] VITALS: Ht 177.8 cm; Wt 81.7 kg
[2022-07-10 16:02] LABS: Source, Urine Clean Catch
[2022-07-10 16:10] LABS: Bilirubin, Urine Neg (Neg); Blood, Urine Neg (Neg); Glucose Qualitative, Urine Neg (Neg); Ketones, Urine Neg (Neg); Leukocyte Esterase, Urine Neg (Neg); Nitrite, Urine Neg (Neg); Protein, Urine Neg (Neg); Urobilinogen, Urine NORM (Normal); pH, Urine 6.5 (5.0-8.0)
[2022-07-10 16:22] LABS: Salicylate <1.7 mg/dL (2.8-20.0)
[2022-07-10 16:31] LABS: Ethanol (Alcohol), Blood, Med 262 mg/dL
[2022-07-10 16:39] LABS: Acetaminophen, Random <2.0 ug/mL (10.0-30.0); Alanine Aminotransfer (ALT/SGP 32 U/L (12-78); Albumin, Blood 3.2 g/dL (3.4-5.0); Albumin/Globulin Ratio 0.8 (0.8-1.8); Alk Phos 86 U/L (50-136); Anion Gap 10 mmol/L (6-16); Aspartate Aminotrans (AST/SGOT 32 U/L (12-37); Bilirubin, Total 0.6 mg/dL (0.1-1.0); Blood Urea Nitrogen 4 mg/dL (8-24); Bun/Creatinine Ratio 8.5 (12.0-20.0); CO2, Blood 23 mmol/L (21-32); Calcium, Blood 8.3 mg/dL (8.5-10.1); Chloride, Blood 104 mmol/L (98-108); Creatinine, Blood 0.47 mg/dL (0.60-1.20); Globulin, Blood 3.8 g/dL (2.2-4.0); Glomerular Filtration Rate 116 (60-); Glucose, Blood 91 mg/dL (70-99); Potassium, Blood 3.6 mmol/L (3.5-5.5); Sodium, Blood 137 mmol/L (136-145)
[2022-07-10 17:05] LABS: U Amphetamine Screen Not Detected; U Barbituate Screen Not Detected; U Benzodiazapine Screen Not Detected; U Buprenorphine Screen Not Detected; U Cannabinoids Screen Not Detected; U Cocaine Screen Not Detected; U Methadone Screen Not Detected; U Methamphetamine Screen Not Detected; U Opiates Screen Not Detected; U Oxycodone Screen Not Detected; U Phencyclidine Screen Not Detected; U Propoxyphene Screen Not Detected
[2022-07-10 17:06] LABS: BASOPHILS ABSOLUTE AUTO 0.07 K/mm3 (0.00-0.23); BASOPHILS PERCENT AUTO 1 % (0-2); EOSINOPHILS ABSOLUTE AUTO 0.14 K/mm3 (0.00-0.68); EOSINOPHILS PERCENT AUTO 2 % (0-6); Hematocrit 30.4 % (37.0-53.0); Hemoglobin 9.9 g/dL (13.5-17.5); IMMATURE GRAN ABSOLUTE AUTO 0.04 K/mm3 (0.00-0.10); IMMATURE GRAN PERCENT AUTO 0 % (0-1); LYMPHOCYTES ABSOLUTE AUTO 1.54 K/mm3 (0.84-5.20); LYMPHOCYTES PERCENT AUTO 17 % (21-46); MONOCYTES ABSOLUTE AUTO 0.76 K/mm3 (0.16-1.47); MONOCYTES PERCENT AUTO 8 % (4-13); Mean Corpuscular HGB 25.8 pg (26.0-34.0); Mean Corpuscular HGB Conc 32.6 g/dL (31.5-36.5); Mean Corpuscular Volume 79 fL (80-100); NEUTROPHILS PERCENT AUTO 72 % (41-73); RDW Coefficient Variation 19.8 % (11.7-14.2); RDW Standard Deviation 55.5 fL (35.1-46.3); Red Blood Cell Count 3.83 M/mm3 (4.30-5.90); White Blood Cell Count 9.05 K/mm3 (4.00-11.30)
[2022-07-10 17:09] LABS: Appearance, Urine Clear (Clear); Color, Urine Pale Yellow (P-Yellow)
[2022-07-10 17:40] LABS: Influenza A, PCR NEGATIVE (NEGATIVE); Influenza B, PCR NEGATIVE (NEGATIVE); Resp Syncytial Virus, PCR NEGATIVE (NEGATIVE); SARS-Cov-2 (COVID-19) PCR, MMC NEGATIVE (NEGATIVE)
[2022-07-10 17:47] LABS: Mean Platelet Volume 8.9 fL (9.1-12.4); Platelet Count 369 K/mm3 (150-400)
[2022-07-10 23:36] LABS: Magnesium, Blood 2.1 mg/dL (1.6-2.4)
[2022-07-11] MEDS ORDERED: ONE DAILY MUL400 MCG PO (13:08)
== END 2022-07-11 18:15 ==
LOC: ER 15:15 → EOR 18:11
PROVIDERS: Student in an Organized Health Care Education/Training Program; ADMIT Student in an Organized Health Care Education/Training Program
DX: F33.3 Major depressive disorder, recurrent, severe with psychotic symptoms (principal); F10.129 Alcohol abuse with intoxication, unspecified; J43.9 Emphysema, unspecified; I10 Essential (primary) hypertension; F17.210 Nicotine dependence, cigarettes, uncomplicated; Z88.8 Allergy status to other drugs, medicaments and biological substances; Z20.822 Contact with and (suspected) exposure to COVID-19
CPT/HCPCS: 0241U; 36415; 80053; 81003; 83735; 85025; 93005; 93010; A9270; G0480

== ENCOUNTER 2022-07-23 12:44 | Emergency (ER) | payer OTHER ==
[~2022-07-23] VITALS: Ht 182.9 cm; Wt 81.2 kg
[~2022-07-23 12:44] MED LIST changes: +ONE DAILY MUL400 MCG PO
[2022-07-23 14:10] LABS: Source, Urine Clean Catch
[2022-07-23 14:18] LABS: Bilirubin, Urine Neg (Neg); Blood, Urine 1+ (Neg); Glucose Qualitative, Urine Neg (Neg); Ketones, Urine Neg (Neg); Leukocyte Esterase, Urine Neg (Neg); Nitrite, Urine Neg (Neg); Protein, Urine Neg (Neg); Urobilinogen, Urine NORM (Normal)
[2022-07-23 14:32] LABS: International Normalized Ratio 0.99; Prothrombin Time Results 10.4 Sec (9.7-11.5)
[2022-07-23 14:35] LABS: BASOPHILS ABSOLUTE AUTO 0.08 K/mm3 (0.00-0.23); BASOPHILS PERCENT AUTO 1 % (0-2); EOSINOPHILS ABSOLUTE AUTO 0.03 K/mm3 (0.00-0.68); EOSINOPHILS PERCENT AUTO 0 % (0-6); Hematocrit 30.2 % (37.0-53.0); IMMATURE GRAN ABSOLUTE AUTO 0.03 K/mm3 (0.00-0.10); IMMATURE GRAN PERCENT AUTO 0 % (0-1); LYMPHOCYTES ABSOLUTE AUTO 1.75 K/mm3 (0.84-5.20); LYMPHOCYTES PERCENT AUTO 17 % (21-46); MONOCYTES ABSOLUTE AUTO 1.51 K/mm3 (0.16-1.47); MONOCYTES PERCENT AUTO 14 % (4-13); Mean Corpuscular HGB 27.2 pg (26.0-34.0); Mean Corpuscular HGB Conc 33.1 g/dL (31.5-36.5); Mean Corpuscular Volume 82 fL (80-100); Mean Platelet Volume 9.2 fL (9.1-12.4); NEUTROPHILS ABSOLUTE AUTO 7.17 K/mm3 (1.96-9.15); NEUTROPHILS PERCENT AUTO 68 % (41-73); Platelet Count 498 K/mm3 (150-400); RDW Coefficient Variation 21.9 % (11.7-14.2); RDW Standard Deviation 66.2 fL (35.1-46.3); Red Blood Cell Count 3.68 M/mm3 (4.30-5.90); White Blood Cell Count 10.57 K/mm3 (4.00-11.30)
[2022-07-23 14:35] LABS: Appearance, Urine Clear (Clear); Color, Urine Yellow (P-Yellow)
[2022-07-23 14:47] LABS: Albumin, Blood 3.3 g/dL (3.4-5.0); Albumin/Globulin Ratio 0.9 (0.8-1.8); Bilirubin, Total 0.7 mg/dL (0.1-1.0); Bun/Creatinine Ratio 12.4 (12.0-20.0); Calcium, Blood 8.6 mg/dL (8.5-10.1); Creatinine, Blood 0.4 mg/dL (0.60-1.20); Globulin, Blood 3.8 g/dL (2.2-4.0); Phosphorus, Blood 2.6 mg/dL (2.5-4.9); Potassium, Blood 4.3 mmol/L (3.5-5.5); Total Protein, Blood 7.1 g/dL (6.4-8.2)
[2022-07-23 14:52] LABS: U Amphetamine Screen Not Detected
[2022-07-23 14:53] LABS: U Barbituate Screen Not Detected; U Benzodiazapine Screen DETECTED; U Buprenorphine Screen Not Detected; U Cannabinoids Screen Not Detected; U Cocaine Screen Not Detected; U Methadone Screen Not Detected; U Methamphetamine Screen Not Detected; U Opiates Screen Not Detected; U Oxycodone Screen Not Detected; U Phencyclidine Screen Not Detected; U Propoxyphene Screen Not Detected
[2022-07-23 14:57] LABS: White Blood Cells, Urine 0-2 /hpf (0-5)
[2022-07-23 14:58] LABS: Bacteria Rare /hpf; Red Blood Cells, Urine 0-2 /hpf (0-2); Squamous Epithelial Cells Rare /hpf (Few)
== END 2022-07-23 19:20 | disposition home or self-care (01) ==
LOC: ER 12:44
PROVIDERS: Physician Assistant
DX: S00.11XA Contusion of right eyelid and periocular area, initial encounter (principal); J44.9 Chronic obstructive pulmonary disease, unspecified; I10 Essential (primary) hypertension; E87.1 Hypo-osmolality and hyponatremia; F17.210 Nicotine dependence, cigarettes, uncomplicated; W06.XXXA Fall from bed, initial encounter; Z79.899 Other long term (current) drug therapy; Z88.8 Allergy status to other drugs, medicaments and biological substances; Z86.73 Personal history of transient ischemic attack (TIA), and cerebral infarction without residual deficits
CPT/HCPCS: 36415; 70450; 70486; 71045; 72125; 80053; 81001; 83690; 84100; 85025; 85610; 93005; 93010; G0480; J7030

== ENCOUNTER 2022-07-24 13:04 | Emergency (ER) | payer OTHER ==
[~2022-07-24] VITALS: Ht 182.9 cm; Wt 84.8 kg
[2022-07-24 14:53] LABS: Source, Urine Clean Catch
[2022-07-24 14:59] LABS: Appearance, Urine Clear (Clear); Bilirubin, Urine Neg (Neg); Blood, Urine 1+ (Neg); Color, Urine Yellow (P-Yellow); Glucose Qualitative, Urine Neg (Neg); Ketones, Urine Neg (Neg); Leukocyte Esterase, Urine Neg (Neg); Nitrite, Urine Neg (Neg); Protein, Urine Neg (Neg); Urobilinogen, Urine NORM (Normal)
[2022-07-24 15:35] LABS: Red Blood Cells, Urine 0-2 /hpf (0-2); White Blood Cells, Urine 0-2 /hpf (0-5)
[2022-07-24 15:36] LABS: Bacteria Rare /hpf; Squamous Epithelial Cells Rare /hpf (Few)
[2022-07-24 16:01] LABS: BASOPHILS ABSOLUTE AUTO 0.14 K/mm3 (0.00-0.23); BASOPHILS PERCENT AUTO 2 % (0-2); EOSINOPHILS PERCENT AUTO 1 % (0-6); Hematocrit 28.6 % (37.0-53.0); Hemoglobin 9.7 g/dL (13.5-17.5); IMMATURE GRAN ABSOLUTE AUTO 0.02 K/mm3 (0.00-0.10); IMMATURE GRAN PERCENT AUTO 0 % (0-1); LYMPHOCYTES PERCENT AUTO 19 % (21-46); MONOCYTES ABSOLUTE AUTO 0.87 K/mm3 (0.16-1.47); MONOCYTES PERCENT AUTO 9 % (4-13); Mean Corpuscular HGB 27.6 pg (26.0-34.0); Mean Corpuscular HGB Conc 33.9 g/dL (31.5-36.5); Mean Corpuscular Volume 82 fL (80-100); Mean Platelet Volume 8.5 fL (9.1-12.4); NEUTROPHILS ABSOLUTE AUTO 6.46 K/mm3 (1.96-9.15); NEUTROPHILS PERCENT AUTO 69 % (41-73); Platelet Count 513 K/mm3 (150-400); RDW Standard Deviation 65.4 fL (35.1-46.3); Red Blood Cell Count 3.51 M/mm3 (4.30-5.90); White Blood Cell Count 9.39 K/mm3 (4.00-11.30)
[2022-07-24 16:17] LABS: Albumin, Blood 3.2 g/dL (3.4-5.0); Albumin/Globulin Ratio 0.9 (0.8-1.8); Bilirubin, Total 0.6 mg/dL (0.1-1.0); Bun/Creatinine Ratio 7.2 (12.0-20.0); Calcium, Blood 8.2 mg/dL (8.5-10.1); Creatinine, Blood 0.42 mg/dL (0.60-1.20); Globulin, Blood 3.4 g/dL (2.2-4.0); Total Protein, Blood 6.6 g/dL (6.4-8.2)
[2022-07-24 16:28] LABS: Magnesium, Blood 1.9 mg/dL (1.6-2.4)
== END 2022-07-24 19:00 | disposition left against medical advice (07) ==
LOC: ER 13:04
PROVIDERS: Student in an Organized Health Care Education/Training Program
DX: R07.9 Chest pain, unspecified (principal); R20.0 Anesthesia of skin; Z72.89 Other problems related to lifestyle; J43.9 Emphysema, unspecified; I10 Essential (primary) hypertension; F17.210 Nicotine dependence, cigarettes, uncomplicated; I69.998 Other sequelae following unspecified cerebrovascular disease; Z88.8 Allergy status to other drugs, medicaments and biological substances; Z79.899 Other long term (current) drug therapy
CPT/HCPCS: 36415; 71045; 80053; 81001; 83690; 83735; 83880; 84484; 85025; A9270; J7030

== ENCOUNTER 2023-01-10 22:26 | Observation (INO) | payer OTHER, MEDICARE ==
[~2023-01-10] VITALS: Ht 193 cm; Wt 67.1 kg
[~2023-01-10 22:26] MED LIST changes: +AMLODIPINE BESY10 MG PO; +MELATONIN5 M1 PO; +PRAMIPEXOLE DIHY1 M1 PO; +SEROQUEL50 MG PO; +TAMSULOSIN HCL0.4 M1 PO; +THEREMS MULTI400 MCG PO; +ZEBUTAL 50-3251 EA10 PO
[2023-01-13] MEDS ORDERED: ZESTRIL40 M1 PO (15:36)
== END 2023-01-11 06:35 | disposition home or self-care (01) ==
LOC: ER 22:26 → EOR 22:27
PROVIDERS: ADMIT Student in an Organized Health Care Education/Training Program
DX: R45.851 Suicidal ideations (principal); Z88.8 Allergy status to other drugs, medicaments and biological substances; F10.129 Alcohol abuse with intoxication, unspecified; F17.210 Nicotine dependence, cigarettes, uncomplicated
CPT/HCPCS: 99285; A9270; G0378

== ENCOUNTER 2023-01-15 22:46 | Emergency (ER) | payer OTHER ==
[~2023-01-15] VITALS: Ht 185.4 cm; Wt 63.5 kg
[~2023-01-15 22:46] MED LIST changes: +ZESTRIL40 M1 PO
== END 2023-01-16 06:00 | disposition home or self-care (01) ==
LOC: ER 22:46
DX: S09.90XA Unspecified injury of head, initial encounter (principal); W01.0XXA Fall on same level from slipping, tripping and stumbling without subsequent striking against object, initial encounter; F10.129 Alcohol abuse with intoxication, unspecified; J43.9 Emphysema, unspecified; I10 Essential (primary) hypertension; F17.210 Nicotine dependence, cigarettes, uncomplicated; Z91.81 History of falling; Z88.5 Allergy status to narcotic agent; Z79.899 Other long term (current) drug therapy
CPT/HCPCS: 36415; 70450

== ENCOUNTER 2023-01-17 14:27 | Emergency (ER) | payer OTHER ==
[~2023-01-17] VITALS: Ht 182.9 cm; Wt 68.0 kg
== END 2023-01-17 16:53 | disposition home or self-care (01) ==
LOC: ER 14:27
DX: S09.90XA Unspecified injury of head, initial encounter (principal); M25.511 Pain in right shoulder; M25.521 Pain in right elbow; J43.9 Emphysema, unspecified; I10 Essential (primary) hypertension; G40.909 Epilepsy, unspecified, not intractable, without status epilepticus; G43.909 Migraine, unspecified, not intractable, without status migrainosus; F17.210 Nicotine dependence, cigarettes, uncomplicated; Z88.8 Allergy status to other drugs, medicaments and biological substances; Z79.899 Other long term (current) drug therapy; Z86.73 Personal history of transient ischemic attack (TIA), and cerebral infarction without residual deficits; W01.0XXA Fall on same level from slipping, tripping and stumbling without subsequent striking against object, initial encounter
CPT/HCPCS: 70450; 73030; 73070; 99284-25

== ENCOUNTER 2023-01-18 17:52 | Emergency (ER) | payer OTHER ==
[~2023-01-18] VITALS: Ht 182.9 cm; Wt 85.7 kg
== END 2023-01-18 18:35 | disposition left against medical advice (07) ==
LOC: ER 17:52
DX: Z53.21 Procedure and treatment not carried out due to patient leaving prior to being seen by health care provider (principal)
CPT/HCPCS: 93005; 93010; 99282-25

== ENCOUNTER 2023-01-28 04:37 | Emergency (ER) | payer OTHER ==
[~2023-01-28] VITALS: Ht 182.9 cm; Wt 80.7 kg
[2023-01-28] MEDS ORDERED: LIDO700A20 TOP (07:24)
== END 2023-01-28 07:39 | disposition home or self-care (01) ==
LOC: ER 04:37
DX: R07.81 Pleurodynia (principal); W01.0XXA Fall on same level from slipping, tripping and stumbling without subsequent striking against object, initial encounter; I10 Essential (primary) hypertension; J43.9 Emphysema, unspecified; F17.210 Nicotine dependence, cigarettes, uncomplicated; Z88.8 Allergy status to other drugs, medicaments and biological substances
CPT/HCPCS: 71101; 94640; A9270

== ENCOUNTER 2023-01-30 15:20 | Emergency (ER) | payer OTHER ==
[~2023-01-30] VITALS: Ht 182.9 cm; Wt 85.7 kg
[2023-01-30 17:40] LABS: BASOPHILS ABSOLUTE AUTO 0.03 K/mm3 (0.00-0.23); BASOPHILS PERCENT AUTO 0 % (0-2); EOSINOPHILS ABSOLUTE AUTO 0.09 K/mm3 (0.00-0.68); EOSINOPHILS PERCENT AUTO 1 % (0-6); Hematocrit 32.6 % (37.0-53.0); Hemoglobin 11.1 g/dL (13.5-17.5); IMMATURE GRAN ABSOLUTE AUTO 0.01 K/mm3 (0.00-0.10); IMMATURE GRAN PERCENT AUTO 0 % (0-1); LYMPHOCYTES PERCENT AUTO 12 % (21-46); MONOCYTES ABSOLUTE AUTO 0.93 K/mm3 (0.16-1.47); MONOCYTES PERCENT AUTO 11 % (4-13); Mean Corpuscular HGB 31.3 pg (26.0-34.0); Mean Corpuscular Volume 92 fL (80-100); Mean Platelet Volume 9.8 fL (9.1-12.4); NEUTROPHILS ABSOLUTE AUTO 6.29 K/mm3 (1.96-9.15); NEUTROPHILS PERCENT AUTO 75 % (41-73); Platelet Count 252 K/mm3 (150-400); RDW Coefficient Variation 17.9 % (11.7-14.2); RDW Standard Deviation 60.6 fL (35.1-46.3); Red Blood Cell Count 3.55 M/mm3 (4.30-5.90); White Blood Cell Count 8.35 K/mm3 (4.00-11.30)
[2023-01-30 17:56] LABS: Bun/Creatinine Ratio 16.6 (12.0-20.0); Calcium, Blood 8.1 mg/dL (8.5-10.1); Creatinine, Blood 0.48 mg/dL (0.60-1.20); Potassium, Blood 3.9 mmol/L (3.5-5.5)
[2023-01-30] MEDS ORDERED: CHLO25 PO (21:37)
== END 2023-01-30 23:30 | disposition other institution (70) ==
LOC: ER 15:20
PROVIDERS: Student in an Organized Health Care Education/Training Program
DX: F10.129 Alcohol abuse with intoxication, unspecified (principal); I10 Essential (primary) hypertension; J43.9 Emphysema, unspecified; F17.210 Nicotine dependence, cigarettes, uncomplicated; Z91.81 History of falling; Z88.8 Allergy status to other drugs, medicaments and biological substances; Z86.73 Personal history of transient ischemic attack (TIA), and cerebral infarction without residual deficits
CPT/HCPCS: 36415; 70450; 71101; 80048; 85025; 93005; 93010; 99285-25

== ENCOUNTER 2023-11-01 13:26 | Emergency (ER) | payer MEDICARE, OTHER ==
[~2023-11-01] VITALS: Ht 182.9 cm; Wt 83.9 kg
[~2023-11-01 13:26] MED LIST changes: +CHLO25 PO
[2023-11-01 19:32] LABS: BASOPHILS ABSOLUTE AUTO 0.08 K/mm3 (0.00-0.23); BASOPHILS PERCENT AUTO 1 % (0-2); EOSINOPHILS ABSOLUTE AUTO 0.17 K/mm3 (0.00-0.68); EOSINOPHILS PERCENT AUTO 2 % (0-6); Hematocrit 41.5 % (37.0-53.0); Hemoglobin 14.4 g/dL (13.5-17.5); IMMATURE GRAN ABSOLUTE AUTO 0.02 K/mm3 (0.00-0.10); IMMATURE GRAN PERCENT AUTO 0 % (0-1); LYMPHOCYTES ABSOLUTE AUTO 1.18 K/mm3 (0.84-5.20); LYMPHOCYTES PERCENT AUTO 13 % (21-46); MONOCYTES ABSOLUTE AUTO 1.24 K/mm3 (0.16-1.47); MONOCYTES PERCENT AUTO 14 % (4-13); Mean Corpuscular HGB 32.4 pg (26.0-34.0); Mean Corpuscular HGB Conc 34.7 g/dL (31.5-36.5); Mean Corpuscular Volume 94 fL (80-100); Mean Platelet Volume 9.5 fL (9.1-12.4); NEUTROPHILS PERCENT AUTO 70 % (41-73); Platelet Count 310 K/mm3 (150-400); RDW Coefficient Variation 16.1 % (11.7-14.2); RDW Standard Deviation 56.1 fL (35.1-46.3); Red Blood Cell Count 4.44 M/mm3 (4.30-5.90); White Blood Cell Count 8.79 K/mm3 (4.00-11.30)
[2023-11-01 20:12] VITALS: BP 171/99
[2023-11-01 20:18] LABS: Albumin, Blood 3.4 g/dL (3.4-5.0); Albumin/Globulin Ratio 0.8 (0.8-1.8); Bilirubin, Total 0.5 mg/dL (0.1-1.0); Bun/Creatinine Ratio 12.2 (12.0-20.0); Calcium, Blood 8.7 mg/dL (8.5-10.1); Creatinine, Blood 0.41 mg/dL (0.60-1.20); Globulin, Blood 4.5 g/dL (2.2-4.0); Potassium, Blood 4.2 mmol/L (3.5-5.5); Total Protein, Blood 7.9 g/dL (6.4-8.2)
[2023-11-01] MEDS ORDERED: CHLO25 PO (20:40)
[2023-11-01] MEDS ORDERED: ALBU90OI INH (20:41)
== END 2023-11-01 20:47 | disposition home or self-care (01) ==
LOC: ER 13:26
PROVIDERS: Emergency Medicine
DX: F10.129 Alcohol abuse with intoxication, unspecified (principal); J43.9 Emphysema, unspecified; I10 Essential (primary) hypertension; F17.210 Nicotine dependence, cigarettes, uncomplicated
CPT/HCPCS: 36415; 71045; 80053; 85025; 94640; 94664; 99285-25

== ENCOUNTER 2023-11-09 00:16 | Inpatient (IN) | payer OTHER, MEDICARE ==
[~2023-11-09] VITALS: Ht 182.9 cm; Wt 80.7 kg
[2023-11-09] VITALS (28 sets, daily range): BP systolic 133–177; BP diastolic 71–119
[~2023-11-09 00:16] MED LIST changes: +ALBU90OI INH
[2023-11-09 01:02] LABS: Base Excess Venous 0.3 mmol/L; Bicarbonate Venous 23.7 mmol/L (24.0-30.0); PCO2 Venous 40.3 mmHg (38-42)
[2023-11-09 01:09] LABS: BASOPHILS ABSOLUTE AUTO 0.07 K/mm3 (0.00-0.23); BASOPHILS PERCENT AUTO 1 % (0-2); EOSINOPHILS ABSOLUTE AUTO 0.16 K/mm3 (0.00-0.68); EOSINOPHILS PERCENT AUTO 2 % (0-6); Hematocrit 43.8 % (37.0-53.0); Hemoglobin 14.5 g/dL (13.5-17.5); IMMATURE GRAN ABSOLUTE AUTO 0.02 K/mm3 (0.00-0.10); IMMATURE GRAN PERCENT AUTO 0 % (0-1); LYMPHOCYTES ABSOLUTE AUTO 1.23 K/mm3 (0.84-5.20); LYMPHOCYTES PERCENT AUTO 13 % (21-46); MONOCYTES PERCENT AUTO 10 % (4-13); Mean Corpuscular HGB 31.5 pg (26.0-34.0); Mean Corpuscular HGB Conc 33.1 g/dL (31.5-36.5); Mean Corpuscular Volume 95 fL (80-100); Mean Platelet Volume 9.3 fL (9.1-12.4); NEUTROPHILS ABSOLUTE AUTO 6.77 K/mm3 (1.96-9.15); NEUTROPHILS PERCENT AUTO 74 % (41-73); Platelet Count 341 K/mm3 (150-400); RDW Coefficient Variation 15.5 % (11.7-14.2); RDW Standard Deviation 54.4 fL (35.1-46.3); White Blood Cell Count 9.15 K/mm3 (4.00-11.30)
[2023-11-09 01:30] LABS: Albumin, Blood 3.4 g/dL (3.4-5.0); Albumin/Globulin Ratio 0.8 (0.8-1.8); Bilirubin, Total 0.6 mg/dL (0.1-1.0); Bun/Creatinine Ratio 10.1 (12.0-20.0); Calcium, Blood 9.1 mg/dL (8.5-10.1); Creatinine, Blood 0.89 mg/dL (0.60-1.20); Globulin, Blood 4.4 g/dL (2.2-4.0); Phosphorus, Blood 3.3 mg/dL (2.5-4.9); Potassium, Blood 3.5 mmol/L (3.5-5.5); Total Protein, Blood 7.8 g/dL (6.4-8.2)
[2023-11-09 01:33] LABS: D-Dimer, Quantitative 4.09 mg/L FEU (0.00-0.52); International Normalized Ratio 0.95
[2023-11-09 01:53] LABS: Influenza A, PCR NEGATIVE (NEGATIVE); Influenza B, PCR NEGATIVE (NEGATIVE); Resp Syncytial Virus, PCR NEGATIVE (NEGATIVE); SARS-Cov-2 (COVID-19) PCR, MMC NEGATIVE (NEGATIVE)
[2023-11-09 02:27] LABS: Source, Urine Clean Catch
[2023-11-09 02:37] LABS: Bilirubin, Urine Neg (Neg); Blood, Urine 2+ (Neg); Glucose Qualitative, Urine Neg (Neg); Ketones, Urine Neg (Neg); Leukocyte Esterase, Urine Neg (Neg); Nitrite, Urine Neg (Neg); Protein, Urine 2+ (Neg); Urobilinogen, Urine NORM (Normal)
[2023-11-09 02:47] LABS: Appearance, Urine Clear (Clear); Color, Urine Pale Yellow (P-Yellow)
[2023-11-09 02:49] LABS: Amorphous Light (0-Heavy); Bacteria Few /hpf; Red Blood Cells, Urine 0-2 /hpf (0-2); Squamous Epithelial Cells Few /hpf (Few); White Blood Cells, Urine 0-2 /hpf (0-5)
--- NOTE | 2023-11-09 12:55 | NUR ---
ASSUMED CARE/PT UPDATE PT WAS BROUGHT TO ICU FROM ED AT 0910, REPORT GIVEN BY FLORENTIN CASTILLO. UPON ARRIVAL TO THE UNIT PT A/O TO SELF. PT UNABLE TO SAY WHERE IS AT WITHOUT QUEING HIM. AT TIME OF ARRIVAL PT'S CIWA 33. PT WAS HALLUCINATING THAT HE WAS SMOKING A CIGARETTE, SPEAKING RANDOM WORDS, PULLING AT LINES. PT ARRIVED TO ICU IN 4 POINT LOCKED RESTRAINTS AND HAS REMAINED IN 4 POINT RESTRAINTS. PRECEDEX GTT INFUSING, SEE FLOWSHEET. UPON ARRIVAL TO UNIT PT'S RESPIRATION RATE WAS IN 20s-30s, RATE INCREASED WITH AGITATION. O2 SATS > 90%. OPA PLACED BY DR. STERN. PT TOLERATING WELL. CARDIAC MONITORING REFLECTED SINUS TACH, HR 110s. BP HYPERTENSIVE WITH AGITATION. PT INCONTINENT OF URINE. CONDOM CATH PLACED. PT IS SLEEPING AT THIS TIME. OPA STILL IN PLACE, O2 SATS > 94%. CARDIAC MONITORING REFLECTS NSR. BP REMAINS HYPERTENSIVE, SBP 150s. NS INFUSING THROUGH R PIV.
[2023-11-09 15:04] LABS: U Amphetamine Screen Not Detected; U Barbituate Screen DETECTED; U Benzodiazapine Screen DETECTED; U Cocaine Screen Not Detected; U Methadone Screen Not Detected; U Methamphetamine Screen Not Detected; U Opiates Screen Not Detected
[2023-11-09 15:05] LABS: U Buprenorphine Screen Not Detected; U Cannabinoids Screen Not Detected; U Oxycodone Screen Not Detected; U Phencyclidine Screen Not Detected
--- NOTE | 2023-11-09 17:01 | NUR ---
SHIFT SUMMARY PT REMAINS A/O TO SELF. PT HAS BEEN SLEEPING SINCE THIS AFTERNOON, WAKING UP WHEN PROVIDING CARE. PRECEDEX INFUSING, SEE FLOWSHEET. PT CONTINUES TO NEED REDIRECTION WHEN AWAKE, BUT RESTRAINTS HAVE BEEN OFF SINCE APPROXIMATELY 1325. WHEN AWAKE CIWA RANGING FROM 29-33 BUT UNABLE TO ACCURATELY ASSESS CIWA WHEN SLEEPING. PRECEDEX GTT INFUSING, SEE FLOWSHEET. PT HAD OPA PLACED BY DR. STERN AND WAS TOLERATING WELL, BUT ONCE AWAKE PT BEGAN TO NOT TOLERATE. ONCE ASLEEP NASAL TRUMPET PLACED AND PT IS TOLERATING WELL. O2 SATS > 93%. CARDIAC MONITORING REFLECTS NSR, WITH SOME OCCASIONAL IRREGULARITY. PT HAD RUN OF PVCs THIS SHIFT, RHYTHM STRIP SAVED RECORD. BP HYPERTENSIVE, SYSTOLIC 160s AT THIS TIME. HR 60s. CONDOM CATH PLACED THIS SHIFT D/T INCONTINENCE, PATENT AND DRAINING TO GRAVITY. PT'S SKIN HAS MULTIPLE ABRASIONS AND SCABS IN VARIOUS STAGES OF HEALING.
--- NOTE | 2023-11-09 22:30 | NUR ---
ASSUMED CARE AT 1900 PT LAYING IN BED SLEEPING AT SHIFT CHANGE. HE IS SEDATED WITH PRECDEX INFUSING AT 0.4MCG/KG/HR; HIS SPEECH IS ARBLED BUT WILL OCCATIONALLY ANSWER Y/N QUESTIONS APPROPRIATLY BUT UNABLE TO ANSWER ORIENTATION QUESTIONS; MOVES ALL EXTREMITIES; WILL ATTEMPT TO GET OUT OF BED UNSAFELY; BED ALARM ON; CIWA 19. SPO2 >90% ON 2L NC; NASAL TRUMPET IN PLACE AT TIMES FOR APNEA WHILE SLEEPING. HR 50'S; WILL PHUONG DOWN INTO THE 40'S WHILE SLEEPING. CONDOM CATH IN PLACE. NS INFUSING AT 125ML/HR. SEE SHIFT ASSESSMENT FOR FULL ASSESSMENT.
[2023-11-10] VITALS (42 sets, daily range): BP systolic 116–189; BP diastolic 68–113
[2023-11-10 03:35] LABS: BASOPHILS ABSOLUTE AUTO 0.07 K/mm3 (0.00-0.23); BASOPHILS PERCENT AUTO 1 % (0-2); EOSINOPHILS ABSOLUTE AUTO 0.48 K/mm3 (0.00-0.68); EOSINOPHILS PERCENT AUTO 7 % (0-6); Hematocrit 43.4 % (37.0-53.0); Hemoglobin 14.3 g/dL (13.5-17.5); IMMATURE GRAN ABSOLUTE AUTO 0.01 K/mm3 (0.00-0.10); IMMATURE GRAN PERCENT AUTO 0 % (0-1); LYMPHOCYTES ABSOLUTE AUTO 1.04 K/mm3 (0.84-5.20); LYMPHOCYTES PERCENT AUTO 14 % (21-46); MONOCYTES ABSOLUTE AUTO 1.03 K/mm3 (0.16-1.47); MONOCYTES PERCENT AUTO 14 % (4-13); Mean Corpuscular HGB 31.6 pg (26.0-34.0); Mean Corpuscular HGB Conc 32.9 g/dL (31.5-36.5); Mean Corpuscular Volume 96 fL (80-100); Mean Platelet Volume 9.2 fL (9.1-12.4); NEUTROPHILS ABSOLUTE AUTO 4.66 K/mm3 (1.96-9.15); NEUTROPHILS PERCENT AUTO 64 % (41-73); Platelet Count 304 K/mm3 (150-400); RDW Coefficient Variation 15.3 % (11.7-14.2); RDW Standard Deviation 54.9 fL (35.1-46.3); Red Blood Cell Count 4.52 M/mm3 (4.30-5.90); White Blood Cell Count 7.29 K/mm3 (4.00-11.30)
[2023-11-10 04:12] LABS: Albumin, Blood 2.9 g/dL (3.4-5.0); Albumin/Globulin Ratio 0.7 (0.8-1.8); Bilirubin, Total 0.5 mg/dL (0.1-1.0); Calcium, Blood 8.3 mg/dL (8.5-10.1); Creatinine, Blood 0.5 mg/dL (0.60-1.20); Globulin, Blood 4.1 g/dL (2.2-4.0); Potassium, Blood 3.3 mmol/L (3.5-5.5)
--- NOTE | 2023-11-10 06:37 | NUR ---
END OF SHIFT SUMMARY NO ACUTE EVENTS OVERNIGHT. PRECEDEX INFUSING AT 0.4MCG/KG/HR; ATIVAN GIVEN FOUR TIMES FOR CIWA 19-24; HIS SPEECH IS STARTING TO BECOME MORE CLEAR BUT CONT TO BE CONFUSED AND WILL START TO PICK AT LINES AND CORDS. SPO2 >98% ON 2L NC; PT REMOVED NASAL TRUMPET SEVERAL TIMES, IT WAS NOT REPLACED; WAS TACHYPNIC MOST OF THE NIGHT. HR 50-60'S; DOWN TO THE 40'S WHILE SLEEPING. SBP 150'S. CONDOM CATH IN PLACE WITH GOOD OUTPUT. NS FINISHED INFUSING AND IS STOPPED. WILL REPORT TO AM RN WHEN AVAILABLE.
--- NOTE | 2023-11-10 18:29 | NUR ---
Shift summary. Pt resting in bed, some improvement today. Pt oriented to self/place w/occasional periods of confusion and hallucinations. Precedex on SB since 1030 this morning, librium prn used for withdrawal symptoms. Pt up to chair for dinner. No acute events this shift. See chart for further details. Will report off to nightshift RN.
[2023-11-11] VITALS (20 sets, daily range): BP systolic 111–178; BP diastolic 78–113
[2023-11-11 04:31] LABS: BASOPHILS ABSOLUTE AUTO 0.06 K/mm3 (0.00-0.23); BASOPHILS PERCENT AUTO 1 % (0-2); EOSINOPHILS ABSOLUTE AUTO 0.48 K/mm3 (0.00-0.68); EOSINOPHILS PERCENT AUTO 8 % (0-6); Hematocrit 40.3 % (37.0-53.0); Hemoglobin 13.4 g/dL (13.5-17.5); IMMATURE GRAN ABSOLUTE AUTO 0.02 K/mm3 (0.00-0.10); IMMATURE GRAN PERCENT AUTO 0 % (0-1); LYMPHOCYTES ABSOLUTE AUTO 1.28 K/mm3 (0.84-5.20); LYMPHOCYTES PERCENT AUTO 21 % (21-46); MONOCYTES PERCENT AUTO 15 % (4-13); Mean Corpuscular HGB 31.5 pg (26.0-34.0); Mean Corpuscular HGB Conc 33.3 g/dL (31.5-36.5); Mean Corpuscular Volume 95 fL (80-100); Mean Platelet Volume 9.4 fL (9.1-12.4); NEUTROPHILS PERCENT AUTO 55 % (41-73); Platelet Count 291 K/mm3 (150-400); RDW Coefficient Variation 15.2 % (11.7-14.2); RDW Standard Deviation 53.6 fL (35.1-46.3); Red Blood Cell Count 4.25 M/mm3 (4.30-5.90); White Blood Cell Count 6.04 K/mm3 (4.00-11.30)
[2023-11-11 04:48] LABS: Bun/Creatinine Ratio 18.8 (12.0-20.0); Calcium, Blood 7.9 mg/dL (8.5-10.1); Creatinine, Blood 0.64 mg/dL (0.60-1.20); Magnesium, Blood 1.9 mg/dL (1.6-2.4); Phosphorus, Blood 3.5 mg/dL (2.5-4.9); Potassium, Blood 2.8 mmol/L (3.5-5.5)
[2023-11-11 06:58] LABS: Vancomycin, Trough 14.1 ug/mL (5.0-10.0)
[2023-11-11] MEDS ORDERED: VALACYCLOVIR1000 MG PO (13:13)
[2023-11-11] MEDS ORDERED: PRED FORTE5 M1 LEFTEYE (13:15)
[2023-11-11] MEDS ORDERED: LISI20 PO (13:16)
[2023-11-11] MEDS ORDERED: ZOLOFT10013 PO (13:17)
[2023-11-11] MEDS ORDERED: BUPROPION XL150 M1 PO (13:18)
[2023-11-11] MEDS ORDERED: REMERON1510 PO (13:18)
[2023-11-11] MEDS ORDERED: HYDHCL25 PO (13:20)
[2023-11-11] MEDS ORDERED: SUMA25 PO (13:21)
[2023-11-11] MEDS ORDERED: MELATONIN5 M1 PO (13:22)
[2023-11-11] MEDS ORDERED: ZEBUTAL 50-3251 EA10 PO (13:22)
--- NOTE | 2023-11-11 18:12 | NUR ---
Shift summary. Pt up in chair and room today. More alert with less periods of confusion this shift. Pt still forgetful, bed alarm and chair alarm necessary for safety. Pt on RA, no acute events this shift. Using urinal to void. Home meds restarted by Dr. Salcido. Status change to Med with Tele. See chart for further details. Will report off to nightshift RN.
[2023-11-12 05:00] VITALS: BP 154/90
[2023-11-12 05:12] LABS: Albumin, Blood 2.7 g/dL (3.4-5.0); Albumin/Globulin Ratio 0.6 (0.8-1.8); Bilirubin, Total 0.3 mg/dL (0.1-1.0); Calcium, Blood 8.7 mg/dL (8.5-10.1); Creatinine, Blood 0.57 mg/dL (0.60-1.20); Globulin, Blood 4.2 g/dL (2.2-4.0); Potassium, Blood 3.3 mmol/L (3.5-5.5); Total Protein, Blood 6.9 g/dL (6.4-8.2)
--- NOTE | 2023-11-12 05:12 | NUR ---
ASSUMPTION OF CARE: ALERT AND ORIENTED 2-4 DEPENDING ON TIME OF THE DAY AND WHEN ASKED, DOES NOT USE THE CALL BUT IS COOPERATIVE WITH CARE WITH SOME GENERALIZED WEAKNESS PLUS SHAKINESS. PATIENT HAS BED ALARM ON FOR SAFETY. FALL RISK. PATIENT AT THIS TIME VERY MINIMAL CIWA, HE IS SLEEPING FOLLOWING COMMANDS. RA AT SPO2 100. SLIGHTLY HYPERTENSIVE, COMFORT CHEST PAIN PRESSURE OR SOB. INCONTINENT VOIDS X 2 FOR SOCIAL WORKER ASSISTANT. NO BM SINCE THE . PATIENT SLEEPING DURING QUESTIONS WILL CONTINUE TO ASSESS AND MONITOR.
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
[2023-11-12 08:07] VITALS: BP 150/95
[2023-11-12 16:26] VITALS: BP 144/118
--- NOTE | 2023-11-12 17:02 | NUR ---
SHIFT SUMMARY PT IS ALERT AND ORIENTED X 3-4. AT TIMES HE ANSWERS ORIENTATION QUESTIONS APPROPRIATELY BUT WILL BE CONFUSED OCCASIONALLY SUCH WITH PLACE AND TIME. HE IS IMPULSIVE AND HAS SET THE BED ALARM OFF MULTIPLE TIMES DURING SHIFT BUT IS PLEASANT WITH CARE AND REDIRECTABLE. HE IS UNSTEADY ON HIS FEET AND IS A 1 PERSON SBA W/ FWW TO BATHROOM. VSS, BP NOTED TO BE HYPERTENSIVE W/ SBP 140'S-150. HE HAS DENIED FEELINGS OF CHEST PAIN/PRESSURE, SOB AND LIGHTHEADEDNESS/DIZZINESS. HE REPORTED FEELINGS OF NAUSEA/ABD DISCOMFORT AT APPROX. 1650, PLEASE SEE EMAR FOR NAUSEA MANAGEMENT. PLEASE SEE [facility] ASSESSMENT/EMAR FOR ALCOHOL WITHDRAWL ASSESSMENT/MANAGEMENT. PG IN [facility] IS INFUSING ZOSYN PER EMAR ORDERS. PT IS CURRENTLY IN RECLINER CHAIR, CHAIR ALARM ON, CALL LIGHT W/IN REACH.
[2023-11-12 21:32] VITALS: BP 164/89
[2023-11-13 03:48] VITALS: BP 152/75
[2023-11-13 04:15] LABS: Hematocrit 40.2 % (37.0-53.0); Mean Corpuscular HGB 31.3 pg (26.0-34.0); Mean Corpuscular HGB Conc 32.3 g/dL (31.5-36.5); Mean Corpuscular Volume 97 fL (80-100); Mean Platelet Volume 9.4 fL (9.1-12.4); Platelet Count 311 K/mm3 (150-400); RDW Coefficient Variation 15.8 % (11.7-14.2); RDW Standard Deviation 56.6 fL (35.1-46.3); Red Blood Cell Count 4.15 M/mm3 (4.30-5.90); White Blood Cell Count 6.02 K/mm3 (4.00-11.30)
[2023-11-13 04:33] LABS: Bun/Creatinine Ratio 17.9 (12.0-20.0); Calcium, Blood 8.5 mg/dL (8.5-10.1); Creatinine, Blood 0.62 mg/dL (0.60-1.20); Potassium, Blood 3.8 mmol/L (3.5-5.5)
--- NOTE | 2023-11-13 06:32 | NUR ---
SHIFT SUMMARY A/Ox3 AND MOSTLY COOPERATIVE WITH CARE. ANSWERS MOST QUESTIONS APPROPRIATELY AND ABLE TO MAKE MOST OF HIS NEEDS KNOWN. CONTINUES TO BE IMPULSIVE AT TIMES, BUT IS EASILY REDIRECTABLE. BED ALARM IN PLACE TO MAINTAIN PATIENT SAFETY. CIWA SCORES FLUCTUATED T/O THE NIGHT FROM 2-8. PRN ETOH WITHDRAW MEDICATIONS GIVEN PER EMAR. CARDIAC, IS MED STATUS NO TELE BUT HR HAS BEEN RANGING 60-70'S WITH NO COMPLAINTS OF CP OR PRESSURE THO THE NIGHT. RESPIRATORY, MAINTAINS SPO2 >95% ON RA WITH NO REPORTS OF SOB OR DYSPNEA WHILE AT REST. GI/, INTERMITTENT EPISODES OF INCONTINENCE. NO BM THIS SHIFT. CONTINUES TO BE UNSTEADY ON HIS FEET BUT ABLE TO AMBULATE TO BSC WITH 1 STAFF ASSIST. ASSESSED PT FOR RISKS OF ANY IGNITION SOURCES WELL BEHAVIORS FOR INCREASED RISKS OF FIRE DANGER. PT EDUCATED ON COMMON SOURCES OF IGNITION WELL NEED TO KEEP A SAFE ENVIRONMENT. PT VOICED UNDERSTANDING. NO NEW ORDERS AT THIS TIME, WILL REPORT TO ONCOMING RN. ABELINO PARTIDA OF THIS NOTE
[2023-11-13 07:41] VITALS: BP 166/92
[2023-11-13 15:06] VITALS: BP 132/107
--- NOTE | 2023-11-13 17:25 | NUR ---
SHIFT SUMMARY; ASSUMED CARE AT 0700. SOMMULENT IN AM BUT WAKES TO VERBAL STIMULI. MORE ACTIVE AND ALERT IN AFTERNOON. WORKED WITH PT/OT, AMBULATED IN HALLWAY WITH PT WITH FWW. CIWAS 5-8 DURING SHIFT. MEDICATED WITH LIBRIUM PER EMAR. A/A/0X3 WITH INTERMITANT CONFUSION, AT TIMES FORGETS WHERE HE IS BUT REDIRECTS EASILY. GOOD PO INTAKE, USES URNIAL, VSS, NO ACUTE CHANGES DURING SHIFT. WILL CONTINUE TO MONITOR AND TREAT UNTIL CHANGE OF SHIFT.
[2023-11-13 19:24] VITALS: BP 163/86
[2023-11-13 23:50] VITALS: BP 159/98
[2023-11-14 02:49] VITALS: BP 152/79
--- NOTE | 2023-11-14 03:59 | NUR ---
SHIFT SUMMARY PT HAS RESTED WELL MOST OF SHIFT. OCCASSIONAL TIMES OF IMPULSIVITY WITH GETTING OUT BED, BUT EASILY REDIRECTED AND REORIENTED. BED ALARM IN PLACE FOR SAFETY. CIWA SCORES <5 THIS SHIFT. LIBRIUM PER EMAR. IV ABX PER ORDERS. VOIDING USING URINAL. VSS. CALL LIGHT WITHIN REACH.
[2023-11-14 07:50] VITALS: BP 155/95
[2023-11-14 08:48] VITALS: BP 152/94
--- NOTE | 2023-11-14 08:56 | NUR ---
Fall Pt stood up from recliner, bed alarm sounding, pt lost balance and fell backwards landing on buttocks. Appears to have reopened scab to left knee, bandaid placed. Pt denies hitting head or having pain to any other part of body. VSS. straightener and aligner Nicole at bedside and notified Dr Borges. Will continue to monitor.
[2023-11-14 16:38] VITALS: BP 156/83
--- NOTE | 2023-11-14 17:42 | NUR ---
SHIFT SUMMARY Pt alert, oriented x2; cooperative with care. Forgetful and impulsive at times. Pt denies pain, chest pain/pressure, sob, nausea, dizziness and numb/tingling. Bp elevated, but stable. Spo2 >90% on ra, breathing even and unlabored. Abd soft, nontender, bm noted today. Other vss. No other acute changes noted. Will continue to monitor.
[2023-11-14 19:32] VITALS: BP 155/82
--- NOTE | 2023-11-14 20:03 | NUR ---
ASSUMPTION OF CARE AFTER RECEIVING REPORT FROM AMAN CASTILLO, THIS RN ASSUMED CARE AT APPROX 1915. PATIENT SITTING IN CHAIR IN ROOM DURING INITIAL ENCOUNTER. IS ALERT AND ORIENTED X2-3. ABLE TO REPORT HIS NAME, DATE OF , AND THAT HE IS IN A HOSPITAL. IS IMPULSIVE IN ROOM, ATTEMPTS TO GET OUT OF BED OR CHAIR MULTIPLE TIMES. IS COOPERATIVE WITH REORIENTATING AND CARE. VSS. ON ROOM AIR, SATS >92%. IS MEDICAL STATUS WITHOUT TELEMETRY. RECEIVED NOTIFICATION OF BED AVAILABILITY. THIS RN GAVE REPORT TO ACCEPTING RN. PATIENT TO BE TRANSFERRED BY PCT's VIA BED. PERSONAL BELONGINGS WITH PATIENT.
--- NOTE | 2023-11-15 05:20 | NUR ---
SHIFT SUMMERY, PT HAS BEEN SLEEPING FOR SEVERAL HRS NOW EARLY IN SHIFT PT VERY RESTLESS GETTING OUT OF BE SETING OFF ALARM. PT VOIDING SEVEAL TIMES AND HAD 2 LIQ BMS THE LAST WAS VERY LG. PT MEDICATED WITH HS MEDS AND PAIN MED ALSO. CALL LIGHT IN REACH BED ALARM ON.
[2023-11-15 06:12] VITALS: BP 150/81
[2023-11-15 08:03] VITALS: BP 155/88
[2023-11-15 08:40] LABS: Bun/Creatinine Ratio 18.5 (12.0-20.0); Calcium, Blood 8.7 mg/dL (8.5-10.1); Creatinine, Blood 0.6 mg/dL (0.60-1.20); Magnesium, Blood 2.1 mg/dL (1.6-2.4); Phosphorus, Blood 4.2 mg/dL (2.5-4.9); Potassium, Blood 3.5 mmol/L (3.5-5.5)
[2023-11-15 15:21] VITALS: BP 170/88
--- NOTE | 2023-11-15 18:33 | NUR ---
PATIENT A/OX2-3 THIS SHIFT. PLEASANTLY CONFUSED THROUGHOUT THE DAY, REDIRECTABLE. UP WITH 1PA, FWW AND GB, GAIT UNSTEADY. VSS, ON RA. MEDICATED WITH FIORICET AND IMITREX FOR MIGRAINE WITH GOOD RELIEF. NORCO GIVEN X2 FOR BACK/GENERALIZED PAIN. PATIENT BECAME MORE ACTIVE AND IMPULSIVE THIS EVENING AND LIBRIUM GIVEN X1 FOR ETOH WITHDRAWL. INCONTINENT OF BOWEL THIS AFTERNOON, USING URINAL WITH ASSISTANCE TO VOID. POWERGLIDE TO JUDSON WNL. WORKING WITH PT/OT.
[2023-11-15 19:21] VITALS: BP 161/95
[2023-11-15] MEDS ORDERED: QUETIAPINE FUMA5012 PO (22:02)
--- NOTE | 2023-11-16 05:29 | NUR ---
FAMILY DAY CARER SUMMARY BP ELEVATED, OTHERWISE VSS. REVCEIVED PAIN MED - WILL MONITOR. RECEIVING ANTIBIOTICS IV Q 6 HRS FOR PNA. LUNG SOUNDS DIMINISHED ON RIGHT SIDE PER AUSCULTATION. UP WITH ASSIST AND WALKER TO BATHROOM. HAS BEEN RESTING QUIETLY THROUGH NOCT WITH FEW INTERRUPTIONS. CALL LIGHT IN REACH. RAILS UP X3 FOR SAFETY. SITTER AT BEDSIDE FOR SAFETY. WILL CONTINUE TO MONITOR
[2023-11-16 06:26] VITALS: BP 146/93
[2023-11-16 07:20] VITALS: BP 169/98
--- NOTE | 2023-11-16 13:23 | NUR ---
PT STATED THAT HE HAD DIFFICULTY SWALLOWING THE MEAT ON HIS LUNCH TRAY, STATING THAT HE FELT IT WAS BECOMING CAUGHT IN HIS THROAT. PT IS A ONE-PERSON ASSIST TO THE BATHROOM AND FOR AMBULATION, UNSTEADY ON HIS FEET. PT USING A FWW AND GAIT BELT. PT INCONTINENT OF BLADDER AND BOWEL. DISCUSSED WITH HOSPITALIST, VERBAL ORDER FOR SPEECH EVAL RECEIVED. ORDER PLACED, CALL MADE TO SPEECH THERAPIST AND MESSAGE LEFT.
[2023-11-16] MEDS ORDERED: B-1100 M2 PO (14:19)
[2023-11-16] MEDS ORDERED: AMOCLA875 PO (14:19)
[2023-11-16] MEDS ORDERED: VISBIOME 112.51 EACH PO (14:19)
[2023-11-16] MEDS ORDERED: MULVITA PO (14:19)
[2023-11-16 17:42] VITALS: BP 174/91
[2023-11-16 19:39] VITALS: BP 175/88
--- NOTE | 2023-11-16 19:55 | NUR ---
SHIFT SUMMARY: CARMEN IS A&OX2, HE IS ABLE TO CORRECTLY STATE HIS NAME AND THE PRESIDENT. PT THOUGHT THAT HE WAS AT [facility] AND THAT THE DATE IS . PT HAD A SPEECH EVALUATION TODAY AND HAS NEW ASPIRATION PRECAUTION ORDERS. HE IS A ONE-PERSON ASSIST, INCONTINENT OF BOWEL AND, AT TIMES, BLADDER. ATTENDS IN PLACE. POWERGLIDE TO LEFT UPPER ARM PATENT. PT STATES THAT HE LIVES ALONE AND ALL OF HIS FAMILY LIVES OUT OF THE AREA AND IS UNABLE TO ASSIST HIM. DISCUSSED WITH HOSPITALIST AND CARE COORDINATION. PT STATED THAT HE IS UNABLE TO CARE FOR HIMSELF AT HOME. 1:1 SITTER AT BEDSIDE. PT HAS BEEN COOPERATIVE WITH CARE TODAY, UNSTEADY ON HIS FEET WITH AMBULATION BUT WAS ABLE TO WALK IN THE HALLWAY TWICE THIS SHIFT, WHICH PT REPORTED "WORE ME OUT". HE IS SITTING UP IN THE RECLINER WITH THE CALL LIGHT IN REACH. REPORT WAS GIVEN TO GALLERY OR MUSEUM TECHNICIAN RN.
[2023-11-17 03:49] VITALS: BP 181/90
--- NOTE | 2023-11-17 04:14 | NUR ---
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 CONTINUE TO RECEIVE IV ANTIBIOTICS Q 6 HR FOR PNA. LUNG SOUNDS REMAIN DIMINISHED IN RIGHT LOWER LOBES. PAIN MEDS ADMIN FOR HEADACHE, ETC. SEE MAR FOR DETAILS. NECTAR THICK LIQUIDS AND HOB ELEVATED TO 90 DEGREES WHEN EAING/DRINKING FOR ASPIRATION PRECAUTIONS. SITTER AT BEDSIDE AND RAILS UP X 2 FOR SAFETY. CALL LIGHT IN REACH. HAS BEEN RESTING QUIETLY WITH FEW INTERRUPTIONS.
[2023-11-17 08:05] VITALS: BP 163/87
[2023-11-17 16:23] VITALS: BP 148/73
--- NOTE | 2023-11-17 17:52 | NUR ---
PT IS ALERT AND ORIENTED X3-4. ABLE TO MAKE NEEDS KNOWN, IMPAIRED GAIT. 1-2 PERSON ASSIST WITH FWW AND GAIT BELT. NO ACUTE CHANGES THIS SHIFT. PT REPORTS PAIN WITH DEEP BREATH. RARELY BEEN IMPULSIVE THIS SHIFT. SITTER OUTSIDE DOOR . APPEARS THE IMPULSIVENESS MAY BE MANAGED WITH BED ALARM. NO ACUTE CHANGES THIS SHIFT. CONTINUING WITH IV ANTIBIOTICS. NECTAR THICK LIQUIDS.
[2023-11-17 20:59] VITALS: BP 172/104
--- NOTE | 2023-11-17 23:33 | NUR ---
AMAN RN COORDINATOR DC SITTER 1:1 AND MOVED SITTER TO PCU. BED ALARM ON. [facility]
--- NOTE | 2023-11-18 04:45 | NUR ---
SHIFT SUMMARY PATIENT HAD NO ACUTE CHANGES. AXOX 3 AND ONE ASSIST WITH GB/FWW TO BATHROOM. UNSTEADY GAIT. TAKES MEDICATION WHOLE WITH APPLESAUCE. POWERGLIDE LAKESHIA ARM INTACT. IV ABXS INFUSED. HYPERTENSIVE. DENIES CHEST PAIN, SOB, AND N/V. SITTER 1:1 DC'D 23:30. MOSTLY SLEPT. OOB X TWO ACTIVATING BED ALARM. CALL LIGHT IN REACH. BED IN LOWEST POSITION AND ALARM ON. WILL CONTINUE TO MONITOR UNTIL DAY SHIFT NURSE ASSUMES CARE.
[2023-11-18 05:02] VITALS: BP 169/96
[2023-11-18 07:21] VITALS: BP 126/86
[2023-11-18 15:43] VITALS: BP 158/82
--- NOTE | 2023-11-18 16:26 | NUR ---
NO ACUTE CHANGES. PT IS ALERT AND ORIENTED X 3-4. BARROW AND FORGETFUL. IMPULSIVE. WILL GET OUT OF BED AND CHAIR WITHOUT CALLING AND HE MOVES VERY FAST AND WITH AN UNSTEADY GAIT. HE IS CALM AND COOPERATIVE WITH CARES. R.A. ABLE TO MAKE NEEDS KNOWN. BED AND CHAIR ALARMS ARE ON.
[2023-11-18 19:21] VITALS: BP 149/95
[2023-11-18 20:08] VITALS: BP 171/87
[2023-11-18 20:22] VITALS: BP 171/87
--- NOTE | 2023-11-18 21:18 | NUR ---
PATIENT HAVING MULTIPLE OUT OF BED ATTEMPTS ACTIVATING BED ALARM . NOT FOLLOWING DIRECTIONS AND DOES NOT USE CALL LIGHT. HOSPITALIST DR KHAN ORDERED GIAN VEST FOR FALL RISK. TM.
[2023-11-19 03:14] VITALS: BP 141/79
--- NOTE | 2023-11-19 04:25 | NUR ---
SHIFT SUMMARY PATIENT HAD MULTIPLE OUT OF BED ATTEMPTS ACTIVATING BED ALARM. SITTER 1:1 DC'D LAST NOC SHIFT. IMPULSIVE, NOT USING CALL LIGHT, OR FOLLOWING DIRECTIONS. HOSPITALIST DR DAVALOS ORDERED GIAN VEST FOR FALL RISK. AXOX 3 AND FORGETFUL. POWERGLIDE LAKESHIA ARM INTACT. IV ABXS INFUSED. ON ROOM AIR. TAKES MEDICATION WHOLE IN APPLESAUCE. VSS/AFEBRILE. DENIES CHEST PAIN, SOB, AND N/V. CALL LIGHT IN REACH. BED IN LOWEST POSITION AND ALARM ACTIVATED. WILL CONTINUE TO MONITOR UNTIL DAY SHIFT NURSE ASSUMES CARE.
[2023-11-19 15:51] VITALS: BP 154/87
--- NOTE | 2023-11-19 17:19 | NUR ---
PT REMAINS A FALL RISK, HE IS IMPULSIVE AND DOES NOT CALL APPROPRIATELY. GIAN VEST IN PLACE. PT IS CALM AND COOPERATIVE OTHERWISE AND ABLE TO MAKE NEEDS KNOWN. HE IS CURRENTLY LYING IN BED AND APPEARS TO BE COMFORTABLE. ALERT AND ORIENTED X4. NO CHANGES THIS SHIFT.
[2023-11-19 19:14] VITALS: BP 156/86
--- NOTE | 2023-11-20 04:21 | NUR ---
SHIFT SUMMARY PATIENT HAD NO ACUTE CHANGES. AXOX 2-3 WITH CONFUSION WANTING TO GO GET HIS OWN COFFEE. FALL RISK. GIAN VEST PER ORDERS. POWERGLIDE LAKESHIA ARM INTACT. IV ABXS INFUSED. ON ROOM AIR. ONE ASSIST TO BR GB/FWW. VSS/AFEBRILE, DENIES CHEST PAIN, SOB, AND N/V. CALL LIGHT IN REACH. BED IN LOWEST POSITION AND ALARM ACTIVATED. WILL CONTINUE TO MONITOR UNTIL DAY SHIFT NURSE ASSUMES CARE.
[2023-11-20 05:10] VITALS: BP 169/88
[2023-11-20 07:32] VITALS: BP 154/88
[2023-11-20 14:43] VITALS: BP 158/89
--- NOTE | 2023-11-20 16:41 | NUR ---
SHIFT SUMMARY PT A&O2-3 AND ANSWES QUESTIONS APPROPRIATELY. PT IN GIAN VEST AT START OF SHIFT DUE TO IMPULSIVE BEHAVIORS AND FALL RISK. PT EDUCATION GIVEN REGARDING FALL RISKS AND THE IMPORTANCE OF UTELIZING THE CALL LIGHT TO RECEIVE HELP WITH ANY TRANSFERS. PT VERBALIZED UNDERSTANDING OF CONDITIONS FOR REMOVING GIAN. NON-VIOLENT RESTRAINTS REMOVED AT 1200, NO ADVERSE EFFECTS FROM RESTRAINTS NOTED DURING SHIFT. VSS. NO ACUTE EVENTS DURING SHIFT. PT LEFT IN A POSITION OF SAFETY WITH FALL PRECAUTIONS IN PLACE AND CALL LIGHT WITHIN REACH.
[2023-11-20 19:29] VITALS: BP 160/84
[2023-11-21 03:33] VITALS: BP 151/93
--- NOTE | 2023-11-21 04:44 | NUR ---
SHIFT SUMMARY CARMEN WAS ALERT AND ORIENTED X 3-4 ON ASSESSMENT, HE IS PLEASANT AND MOSTLY COOPERATIVE. HE WON'T USE HIS CALL LIGHT TO GO TO THE BATHROOM. NO ACUTE EVENTS, NO CHANGES IN CONDITION NOTED. UNEVENTFUL SHIFT, PT TOOK HIS 2100 MEDS AND WENT TO SLEEP. PT RESTING IN BED AT A LOW POSITION WITH THE CALL LIGHT IN REACH AND THE BED ALARM IN PLACE.
[2023-11-21 07:53] VITALS: BP 130/89
[2023-11-21 14:39] VITALS: BP 165/93
[2023-11-21 19:44] VITALS: BP 150/87
--- NOTE | 2023-11-22 04:50 | NUR ---
SHIFT SUMMARY PT A&O3-4 AND CALLS APPROPRIATELY. PT COMPLAINS OF A HEADACHE HE VERBALIZED STATERED THE 25TH. PT MEDICATED PER EMAR FOR HEADACHE. PT SLEPT FOR MOST OF SHIFT. NO ACUTE EVENTS OCCURED DURING SHIFT. VSS. PT LEFT IN A POSITION OF SAFETY WITH APPROPRIATE FALL PRECAUTIONS IN PLACE AND CALL LIGHT IN REACH.
[2023-11-22 07:26] VITALS: BP 155/99
[2023-11-22 16:23] VITALS: BP 175/95
--- NOTE | 2023-11-22 19:26 | NUR ---
PT IS A/OX3, PLEASANT AND COOPERATIVE. PT IS UP WITH MINIMAL ASSIST. PT APPEARS TO BE BREATHING EASILY WITH OUT OXYGEN. PT DENIED ANY PAIN. PT WAS UP AND AMBULATED OUT INTO THE FALK. PT IS SLIGHTLY UNSTEADY ON HIS FEET. CALL LIGHT IN REACH. BED ALARM ON FOR SAFETY
[2023-11-22 20:27] VITALS: BP 168/83
--- NOTE | 2023-11-23 04:29 | NUR ---
SHIFT SUMMARY PT A&O X3, COOPERATIVE WITH CARE. PT HAS UNSTEADY GATE, 1P ASSIST WITH FFW AND GB. POWERGLIDE TO JUDSON. DENIES ANY CP OR SOB. NO TELE ON ROOM AIR. CONTINENT OF BOWEL/BLADDER. BED ALARM IN PLACE PT CAN BE IMPULSIVE WHEN NEEDING TO USE TO RESTROOM. PT KNOWS HOW TO USE CALL LIGHT TO CALL FOR NEEDS. WILL CONTINUE TO MONITOR UNTIL END OF SHIFT.
[2023-11-23 06:02] VITALS: BP 155/88
[2023-11-23 07:17] VITALS: BP 159/91
[2023-11-23 16:39] VITALS: BP 162/89
--- NOTE | 2023-11-23 18:04 | NUR ---
SHIFT SUMMARY- PT IS ALERT, PLESANT AND COOPERATIVE. POWERGLIDE WAS PULLED THIS SHIFT. HE WAS STARTED ON EYE OINTMENT FOR REDNESS IN THE RIGHT EYE. HE WORKED WITH PT AND OT THIS SHIFT. HIS BED IS IN HE LOW POSITON AND CALL LIGHT IS WITHIN REACH.
[2023-11-23 20:12] VITALS: BP 155/78
--- NOTE | 2023-11-24 04:22 | NUR ---
SHIFT SUMMARY PT IS A&O X3, CALM AND COOPERATIVE WITH CARE. PT CAN BE IMPULSIVE WHEN GETTING UP TO USE THE RESTROOM. 1P ASSIST WITH GB AND FWW. NO IV ASSESS ORDERED. EYE OINTMENT APPLIED TO RIGHT EYE WHICH APPEARS RED AND WAS CRUSTED UPON WAKING. CLEANED WITH WARM CLOTH. PILLS TAKEN WHOLE WITH APPLESAUCE. BED ALARM IN PLACE AND BED KEPT IN THE LOWEST POSITION.
[2023-11-24 04:30] VITALS: BP 148/78
[2023-11-24 07:19] VITALS: BP 137/83
[2023-11-24] MEDS ORDERED: ERYT.5TO RIGHTEYE (13:04)
--- NOTE | 2023-11-24 13:51 | NUR ---
DISCHARGE MR LY WAS TRANFERED BY [facility] TO [facility] AT 1345H[facility]. REPORT CALLED TO NICKY THE ADMISSIONS NURSE. MR LY C/O 4 HEADACHE THIS MORNING THAT HE SAID IS HIS BASELINE AND HE DECLINED WANTING ANY PAIN MEDICATIONS. HE WAS ORIENTATED TO QUESTIONS, FORGETFUL. BED ALARM USED THIS AM PT DID NOT USE THE CALL LIGHT BEFORE GETTING OUT OF BED. GAIT WAS PRETTY STEADY. NO QUESTIONS OR CONCERNS VOICED PRIOR TO TRANSFER.
== END 2023-11-24 13:42 | DRG 871 ==
LOC: ER 00:16 → ICUE 06:06 → MEDS 06:06 → ERHOLD 06:06 → ICUE 09:07 → PCU 11-12 04:49 → MEDS 11-14 20:15 → ENPENDDIS 11-16 13:47 → MEDS 11-24 13:42
PROVIDERS: Emergency Medicine; Hospitalist; Internal Medicine; Internal Medicine Critical Care Medicine; ADMIT Internal Medicine
PROC: 3E03329 Introduction of Other Anti-infective into Peripheral Vein, Percutaneous Approach (ICD-10-PCS; principal; 2023-11-09)
PROC: HZ2ZZZZ Detoxification Services for Substance Abuse Treatment (ICD-10-PCS; 2023-11-09)
DX: A41.9 Sepsis, unspecified organism (principal); J18.9 Pneumonia, unspecified organism; J69.0 Pneumonitis due to inhalation of food and vomit; R65.21 Severe sepsis with septic shock; J44.0 Chronic obstructive pulmonary disease with (acute) lower respiratory infection; F10.239 Alcohol dependence with withdrawal, unspecified; E87.1 Hypo-osmolality and hyponatremia; E87.20 Acidosis, unspecified; H10.9 Unspecified conjunctivitis; R13.12 Dysphagia, oropharyngeal phase; G43.909 Migraine, unspecified, not intractable, without status migrainosus; I10 Essential (primary) hypertension; F32.A Depression, unspecified; J43.9 Emphysema, unspecified; F41.9 Anxiety disorder, unspecified; E86.0 Dehydration; R79.1 Abnormal coagulation profile; F17.200 Nicotine dependence, unspecified, uncomplicated; E87.6 Hypokalemia; Z78.1 Physical restraint status; Z98.1 Arthrodesis status; Z86.73 Personal history of transient ischemic attack (TIA), and cerebral infarction without residual deficits; Z91.81 History of falling; Z91.51 Personal history of suicidal behavior; Z88.8 Allergy status to other drugs, medicaments and biological substances; Z11.52 Encounter for screening for COVID-19; Z71.6 Tobacco abuse counseling; Z71.41 Alcohol abuse counseling and surveillance of alcoholic
CPT/HCPCS: 0241U; 36415; 71045; 71275; 80048; 80053; 80202; 81001; 82803; 83605; 83735; 84100; 84484; 85025; 85027; 85379; 85610; 85730; 87040; 87070; 87205; 92526; 92610; 93005; 93010; 94640; 94664; 94760; 96361; 96365-59; 96367-59; 96375-59; 96376-59; 97110; 97116; 97161; 97165; 97530; 97535; 99285-25; A9270; C1751; J0360; J0692; J0696; J1644; J2060; J2250; J2405; J2543; J2560; J2765; J3370; J3411; J3480; J7030; J7050; Q9967

== ENCOUNTER 2023-12-06 20:36 | Emergency (ER) | payer OTHER, MEDICARE ==
[~2023-12-06] VITALS: Ht 182.9 cm; Wt 67.1 kg
[~2023-12-06 20:36] MED LIST changes: +B-1100 M2 PO; +BUPROPION XL150 M1 PO; +ERYT.5TO RIGHTEYE; +HYDHCL25 PO; +QUETIAPINE FUMA5012 PO; +REMERON1510 PO; +SUMA25 PO; +VALACYCLOVIR1000 MG PO; +ZOLOFT10013 PO
[2023-12-06 21:11] LABS: BASOPHILS ABSOLUTE AUTO 0.09 K/mm3 (0.00-0.23); BASOPHILS PERCENT AUTO 1 % (0-2); EOSINOPHILS ABSOLUTE AUTO 0.24 K/mm3 (0.00-0.68); EOSINOPHILS PERCENT AUTO 3 % (0-6); Hematocrit 40.3 % (37.0-53.0); Hemoglobin 13.7 g/dL (13.5-17.5); IMMATURE GRAN ABSOLUTE AUTO 0.02 K/mm3 (0.00-0.10); IMMATURE GRAN PERCENT AUTO 0 % (0-1); LYMPHOCYTES ABSOLUTE AUTO 2.08 K/mm3 (0.84-5.20); LYMPHOCYTES PERCENT AUTO 25 % (21-46); MONOCYTES PERCENT AUTO 12 % (4-13); Mean Corpuscular HGB 30.6 pg (26.0-34.0); Mean Corpuscular Volume 90 fL (80-100); Mean Platelet Volume 9.2 fL (9.1-12.4); NEUTROPHILS ABSOLUTE AUTO 4.96 K/mm3 (1.96-9.15); NEUTROPHILS PERCENT AUTO 59 % (41-73); Platelet Count 313 K/mm3 (150-400); RDW Coefficient Variation 13.6 % (11.7-14.2); RDW Standard Deviation 45.3 fL (35.1-46.3); Red Blood Cell Count 4.47 M/mm3 (4.30-5.90); White Blood Cell Count 8.39 K/mm3 (4.00-11.30)
[2023-12-06 21:33] LABS: Albumin, Blood 3.4 g/dL (3.4-5.0); Albumin/Globulin Ratio 0.8 (0.8-1.8); Bilirubin, Total 0.1 mg/dL (0.1-1.0); Bun/Creatinine Ratio 15.9 (12.0-20.0); Calcium, Blood 8.8 mg/dL (8.5-10.1); Creatinine, Blood 0.44 mg/dL (0.60-1.20); Potassium, Blood 3.9 mmol/L (3.5-5.5); Total Protein, Blood 7.4 g/dL (6.4-8.2)
[2023-12-06 23:45] VITALS: BP 128/57
[2023-12-07] MEDS ORDERED: Ibuprofen600 MG PO (06:12)
[2023-12-07] MEDS ORDERED: LIDO700A20 TOP (06:12)
== END 2023-12-07 | disposition home or self-care (01) ==
LOC: ER 20:36
PROVIDERS: Student in an Organized Health Care Education/Training Program
DX: S01.01XA Laceration without foreign body of scalp, initial encounter (principal); W18.30XA Fall on same level, unspecified, initial encounter; F10.129 Alcohol abuse with intoxication, unspecified; J43.9 Emphysema, unspecified; I10 Essential (primary) hypertension; G40.909 Epilepsy, unspecified, not intractable, without status epilepticus; F17.210 Nicotine dependence, cigarettes, uncomplicated; Z88.8 Allergy status to other drugs, medicaments and biological substances; Z79.899 Other long term (current) drug therapy
CPT/HCPCS: 12001; 70450; 72125; 73560-LT; 80053; 85025; 93005; 93010; 99284-25

== ENCOUNTER 2023-12-08 16:10 | Emergency (ER) | payer OTHER, MEDICARE ==
[~2023-12-08] VITALS: Ht 182.9 cm; Wt 83.9 kg
[~2023-12-08 16:10] MED LIST changes: +Ibuprofen600 MG PO
[2023-12-08 21:38] VITALS: BP 140/72
== END 2023-12-08 21:52 | disposition home or self-care (01) ==
LOC: ER 16:10
DX: S00.11XA Contusion of right eyelid and periocular area, initial encounter (principal); M54.50 Low back pain, unspecified; I10 Essential (primary) hypertension; G40.909 Epilepsy, unspecified, not intractable, without status epilepticus; J43.9 Emphysema, unspecified; Z86.73 Personal history of transient ischemic attack (TIA), and cerebral infarction without residual deficits; G43.909 Migraine, unspecified, not intractable, without status migrainosus; F10.10 Alcohol abuse, uncomplicated; F17.210 Nicotine dependence, cigarettes, uncomplicated; R29.6 Repeated falls; Z79.899 Other long term (current) drug therapy; W01.0XXA Fall on same level from slipping, tripping and stumbling without subsequent striking against object, initial encounter; Y92.002 Bathroom of unspecified non-institutional (private) residence as the place of occurrence of the external cause; Z88.8 Allergy status to other drugs, medicaments and biological substances
CPT/HCPCS: 70450; 70486; 72100; 99284-25; A9270

== ENCOUNTER 2023-12-28 02:47 | Inpatient (IN) | payer OTHER ==
[~2023-12-28] VITALS: Ht 182.9 cm; Wt 75.8 kg
[2023-12-28] VITALS (50 sets, daily range): BP systolic 72–159; BP diastolic 48–109
[2023-12-28 03:37] LABS: BASOPHILS ABSOLUTE AUTO 0.03 K/mm3 (0.00-0.23); BASOPHILS PERCENT AUTO 0 % (0-2); EOSINOPHILS ABSOLUTE AUTO 0.01 K/mm3 (0.00-0.68); EOSINOPHILS PERCENT AUTO 0 % (0-6); Hematocrit 35.1 % (37.0-53.0); Hemoglobin 12.4 g/dL (13.5-17.5); IMMATURE GRAN ABSOLUTE AUTO 0.04 K/mm3 (0.00-0.10); IMMATURE GRAN PERCENT AUTO 0 % (0-1); LYMPHOCYTES PERCENT AUTO 4 % (21-46); MONOCYTES ABSOLUTE AUTO 0.92 K/mm3 (0.16-1.47); MONOCYTES PERCENT AUTO 7 % (4-13); Mean Corpuscular HGB 31.6 pg (26.0-34.0); Mean Corpuscular HGB Conc 35.3 g/dL (31.5-36.5); Mean Corpuscular Volume 90 fL (80-100); Mean Platelet Volume 9.1 fL (9.1-12.4); NEUTROPHILS ABSOLUTE AUTO 11.35 K/mm3 (1.96-9.15); NEUTROPHILS PERCENT AUTO 88 % (41-73); Platelet Count 241 K/mm3 (150-400); RDW Coefficient Variation 14.2 % (11.7-14.2); RDW Standard Deviation 45.9 fL (35.1-46.3); Red Blood Cell Count 3.92 M/mm3 (4.30-5.90); White Blood Cell Count 12.85 K/mm3 (4.00-11.30)
[2023-12-28] MEDS ORDERED: HYDHCL25 (03:38)
[2023-12-28 03:58] LABS: Alanine Aminotransfer (ALT/SGP 25 U/L (12-78); Albumin, Blood 3.4 g/dL (3.4-5.0); Albumin/Globulin Ratio 0.9 (0.8-1.8); Alk Phos 106 U/L (50-136); Anion Gap 6 mmol/L (6-16); Aspartate Aminotrans (AST/SGOT 30 U/L (12-37); Bilirubin, Total 0.7 mg/dL (0.1-1.0); Blood Urea Nitrogen 13 mg/dL (8-24); Bun/Creatinine Ratio 29.5 (12.0-20.0); CO2, Blood 25 mmol/L (21-32); Calcium, Blood 8.3 mg/dL (8.5-10.1); Chloride, Blood 95 mmol/L (98-108); Creatinine, Blood 0.44 mg/dL (0.60-1.20); Globulin, Blood 3.6 g/dL (2.2-4.0); Glomerular Filtration Rate 118 (60-); Glucose, Blood 132 mg/dL (70-99); Sodium, Blood 126 mmol/L (136-145)
[2023-12-28 05:47] LABS: Thyroid Stimulating Hormone 0.958 uIU/mL (0.360-4.800)
[2023-12-28 05:54] LABS: Ethanol (Alcohol), Blood, Med <3 mg/dL
[2023-12-28 11:08] LABS: Source, Urine Foley catheter
[2023-12-28 11:23] LABS: Appearance, Urine Clear (Clear); Bilirubin, Urine Neg (Neg); Blood, Urine Neg (Neg); Color, Urine Yellow (P-Yellow); Glucose Qualitative, Urine Neg (Neg); Ketones, Urine 2+ (Neg); Leukocyte Esterase, Urine Neg (Neg); Nitrite, Urine Neg (Neg); Protein, Urine 1+ (Neg); Urobilinogen, Urine 1+ (Normal)
[2023-12-28 11:49] LABS: U Amphetamine Screen Not Detected; U Barbituate Screen Not Detected; U Benzodiazapine Screen DETECTED; U Buprenorphine Screen Not Detected; U Cannabinoids Screen Not Detected; U Cocaine Screen Not Detected; U Methadone Screen Not Detected; U Methamphetamine Screen Not Detected; U Opiates Screen Not Detected; U Oxycodone Screen Not Detected; U Phencyclidine Screen Not Detected
--- NOTE | 2023-12-28 11:49 | NUR ---
PT ADMITTED TO ICU FROM ER FOR SYNCOPE EPISODE, FALL RESULTING IN FX RIGHT HIP, ACUTE ETOH W/D. PT ADMITTED AT 0830, PT INITIALLY PCU STATUS AND CHANGED TO ICU STATUS. DR YUSUF AT BEDSIDE FOR ADMIT. PRECEDEX ORDERED FOR ACUTE ETOH W/D. PT ABLE TO STATE NAME AND BIRTHDATE ONLY. PT W ACTIVE AUDITORY AND VISUAL HULLCINATIONS. PT MOVING/THRASHING CONSTANTLY IN BED. PT C/O PAIN TO RIGHT HIP, HEADACHE, AND SOME NAUSEA. PT W SEVERE TREMORS, PT DIAPHORTIC, DRENCHED IN SWEAT. CIWA>20. ATIVAN GIVEN. PRECEDEX STARTED AND TITRATED UP TO 0.6MCG. CONDOM CATH INITIALLY PLACED ON PT. BLADDER SCAN SHOWED 500CC AFTER PT HAD NOT VOIDED. DR YUSUF CALLED. 14F HARRIS CATH PLACED FOR ACUTE RETENTION, HIP FX. PT HAS MULTIPLE CUTS AND BRUISING T/O. LAC TO FOREHEAD, OPEN SORE TO LEFT KNEE, LARGE BRUISE TO LEFT HIP. SCRAPS TO LEFT ELBOW AND L SHOULDER AREA. RIGHT HIP RED, SWOLLEN, WITH VISIBLE DEFORMITY. CIRC CHECK TO BLE WNL; WARM, GOOD CAP REFILL, +2 PULSES TO DP. O2 PLACED AT 2L VIA N/C W ETCO2 MONITORING. BP STABLE. POWERGLIDE PLACED TO JUDSON, 18G PLACED TO HELEN. PT PLACED IN RESTRAINTS HE WAS CONSTANTLY PULLING AT LINES AND ATTEMPTING TO GET OOB. SITTER CALLED. DR SAWYER CONSULTED ON PT AND WAS AT BEDSIDE TO SEE PT AT 1135. 4V XR ORDERED ON BILAT HIP AND RIGHT FEMUR; COMPLETE. PLAN IS TO TAKE PT TO SURGERY LATER TODAY PER DR SAWYER.
--- NOTE | 2023-12-28 12:47 | NUR ---
PT'S BELONGINGS REVIEWED W FLIGHT TEACHER. FRONT END ARCHITECT AND VAP FOUND IN PANTS; PLACED IN LOCKED BOX. NO MONEY OR WALLET ON PT; WATCH PLACED IN LOCK BOX. COAT, PANTS, SHIFT, UNDERWEAR, AND SOCKS PLACED IN PT BELONGING BAG. PT'S FRIEND IN TO VISIT; ATTEMPTED TO LEAVE PACK OF CIGARETTES FOR PT; VISITOR EDUCATED ON NO SMOKING POLICY; CIGARETTES SENT HOME WITH VISITOR.
--- NOTE | 2023-12-28 13:24 | NUR ---
SATS BRIEFLY DROPPED TO 87%. RASS -3. ETCO2 28-30. PT ABLE TO RESPOND WITH LIGHT SHAKE. PRECEDEX DECREASED TO 0.3MCG. PT'S SON LISBETH CALLED AND GIVEN UPDATE. LISBETH WOULD LIKE PT TO RECIEVE FULL CARE WITH SURGERY IF INDICATED. DAY SURGERY GIVEN UPDATE WITH LISBETH LY'S PHONE NUMBER. .
--- NOTE | 2023-12-28 14:37 | NUR ---
ETCO2 DROPPING BELOW 20, PT AWAKENS TO HARD SHAKE AND ABLE TO TAKE DEEP BREATH. RASS -4. PT HYPOTENSIVE W MAP AROUND 60. PRECEDEX WAS STOPPED AT 1330. RT CALLED; NASOPHARYNGEAL PLACED. O2 AT 4L. JAW THRUST DID NOT IMPROVE ETCO2. DR YUSUF CALLED. DR YUSUF AT BEDSIDE, 1L LR BOLUS ORDERED. BP AND ETCO2 TRENDING UP. SATS HAVE REMAINED >90%, RESP REMAINED OVER 14 BUT WERE SHALLOW AT TIMES. PT CONTINUES TO AWAKEN BRIEFLY TO STIMULI.
--- NOTE | 2023-12-28 15:51 | NUR ---
PT BECOMING MORE RESTLESS, REMAINS SOMNOLENT. LR BOLUS COMPLETED, BP STABLE MAP AROUND 120-130'S. ETCO2 26-34 ( THIS IS A READING WITH ONLY ONE PRONG TO THE NPA). RESP 16-20. SATS 100% ON 4L.
--- NOTE | 2023-12-28 15:58 | NUR ---
DR YUSUF IN TO CHECK ON PT. PT SITTING UP IN BED, MUMBLING, HALLUCINATING THAT HE IS SMOKING A CIGARETTE. PT PULLING AT LINES/LEADS. PRECEDEX RESTARTED AT 0.2MCG.
--- NOTE | 2023-12-28 16:08 | NUR ---
PT AWAKE, RESTLESS. CIWA 18. PT STATES HE HAS A MIGRAINE, C/O NAUSEA, HAS TREMORS AND IS ACTIVELY HALLUCINATING. PRECEDEX WAS RECENTLY RESTARTED AT 0.2MCG, WILL MEDICATE W ATIVAN IS RESTLESS INCREASES.
--- NOTE | 2023-12-28 16:44 | NUR ---
BED ALARM ACTIVATED, PT ROLLING UP ON BEDRAIL. PT WAKE, CONFUSED, STATES "I'M SCARED". ATIVAN 1MG GIVEN FOR ELEVATED CIWA.
--- NOTE | 2023-12-28 18:28 | NUR ---
PT AWAKE AND RESTLESS, DROWSY, ABLE TO GIVE MUMBLED ANSWERS W SOME CONFUSION. EARLIER PT C/O NAUSEA, ZOFRAN GIVEN. NAUSEA IMPROVED. PT C/O PAIN TO RIGHT HIP, TORADOL GIVEN. PRECEDEX AT 0.3MCG, ATIVAN 2MG GIVEN FOR CIWA 20. FLUIDS CHANGE TO LR AT 150CC/HR. 1600 OUT IN URINE THIS SHIFT. DR SAWYER STOPPED BY TO CHECK ON PT. PT ON ADD ON SCHEDULE FOR TOMORROW PENDING ANESTHESIA APPROVAL. PT'S SON UPDATED.
--- NOTE | 2023-12-28 19:43 | NUR ---
ASSUMED CARE PT AROUSES TO VERBAL STIMULI/CONFUSED. DIFFICULT TO DISCERN WHAT PT IS SAYING, DOES NOT APPEAR ORIENTED TO PLACE AND SITUATION. AGITATED AT TIMES, BUT REDIRECTABLE. DR BROWN AT BEDSIDE AT START OF SHIFT.
--- NOTE | 2023-12-28 21:00 | NUR ---
UPDATE DR BROWN CALLED D/T PT BECOMING MORE OBTUNDED AND LOW ETC02. PRECEDEX ON SB (SEE FLOWSHEET). NOTIFIED DR BROWN THAT INITIALLY AT START OF SHIFT PT HAD BEEN AGITATED MOVING ARMS AND LEGS AND ATTEMPTING TO CLIMB OUT OF BED; AND THAT 2MG OF ATIVAN GIVEN PER [facility] PROTOCOL/EMAR. ORDERS FOR VBG AND TO NOTIFY FOR ANY FURTHER CHANGES.
[2023-12-28 21:33] LABS: Base Excess Venous 1.9 mmol/L; Bicarbonate Venous 25.9 mmol/L (24.0-30.0); PCO2 Venous 41.8 mmHg (38-42); pH Blood Venous 7.41 (7.34-7.37)
--- NOTE | 2023-12-28 21:36 | NUR ---
UPDATE PT CONTINUES TO BE OBTUNDED, BUT IS MORE EASILY AROUSABLE. INITIALLY STERNAL RUB WOULD ONLY PRODUCE A MOAN FROM PT; NOW PT RAISES HEAD AND MUMBLES WORDS. CONTINUING TO MONITOR.
--- NOTE | 2023-12-28 23:20 | NUR ---
UPDATE PT AROUSING TO VERBAL STIMULI. DENIES HALLUCINATIONS AT THIS TIME. GIVING SHORT ONE WORD ANSWERS. STILL DROWSY. CIWA 8~
[2023-12-29] VITALS (24 sets, daily range): BP systolic 92–170; BP diastolic 50–79
--- NOTE | 2023-12-29 03:12 | NUR ---
UPDATE PT ALERT AND ORIENTED TO SELF AND PLACE. CIWA 15~ W/ BOTH AUDITORY AND VISUAL HALLUCINATIONS. TRIALED PT W/ A SMALL SIP OF WATER W/ SUCCESS. PT ABLE TO TAKE LIBRIUM. TREATED HIP PAIN W/ TORADOL PER EMAR. MEDICATION, REPOSITIONING, AND UNINTERRUPTED REST INBETWEEN APPEARS TO CONTROL PAIN WELL. PT IS PLEASANT AND COOPERATIVE W/ CARE.
[2023-12-29 03:40] LABS: BASOPHILS ABSOLUTE AUTO 0.04 K/mm3 (0.00-0.23); BASOPHILS PERCENT AUTO 0 % (0-2); EOSINOPHILS ABSOLUTE AUTO 0.09 K/mm3 (0.00-0.68); EOSINOPHILS PERCENT AUTO 1 % (0-6); Hematocrit 27.7 % (37.0-53.0); Hemoglobin 9.2 g/dL (13.5-17.5); IMMATURE GRAN ABSOLUTE AUTO 0.06 K/mm3 (0.00-0.10); IMMATURE GRAN PERCENT AUTO 1 % (0-1); LYMPHOCYTES ABSOLUTE AUTO 1.03 K/mm3 (0.84-5.20); LYMPHOCYTES PERCENT AUTO 11 % (21-46); MONOCYTES ABSOLUTE AUTO 1.44 K/mm3 (0.16-1.47); MONOCYTES PERCENT AUTO 16 % (4-13); Mean Corpuscular HGB 30.8 pg (26.0-34.0); Mean Corpuscular HGB Conc 33.2 g/dL (31.5-36.5); Mean Corpuscular Volume 93 fL (80-100); NEUTROPHILS ABSOLUTE AUTO 6.46 K/mm3 (1.96-9.15); NEUTROPHILS PERCENT AUTO 71 % (41-73); RDW Coefficient Variation 14.6 % (11.7-14.2); RDW Standard Deviation 48.5 fL (35.1-46.3); Red Blood Cell Count 2.99 M/mm3 (4.30-5.90); White Blood Cell Count 9.12 K/mm3 (4.00-11.30)
[2023-12-29 03:42] LABS: Mean Platelet Volume 9.6 fL (9.1-12.4); Platelet Count 171 K/mm3 (150-400)
[2023-12-29 03:54] LABS: Bun/Creatinine Ratio 21.3 (12.0-20.0); Calcium, Blood 7.4 mg/dL (8.5-10.1); Creatinine, Blood 0.47 mg/dL (0.60-1.20); Potassium, Blood 3.9 mmol/L (3.5-5.5)
--- NOTE | 2023-12-29 06:30 | NUR ---
SHIFT SUMMARY PT HAS BEEN RESTING QUIETLY SINCE PREVIOUS NOTE. PT CONTINUES TO AROUSE TO VERBAL STIMULI/SPONTANEOUSLY AND APPROPRIATELY CONVERSATES AND FOLLOWS COMMANDS. HIP PAIN CONTINUES TO BE WELL MANAGED BY REPOSITIONING AND UNINTERRUPTED REST IN BETWEEN. PT CIWA <8 AT THIS TIME. OCCASIONALLY DISORIENTED, BUT EASILY REDIRECTABLE. NO OTHER ACUTE EVENTS BESIDES THOSE MENTIONED IN PREVIOUS NOTES.
--- NOTE | 2023-12-29 08:00 | NUR ---
Assumed care of pt at 0700. Bedside report received from Rakesh CASTILLO. Pt awakens with gentle verbal stimulus. Able to state correct name and "[facility]" as location, however incorrectly states year as "2022". He is not able to state reason for hospitalization. Pleasant and cooperative with care. Answers questions, follows commands, verbalizes needs. SpO2 90% or greater with 4 LPM NC - with ETCO2 monitoring. NPO pending plan from surgeon.
[2023-12-29 09:00] LABS: Magnesium, Blood 2.1 mg/dL (1.6-2.4); Phosphorus, Blood 2.5 mg/dL (2.5-4.9)
--- NOTE | 2023-12-29 10:00 | NUR ---
Patient persistently asks for various food items: coffee, hot sauce, ice, omelette. Educated that he has a broken hip and will have nothing to eat or drink until after surgery, however pt does not seem to retain this information and is not able to state why staff is not allowing food or beverage whenever he requests another item. Will continue to reinforce.
--- NOTE | 2023-12-29 19:41 | NUR ---
SUMMARY Neuro: At best, patient was able to state that it was "December" and "2023" and these answers were on separate encounters. Pt knows he is in the hospital but states he is here for "detox from alcohol" and does not mention or acknowldege that he has a broken hip despite being educated on this dozens of times. [facility] [place]: Has not gotten OOB this shift. Does move around independently on bed and often moves off of pillows placed for repositioning. Resp: Currently on 3 LPM NC with ETCO2 at 30 and SpO2 90% or greater. Lungs clear t/o. Cardiac: SR per monitor with BP stable. GI: NPO preceeding surgery. Pt too lethargic postoperatively for PO intake. No BM this shift. Skin: Unchanged from initial assessment with exception of new dressing, omnicel, placed over surgical site. Psychosocial: Pleasant and cooperative with care despite confusion and withdrawl symptoms.
[2023-12-29 21:56] LABS: Hematocrit 25.3 % (37.0-53.0); Hemoglobin 8.4 g/dL (13.5-17.5)
[2023-12-30] VITALS (28 sets, daily range): BP systolic 85–166; BP diastolic 49–95
[2023-12-30 04:36] LABS: BASOPHILS ABSOLUTE AUTO 0.04 K/mm3 (0.00-0.23); BASOPHILS PERCENT AUTO 1 % (0-2); EOSINOPHILS ABSOLUTE AUTO 0.26 K/mm3 (0.00-0.68); EOSINOPHILS PERCENT AUTO 3 % (0-6); Hematocrit 21.3 % (37.0-53.0); Hemoglobin 6.9 g/dL (13.5-17.5); IMMATURE GRAN ABSOLUTE AUTO 0.03 K/mm3 (0.00-0.10); IMMATURE GRAN PERCENT AUTO 0 % (0-1); LYMPHOCYTES ABSOLUTE AUTO 1.15 K/mm3 (0.84-5.20); LYMPHOCYTES PERCENT AUTO 14 % (21-46); MONOCYTES ABSOLUTE AUTO 1.13 K/mm3 (0.16-1.47); MONOCYTES PERCENT AUTO 14 % (4-13); Mean Corpuscular HGB 30.3 pg (26.0-34.0); Mean Corpuscular HGB Conc 32.4 g/dL (31.5-36.5); Mean Corpuscular Volume 93 fL (80-100); Mean Platelet Volume 8.8 fL (9.1-12.4); NEUTROPHILS ABSOLUTE AUTO 5.37 K/mm3 (1.96-9.15); NEUTROPHILS PERCENT AUTO 67 % (41-73); Platelet Count 209 K/mm3 (150-400); RDW Coefficient Variation 14.9 % (11.7-14.2); RDW Standard Deviation 50.6 fL (35.1-46.3); Red Blood Cell Count 2.28 M/mm3 (4.30-5.90); White Blood Cell Count 7.98 K/mm3 (4.00-11.30)
[2023-12-30 04:49] LABS: Calcium, Blood 7.6 mg/dL (8.5-10.1); Creatinine, Blood 0.46 mg/dL (0.60-1.20); Potassium, Blood 3.6 mmol/L (3.5-5.5)
--- NOTE | 2023-12-30 06:15 | NUR ---
SHIFT SUMMARY ASSUMED CARE AT 1900. PT DROWSY BUT SLOWLY BEGAN TO WAKE UP, FOLLOWING DIRECTIONS, A/O X 3. STATED IT WAS APRIL OF 2024. PT REACHING FOR THINGS IN AIR AND HALLUCINATING AT TIMES. TRYING TO GET OOB. EASILY REDIRECTABLE. STATED HIS HIP HURT AND MEDICATED WITH TORADOL. PT GIVEN EVENING MEDS. SINCE EVENING MEDS GIVEN, PT DROWSY REQUIRING LIGHT STERNAL RUB TO WAKE UP. AT TIMES PT WILL MUMBLE A COUPLE OF WORDS AND GO BACK TO SLEEP. AT OTHERS, PT ABLE TO STATE SOME SENTENCES. R HIP DRSG RE-ENFORCED D/T BLEEDING. EDEMA TO RIGHT HIP, MORE WARM THIS AM. APPROX [address] BROWN REGARDING BP WITH MAPS 61-64. ORDER FOR 1L NS BOLUS AND 1/2NS AT 150ML/HR. BP NOW STABLE. DR BROWN CALLED THIS AM REGARDING HEMOGLOBIN OF 6.9. ORDER FOR ONE UNIT OF PRBC. PINK TOP SENT TO LAB. OTHER VSS. SR RATE 70-90'S. STEVEN PATENT AND DRAINING TO GRAVITY. WILL REPORT OFF TO ONCOMING RN.
--- NOTE | 2023-12-30 07:15 | NUR ---
Assumed care of pt at 0700. Bedside report recieved from Jennifer CASTILLO. Pt awakens with gentle verbal stimulus but quickly falls back asleep. 1 U PRBC started for hgb results this AM. Bed alarm on. RR 24 and ETCO2 26 per capnography. SCDs in place for VTE prophylaxis. SR per monitor. BP stable. SpO2 100% with 3 LPM NC - titrated down to 2 LPM.
[2023-12-30 14:44] LABS: Hematocrit 24.8 % (37.0-53.0); Hemoglobin 8.2 g/dL (13.5-17.5)
--- NOTE | 2023-12-30 15:03 | NUR ---
Surgical floor status without telemetry per v/o Dr Thomas. Dr Espinal in to see patient and gave new orders for hip dressing change if needed. Provider okay with patient as surgical floor status.
--- NOTE | 2023-12-30 19:24 | NUR ---
SUMMARY Neuro: A&O x 4. Answers questions, follows commands, verbalizes needs. Pleasant and cooperative with care. CIWA this afternoon only measuring for headache. Dr Thomas notified and 25 mg librium given. Pain controled with tylenol PO. Musc: Able to stand with PT using gait belt and FWW but not ready to walk yet. Bed alarm on, but has not attempted to get out of bed without assistance. ADL: Bath given, linens changed. Pt wearing fall gown. Resp: Titrated to room air. SpO2 90% or greater. Cardiac: Tele DC'd. Pt is surgical floor status. Hypertensive this AM but resolved with PO lisinopril GI: Tolerating diet well without signs of aspiration. No BM this shift. Hypoactive BT. Pt passing gas. : Good urine output from savage. Skin: 2 of the 3 aquacel dressings changed because they were saturated. Cleansed sites with hydrogen peroxide. Dressings C/D/I, Dicussed drainage with Dr Espinal and new orders were received. Psychosocial: Pleasant and cooperative. Receptive to education provided.
--- NOTE | 2023-12-30 20:16 | NUR ---
TRANSFER TO SURGICAL PT TRANSFERRED TO SURGICAL FLOOR WITH THIS RN. PT MEDICATIONS, AND BELONGINGS SENT WITH PT. VSS PRIOR TO TRANSFER AND NO DISTRESS NOTED. ON RA. REPORT GIVEN TO FOUNDATION STAGE TEACHER.
--- NOTE | 2023-12-30 20:20 | NUR ---
ASSUMED CARE ICU TRANSFER TO ROOM 229, PT IS AWAKE, ALERT & RESPONDING TO QUESTIONS APPROPRIATLY, VSS, ON RA, SURGICAL DRSG C/D/I, PAIN WNL. PT ORIENTED TO ROOM, SAFETY EDUCATION PROVIDED, BELONGING'S PLACED IN CLOSET, BED IN LOW POSITION, CALL LIGHT IN REACH, BED ALARM FOR SAFETY.
[2023-12-30 22:33] LABS: Hematocrit 22.5 % (37.0-53.0); Hemoglobin 7.7 g/dL (13.5-17.5)
[2023-12-31 05:20] LABS: BASOPHILS ABSOLUTE AUTO 0.02 K/mm3 (0.00-0.23); BASOPHILS PERCENT AUTO 0 % (0-2); EOSINOPHILS ABSOLUTE AUTO 0.28 K/mm3 (0.00-0.68); EOSINOPHILS PERCENT AUTO 4 % (0-6); Hematocrit 23.5 % (37.0-53.0); IMMATURE GRAN ABSOLUTE AUTO 0.04 K/mm3 (0.00-0.10); IMMATURE GRAN PERCENT AUTO 1 % (0-1); LYMPHOCYTES ABSOLUTE AUTO 1.15 K/mm3 (0.84-5.20); LYMPHOCYTES PERCENT AUTO 16 % (21-46); MONOCYTES ABSOLUTE AUTO 1.13 K/mm3 (0.16-1.47); MONOCYTES PERCENT AUTO 16 % (4-13); Mean Corpuscular HGB 31.5 pg (26.0-34.0); Mean Corpuscular Volume 93 fL (80-100); NEUTROPHILS ABSOLUTE AUTO 4.57 K/mm3 (1.96-9.15); NEUTROPHILS PERCENT AUTO 64 % (41-73); Platelet Count 259 K/mm3 (150-400); RDW Coefficient Variation 15.2 % (11.7-14.2); RDW Standard Deviation 50.5 fL (35.1-46.3); Red Blood Cell Count 2.54 M/mm3 (4.30-5.90); White Blood Cell Count 7.19 K/mm3 (4.00-11.30)
--- NOTE | 2023-12-31 05:35 | NUR ---
SHIFT SUMMARY NO ACUTE CHANGES NOTED THROUGH THE NIGHT, OCCASIONAL CONFUSION NOTED, PT REORIENTS QUICKLY & COOPERATES W/CARE, MINIMAL CIWA NOTED, PT MEDICATED PER EMAR PRN, PT IS POD #2 R.HIP NAILING, AQUACEL DRSG INTACT, CIRC WNL, DENIES N/T, TOLERATING PO INTAKE, DARK YELLOW URINE, HARRIS CATH PATENT. RESTING QUIETLY AT THIS TIME, BED IN LOW POSITION, CALL LIGHT IN REACH
[2023-12-31 05:41] LABS: Albumin, Blood 2.1 g/dL (3.4-5.0); Albumin/Globulin Ratio 0.6 (0.8-1.8); Bilirubin, Total 0.7 mg/dL (0.1-1.0); Bun/Creatinine Ratio 17.7 (12.0-20.0); Calcium, Blood 7.9 mg/dL (8.5-10.1); Creatinine, Blood 0.4 mg/dL (0.60-1.20); Globulin, Blood 3.3 g/dL (2.2-4.0); Potassium, Blood 3.4 mmol/L (3.5-5.5); Total Protein, Blood 5.4 g/dL (6.4-8.2)
[2023-12-31 05:42] VITALS: BP 122/75
[2023-12-31 08:35] VITALS: BP 112/60
[2023-12-31 14:58] VITALS: BP 144/77
--- NOTE | 2023-12-31 17:13 | NUR ---
SHIFT SUMMARY PT A&OX3/PLEASANT & COOPERATIVE, VSS/RA, ALEJANDRO PO/GOOD INTAKE, VOIDING/URINAL, STAND PIVOT TRANSFER TO CHAIR W/2 PPL AND GB, PAIN MANAGED, IV/THIAMINE Q8P, CIWA 5. WILL REPORT TO ONCOMING NOC RN.
[2023-12-31 19:35] VITALS: BP 148/84
--- NOTE | 2024-01-01 03:57 | NUR ---
SHIFT SUMMARY POD3 NO ACUTE CHANGES NOTED, PT HAS BEEN A&O X3, VSS, ON RA, RESP UNLABORED, TERRANCE BANKS C/D/I, ULTRAM FOR PAIN. WCTM & REPORT TO OBSERVE, CALL LIGHT IN REACH
[2024-01-01 07:10] LABS: BASOPHILS ABSOLUTE AUTO 0.06 K/mm3 (0.00-0.23); BASOPHILS PERCENT AUTO 1 % (0-2); EOSINOPHILS ABSOLUTE AUTO 0.36 K/mm3 (0.00-0.68); EOSINOPHILS PERCENT AUTO 5 % (0-6); Hemoglobin 8.8 g/dL (13.5-17.5); IMMATURE GRAN ABSOLUTE AUTO 0.03 K/mm3 (0.00-0.10); IMMATURE GRAN PERCENT AUTO 0 % (0-1); LYMPHOCYTES PERCENT AUTO 16 % (21-46); MONOCYTES ABSOLUTE AUTO 1.23 K/mm3 (0.16-1.47); MONOCYTES PERCENT AUTO 16 % (4-13); Mean Corpuscular HGB 30.3 pg (26.0-34.0); Mean Corpuscular HGB Conc 32.6 g/dL (31.5-36.5); Mean Corpuscular Volume 93 fL (80-100); Mean Platelet Volume 8.5 fL (9.1-12.4); NEUTROPHILS ABSOLUTE AUTO 4.97 K/mm3 (1.96-9.15); NEUTROPHILS PERCENT AUTO 62 % (41-73); Platelet Count 361 K/mm3 (150-400); RDW Coefficient Variation 15.5 % (11.7-14.2); RDW Standard Deviation 52.6 fL (35.1-46.3); White Blood Cell Count 7.95 K/mm3 (4.00-11.30)
[2024-01-01 07:44] VITALS: BP 109/71
[2024-01-01 08:44] LABS: Anion Gap Unable to Calculate mmol/L (6-16); Blood Urea Nitrogen 7 mg/dL (8-24); Bun/Creatinine Ratio 16.9 (12.0-20.0); CO2, Blood 31 mmol/L (21-32); Calcium, Blood 8.5 mg/dL (8.5-10.1); Chloride, Blood 108 mmol/L (98-108); Creatinine, Blood 0.42 mg/dL (0.60-1.20); Glomerular Filtration Rate 119 (60-); Glucose, Blood 107 mg/dL (70-99); Potassium, Blood 3.9 mmol/L (3.5-5.5); Sodium, Blood 138 mmol/L (136-145)
--- NOTE | 2024-01-01 11:29 | NUR ---
"Spiritual Care Referral | ordered by Martha Cannon per Pt. request Pt. is awake and sittign up in a recliner when he welcomes my visit. Pt. is pleasant, but displays evidence of being withdrawn and depressed. Facilitated a lengthy life review to build a relationship of care with the Pt. and to help promote a sense of purpose and peace. Pt. displayed evidence of increased trust. Explored issues of trust. Considered matters of Pts. past. Prayed with Pt. Pt. verbalized gratitude for the spiritual care visit."
--- NOTE | 2024-01-01 14:28 | NUR ---
DISCHARGE SUMMARY POD 2 R HIP NAILING, A/OX4, VSS, TOLERATING DIET, PAIN WELL MANAGED, MIDLINE CATHETER JUDSON REMOVED IT WAS NOT FLUSHING DURING ASSESSMENT, LINE APPEARED TO HAVE SOME BLOOD THAT HAD BACKED UP INTO IT AND CLOTTED OFF, DISCUSSED STARTING NEW IV WITH THE PATIENT AND HELD OFF DUE TO DISCHARGE BEING SET UP FOR TODAY, PT ACCEPTED TO [facility] AND IS CURRENTLY AWAITING PAYROLL REPRESENTATIVE BY TRANSPORT, REPORT ALREADY CALLED TO [facility] NURSING STAFF WITH ALL QUESTIONS ANSWERED. WILL UPDATE WHEN HE IS PICKED UP TO ME.
== END 2024-01-01 14:19 | DRG 481 ==
LOC: ER 02:47 → ICUE 02:48 → ERHOLD 02:48 → ICUE 08:07 → SURS 12-30 20:15
PROVIDERS: Anesthesiology; Emergency Medicine; Family Medicine; Hospitalist; Orthopaedic Surgery; Student in an Organized Health Care Education/Training Program; ADMIT Internal Medicine
PROC: 0QS606Z Reposition Right Upper Femur with Intramedullary Internal Fixation Device, Open Approach (ICD-10-PCS; principal; 2023-12-29 09:30)
PROC: 30233N1 Transfusion of Nonautologous Red Blood Cells into Peripheral Vein, Percutaneous Approach (ICD-10-PCS; 2023-12-31)
DX: S72.141A Displaced intertrochanteric fracture of right femur, initial encounter for closed fracture (principal); D62 Acute posthemorrhagic anemia; E87.1 Hypo-osmolality and hyponatremia; S06.0X9A Concussion with loss of consciousness of unspecified duration, initial encounter; I69.354 Hemiplegia and hemiparesis following cerebral infarction affecting left non-dominant side; F10.231 Alcohol dependence with withdrawal delirium; R51.9 Headache, unspecified; S00.212A Abrasion of left eyelid and periocular area, initial encounter; W01.190A Fall on same level from slipping, tripping and stumbling with subsequent striking against furniture, initial encounter; Y92.018 Other place in single-family (private) house as the place of occurrence of the external cause; J43.9 Emphysema, unspecified; I10 Essential (primary) hypertension; G40.909 Epilepsy, unspecified, not intractable, without status epilepticus; F32.A Depression, unspecified; G43.909 Migraine, unspecified, not intractable, without status migrainosus; F17.210 Nicotine dependence, cigarettes, uncomplicated; G47.00 Insomnia, unspecified; B00.9 Herpesviral infection, unspecified; R29.6 Repeated falls; R55 Syncope and collapse; Z87.820 Personal history of traumatic brain injury; Z28.21 Immunization not carried out because of patient refusal
CPT/HCPCS: 36415; 51702; 70450; 72125; 73502; 73552; 80048; 80053; 82803; 83605; 83735; 83880; 84100; 84443; 85014; 85018; 85025; 86850; 86900; 86901; 86923; 93005; 93010; 93306; 94760; 94762; 96361; 96365; 96367; 96374; 96375; 96376; 97162; 97165; 97530; 99285-25; A9270; C1713; C1751; C1769; G0378; J0690; J1100; J1170; J1650; J1885; J2060; J2250; J2270; J2371; J2405; J2704; J3010; J3411; J7030; J7050; J7120; P9016

== ENCOUNTER 2024-08-17 13:03 | Inpatient (IN) | payer OTHER ==
[~2024-08-17] VITALS: Ht 182.9 cm; Wt 70.9 kg
[~2024-08-17 13:03] MED LIST changes: +HYDHCL25
[2024-08-17] MEDS ORDERED: Diltiazem HCl 5 MG / ML 5ML Vial IV ONE (14:15)
[2024-08-17] MEDS ORDERED: Lactated Ringer's 1,000 ML IV ONE ×2 (14:15→16:20)
[2024-08-17] MEDS ORDERED: DiphenhydrAMINE HCL 25 MG Cap ONE (14:22)
[2024-08-17] MEDS ORDERED: DiphenhydrAMINE HCL 25 MG Cap PO ONE (14:30)
[2024-08-17 14:41] LABS: BASOPHILS ABSOLUTE AUTO 0.08 K/mm3 (0.00-0.23); BASOPHILS PERCENT AUTO 0 % (0-2); EOSINOPHILS ABSOLUTE AUTO 0.09 K/mm3 (0.00-0.68); EOSINOPHILS PERCENT AUTO 0 % (0-6); Hematocrit 37.4 % (37.0-53.0); Hemoglobin 12.4 g/dL (13.5-17.5); IMMATURE GRAN ABSOLUTE AUTO 0.13 K/mm3 (0.00-0.10); IMMATURE GRAN PERCENT AUTO 1 % (0-1); LYMPHOCYTES ABSOLUTE AUTO 1.44 K/mm3 (0.84-5.20); LYMPHOCYTES PERCENT AUTO 7 % (21-46); MONOCYTES ABSOLUTE AUTO 2.56 K/mm3 (0.16-1.47); MONOCYTES PERCENT AUTO 12 % (4-13); Mean Corpuscular HGB 28.5 pg (26.0-34.0); Mean Corpuscular HGB Conc 33.2 g/dL (31.5-36.5); Mean Corpuscular Volume 86 fL (80-100); Mean Platelet Volume 8.5 fL (9.1-12.4); NEUTROPHILS ABSOLUTE AUTO 16.76 K/mm3 (1.96-9.15); NEUTROPHILS PERCENT AUTO 80 % (41-73); Platelet Count 674 K/mm3 (150-400); RDW Coefficient Variation 13.4 % (11.7-14.2); RDW Standard Deviation 42.1 fL (35.1-46.3); Red Blood Cell Count 4.35 M/mm3 (4.30-5.90); White Blood Cell Count 21.06 K/mm3 (4.00-11.30)
[2024-08-17] MEDS ORDERED: Metoprolol Tartrate 1 MG/ML 5 ML VIAL IV PRN (14:45)
[2024-08-17 15:09] LABS: Albumin, Blood 2.5 g/dL (3.4-5.0); Albumin/Globulin Ratio 0.5 (0.8-1.8); Bilirubin, Total 0.3 mg/dL (0.1-1.0); Bun/Creatinine Ratio 18.5 (12.0-20.0); Creatinine, Blood 0.49 mg/dL (0.60-1.20); Globulin, Blood 5.5 g/dL (2.2-4.0); Potassium, Blood 3.7 mmol/L (3.5-5.5)
[2024-08-17 15:13] LABS: Source, Urine Clean Catch
[2024-08-17 15:19] LABS: Appearance, Urine Clear (Clear); Bilirubin, Urine Neg (Neg); Blood, Urine Neg (Neg); Color, Urine Yellow (P-Yellow); Glucose Qualitative, Urine Neg (Neg); Ketones, Urine 2+ (Neg); Leukocyte Esterase, Urine Neg (Neg); Nitrite, Urine Neg (Neg); Protein, Urine 1+ (Neg); Urobilinogen, Urine 3+ (Normal)
[2024-08-17 15:23] LABS: Free Thyroxine 1.63 ng/dL (0.70-1.60)
[2024-08-17 15:25] LABS: Thyroid Stimulating Hormone 0.737 uIU/mL (0.360-4.800)
[2024-08-17 15:30] LABS: U Amphetamine Screen Not Detected; U Barbituate Screen DETECTED; U Benzodiazapine Screen Not Detected; U Buprenorphine Screen Not Detected; U Cannabinoids Screen Not Detected; U Cocaine Screen Not Detected; U Methadone Screen Not Detected; U Methamphetamine Screen Not Detected; U Opiates Screen Not Detected; U Oxycodone Screen Not Detected; U Phencyclidine Screen Not Detected
[2024-08-17] MEDS ORDERED: Digoxin 0.25 MG/ML 2ML Amp IV ONE ×2 (17:50→18:25)
[2024-08-17] MEDS ORDERED: CefTRIAXone Sodium 1,000 MG in NS 100 ML IV ONE (19:35)
[2024-08-17] MEDS ORDERED: Metoprolol Tartrate 25 MG Tab PO ONE (19:35)
[2024-08-17] MEDS ORDERED: Vancomycin HCL 1,750 MG in NS 500 ML IV ONE (19:45)
[2024-08-17] MEDS ORDERED: LORazepam 2 MG/ML 1ML Injection IV PRN (20:35)
[2024-08-17] MEDS ORDERED: Acetaminophen 325 MG TABLET PO PRN (20:35)
[2024-08-17] MEDS ORDERED: Lactated Ringer's 1,000 ML IV SCH (20:35)
[2024-08-17] MEDS ORDERED: Albuterol 2.5 MG/3 ML VIAL INH PRN (20:40)
[2024-08-17] MEDS ORDERED: Esmolol HCL 2500mg/250ml Prema 250 ML IV SCH (20:40)
[2024-08-17] MEDS ORDERED: QUEtiapine Fumarate 50 MG TAB PO SCH (21:00)
[2024-08-17] MEDS ORDERED: GuaiFENesin 600 MG TabCR PO SCH (21:00)
[2024-08-17 21:33] LABS: Anti-Xa UFH, PHA Monitoring <0.10 IU/mL; International Normalized Ratio 1.17; Prothrombin Time Results 12.4 Sec (9.7-11.5)
[2024-08-17 22:49] VITALS: BP 150/76
[2024-08-17] MEDS ORDERED: Heparin Sodium 5000 Units/ML 1ML MDV IV ONE (22:50)
[2024-08-17] MEDS ORDERED: Heparin Sodium,Porcine/0.5 NS 500 ML IV SCH (22:50)
[2024-08-17] MEDS ORDERED: MELA3 PO (22:58)
[2024-08-17] MEDS ORDERED: TRAM50 PO (22:59)
[2024-08-17] MEDS ORDERED: TOPI50 PO (22:59)
[2024-08-18] VITALS (7 sets, daily range): BP systolic 126–155; BP diastolic 55–93
[2024-08-18] MEDS ORDERED: Metoprolol Tartrate 1 MG/ML 5 ML VIAL IV PRN (00:45)
[2024-08-18 06:15] LABS: BASOPHILS ABSOLUTE AUTO 0.08 K/mm3 (0.00-0.23); BASOPHILS PERCENT AUTO 0 % (0-2); EOSINOPHILS ABSOLUTE AUTO 0.04 K/mm3 (0.00-0.68); EOSINOPHILS PERCENT AUTO 0 % (0-6); Hematocrit 32.1 % (37.0-53.0); Hemoglobin 10.7 g/dL (13.5-17.5); IMMATURE GRAN ABSOLUTE AUTO 0.07 K/mm3 (0.00-0.10); IMMATURE GRAN PERCENT AUTO 0 % (0-1); LYMPHOCYTES ABSOLUTE AUTO 1.34 K/mm3 (0.84-5.20); LYMPHOCYTES PERCENT AUTO 7 % (21-46); MONOCYTES ABSOLUTE AUTO 1.96 K/mm3 (0.16-1.47); MONOCYTES PERCENT AUTO 11 % (4-13); Mean Corpuscular HGB 28.7 pg (26.0-34.0); Mean Corpuscular HGB Conc 33.3 g/dL (31.5-36.5); Mean Corpuscular Volume 86 fL (80-100); Mean Platelet Volume 8.1 fL (9.1-12.4); NEUTROPHILS PERCENT AUTO 81 % (41-73); Platelet Count 596 K/mm3 (150-400); RDW Coefficient Variation 13.6 % (11.7-14.2); RDW Standard Deviation 43.1 fL (35.1-46.3); Red Blood Cell Count 3.73 M/mm3 (4.30-5.90); White Blood Cell Count 18.29 K/mm3 (4.00-11.30)
[2024-08-18 06:43] LABS: Albumin, Blood 2.3 g/dL (3.4-5.0); Albumin/Globulin Ratio 0.5 (0.8-1.8); Bilirubin, Total 0.3 mg/dL (0.1-1.0); Bun/Creatinine Ratio 13.4 (12.0-20.0); Calcium, Blood 9.5 mg/dL (8.5-10.1); Creatinine, Blood 0.45 mg/dL (0.60-1.20); Globulin, Blood 4.9 g/dL (2.2-4.0); Potassium, Blood 3.6 mmol/L (3.5-5.5); Total Protein, Blood 7.2 g/dL (6.4-8.2)
--- NOTE | 2024-08-18 07:08 | NUR ---
SHIFT SUMMARY PT TRANSFERRED FROM ED AT APPROX 2245. PT A&O3 PLEASANT AND COOPERATIVE, CURRENTLT IN AFIB 110'S TO 140'S NONSUSTAINING. PT CONVERTED TO NSR OVERNIGHT AND VS HAVE BEEN STABLE. HEPARIN GTTS STARTED AND BOLUS GIVEN. AWAITING NEW ANTI XA TO BE DRAWN. PT'S BED IN LOWEST POSITION, BED ALARM ON AND CALL LIGHT WITHIN REACH.
[2024-08-18] MEDS ORDERED: Piperacillin/Tazobactam Sod 3.375 GM in NS 100 ML IV SCH (09:00)
[2024-08-18] MEDS ORDERED: Metoprolol Tartrate 25 MG Tab PO SCH (09:00)
[2024-08-18] MEDS ORDERED: Sertraline HCl 100 MG Tab PO SCH (09:00)
[2024-08-18] MEDS ORDERED: ValACYClovir HCL 500 MG Tab PO SCH (09:00)
[2024-08-18] MEDS ORDERED: PrednisoLONE 1% Opth Susp 5 ML RIGHTEYE SCH (09:00)
[2024-08-18] MEDS ORDERED: Dose Adjust by Pharmacy XX STA ×2 (09:45→17:03)
--- NOTE | 2024-08-18 11:25 | NUR ---
DR. LION AT BEDSIDE AT THIS TIME.
[2024-08-18] MEDS ORDERED: Heparin Sodium 5000 Units/ML 1ML MDV IV ONE (17:05)
--- NOTE | 2024-08-18 17:21 | NUR ---
END OF SHIFT SUMMARY: PT IS A&OX4 AND COOPERATIVE WITH HIS CARE. UESES CALL LIGHT APPROPRIATELY AND MAKES NEEDS KNOWN. IS SATTING >90% ON ROOM AIR. ON TELE SHOWING SINUS RYTHM WITH A BBB WITH RATE IN 70'S. PT HAD AN INSTANCE OF CHEST PRESSURE THIS MORNING AND STATED IT RADIATED TO HIS LEFT SHOULDER. SHORTLY AFTER RESING IT WENT AWAY AND DID NOT HAVE ANY MORE PAIN THROUGHOUT THE SHIFT.PT HAD AN ECHO DONE THIS MORNING AND AWAITING RESULTS. DOCTOR AYAD CAME IN AND HAD A THOROUGH CHAT WITH PATIENT AND PLAN IS TO GET A BRONCOSCOPY POSSIBLY MONDAY 08/20. A POWERGLIDE WAS PLACED IN THE LEFT UPPER ARM AND HEPRIN GTT WAS INCREASED TO 25.1 U/KG AND A BOLUS OF 3,300 UNITS WAS GIVEN. SON WAS UPDATED AND KNOWS THE PLAN, ASKED FOR ANY UPDATES IF THINGS CHANGE. WILL NOTIFY TO ONCOMING COTTRELL BLOWER RN.
[2024-08-18] MEDS ORDERED: CefTRIAXone Sodium 1,000 MG in NS 100 ML IV SCH (18:00)
[2024-08-18] MEDS ORDERED: NS 250 ML IV PRN (23:15)
[2024-08-19] MEDS ORDERED: Heparin Sodium 5000 Units/ML 1ML MDV IV ONE ×4 (03:10→17:45)
[2024-08-19] MEDS ORDERED: Dose Adjust by Pharmacy XX STA ×3 (03:16→17:43)
[2024-08-19 03:49] VITALS: BP 172/68
[2024-08-19 04:19] LABS: BASOPHILS ABSOLUTE AUTO 0.07 K/mm3 (0.00-0.23); BASOPHILS PERCENT AUTO 0 % (0-2); EOSINOPHILS ABSOLUTE AUTO 0.08 K/mm3 (0.00-0.68); EOSINOPHILS PERCENT AUTO 1 % (0-6); Hematocrit 27.2 % (37.0-53.0); Hemoglobin 9.1 g/dL (13.5-17.5); IMMATURE GRAN ABSOLUTE AUTO 0.08 K/mm3 (0.00-0.10); IMMATURE GRAN PERCENT AUTO 1 % (0-1); LYMPHOCYTES PERCENT AUTO 8 % (21-46); MONOCYTES ABSOLUTE AUTO 1.91 K/mm3 (0.16-1.47); MONOCYTES PERCENT AUTO 11 % (4-13); Mean Corpuscular HGB 28.5 pg (26.0-34.0); Mean Corpuscular HGB Conc 33.5 g/dL (31.5-36.5); Mean Corpuscular Volume 85 fL (80-100); Mean Platelet Volume 8.5 fL (9.1-12.4); NEUTROPHILS ABSOLUTE AUTO 13.18 K/mm3 (1.96-9.15); NEUTROPHILS PERCENT AUTO 79 % (41-73); Platelet Count 563 K/mm3 (150-400); RDW Coefficient Variation 13.6 % (11.7-14.2); RDW Standard Deviation 42.7 fL (35.1-46.3); Red Blood Cell Count 3.19 M/mm3 (4.30-5.90); White Blood Cell Count 16.72 K/mm3 (4.00-11.30)
[2024-08-19 04:39] LABS: Albumin/Globulin Ratio 0.5 (0.8-1.8); Bilirubin, Total 0.3 mg/dL (0.1-1.0); Bun/Creatinine Ratio 12.5 (12.0-20.0); Calcium, Blood 9.2 mg/dL (8.5-10.1); Creatinine, Blood 0.4 mg/dL (0.60-1.20); Globulin, Blood 4.4 g/dL (2.2-4.0); Potassium, Blood 3.3 mmol/L (3.5-5.5); Total Protein, Blood 6.4 g/dL (6.4-8.2)
--- NOTE | 2024-08-19 05:06 | NUR ---
SHIFT SUMMARY S/P ACUTE RESP FAILURE. NO ACUTE CHANGES OVERNIGHT. TOLERATING REG DIET, ENC PO INTAKE. VSS, O2 SAT >90% ON RA; TELE - SV RHYTHM @ 69; PT HYPERTENSIVE THIS AM R/T ALTERNATE BP SITES, RECOMMEND MANUAL BPs ON R FA. BILAT UPPER ARM POWERGLIDES. VOIDING USING URINAL/INCONT VOIDS, ATTENDS IN USE. SMALL BM AT BEGINNING OF SHIFT. STAND/PIVOT USING FWW TO BSC. ANTICIPATED BRONCHOSCOPY TU. CALL LIGHT IN REACH, BED ALARM IN USE, WILL REPORT TO DAY RN.
[2024-08-19] MEDS ORDERED: Potassium Chloride 20 MEQ TabCR PO ONE (07:00)
[2024-08-19 07:37] VITALS: BP 152/80
[2024-08-19] MEDS ORDERED: Folic Acid 1 MG TAB PO SCH (09:00)
[2024-08-19] MEDS ORDERED: Thiamine HCl 100 MG Tab PO SCH (09:00)
--- NOTE | 2024-08-19 09:59 | NUR ---
ROUNDED AND STATED THAT A POSSIBLE BRONCOSOPY 08/20. HE WILL CHAT WITH THE PATIENT AND WILL PUT IN FURTHER ORDERS IN.
[2024-08-19] MEDS ORDERED: Ipratropium/Albuterol SulF 2.5-0.5MG/3 ML Amp INH SCH (11:00)
[2024-08-19 14:32] LABS: Hematocrit 27.7 % (37.0-53.0); Hemoglobin 9.5 g/dL (13.5-17.5)
--- NOTE | 2024-08-19 17:06 | NUR ---
TRANSFER NOTE: CALLED AND GAVE REPORT TO DANILO BORGES RN ON MEDICAL FLOOR ROM 305. PATIENT TOOK ALL BELONGINGS IN BAG AND WAS TRANSFFERED UPSTAIRS VIA WHEELCHAIR. SATTING >90% ON ROOM AIR, ON TELE SHOWING SINUS RYTHM RATE IN 70'S, BLOOD PRESSURE STABLE. CALLED SON TO UPDATE ON STATUS AND WHAT FLOOR, TENATIVE PLAN TO GET A BRONCOSOPY 08/20 AT 10AM.
[2024-08-19 17:22] LABS: Anti-Xa UFH, PHA Monitoring <0.10 IU/mL
[2024-08-19 17:45] VITALS: BP 164/85
--- NOTE | 2024-08-19 17:58 | NUR ---
SHIFT SUMMARY: PT ARRIVED ON UNIT AT 1722, HEPARIN BAG CHANGED, RATE CHANGE AND BOLUS GIVEN PER EMR. PT ORIENTED TO ROOM. BED IN LOWEST POSITION AND CALL LIGHT IN REACH. PT SLEEPING. CONTINUING CARE.
--- NOTE | 2024-08-19 18:01 | NUR ---
THIS HYDRO PLANT OPERATOR HAS REVIEWED AND AGREES WITH NOTE BY ANNA CARRASCO.
[2024-08-19 19:13] VITALS: BP 178/69
[2024-08-20] VITALS (41 sets, daily range): BP systolic 71–192; BP diastolic 30–139
[2024-08-20 01:01] LABS: BASOPHILS ABSOLUTE AUTO 0.07 K/mm3 (0.00-0.23); BASOPHILS PERCENT AUTO 0 % (0-2); EOSINOPHILS ABSOLUTE AUTO 0.07 K/mm3 (0.00-0.68); EOSINOPHILS PERCENT AUTO 0 % (0-6); Hematocrit 27.7 % (37.0-53.0); Hemoglobin 9.2 g/dL (13.5-17.5); IMMATURE GRAN ABSOLUTE AUTO 0.12 K/mm3 (0.00-0.10); IMMATURE GRAN PERCENT AUTO 1 % (0-1); LYMPHOCYTES ABSOLUTE AUTO 1.43 K/mm3 (0.84-5.20); LYMPHOCYTES PERCENT AUTO 8 % (21-46); MONOCYTES ABSOLUTE AUTO 2.04 K/mm3 (0.16-1.47); MONOCYTES PERCENT AUTO 11 % (4-13); Mean Corpuscular HGB 28.4 pg (26.0-34.0); Mean Corpuscular HGB Conc 33.2 g/dL (31.5-36.5); Mean Corpuscular Volume 86 fL (80-100); Mean Platelet Volume 8.7 fL (9.1-12.4); NEUTROPHILS ABSOLUTE AUTO 15.09 K/mm3 (1.96-9.15); NEUTROPHILS PERCENT AUTO 80 % (41-73); Platelet Count 548 K/mm3 (150-400); RDW Coefficient Variation 13.3 % (11.7-14.2); RDW Standard Deviation 41.5 fL (35.1-46.3); Red Blood Cell Count 3.24 M/mm3 (4.30-5.90); White Blood Cell Count 18.82 K/mm3 (4.00-11.30)
[2024-08-20] MEDS ORDERED: Heparin Sodium 5000 Units/ML 1ML MDV IV ONE (01:25)
[2024-08-20] MEDS ORDERED: Dose Adjust by Pharmacy XX STA ×2 (01:25→19:09)
[2024-08-20 01:29] LABS: Bun/Creatinine Ratio 10.8 (12.0-20.0); Calcium, Blood 9.2 mg/dL (8.5-10.1); Creatinine, Blood 0.37 mg/dL (0.60-1.20); Potassium, Blood 3.3 mmol/L (3.5-5.5)
[2024-08-20] MEDS ORDERED: Potassium Chloride 20 MEQ TabCR PO ONE (07:00)
[2024-08-20] MEDS ORDERED: Potassium Chl 20MEQ/Water100ML 100 ML IV STA (07:40)
[2024-08-20] MEDS ORDERED: HydrALAZINE HCl 20 MG / ML 1ML Vial IV ONE (08:00)
--- NOTE | 2024-08-20 08:12 | NUR ---
SHIFT SUMMARY PT IS A&OX3, VERY SLOW TO RESPOND TO QUESTIONS. HTN SYS >180. ON RA. PER TELEMETRY PT REMAINS IN SR 60'S-70'S. DENIES PAIN. HEPARIN GTT INFUSING AND RATE WAS INCREASED BEFORE TURNING OFF AT 0400. PT NPO AFTER MN FOR MORNING BRONCHOSCOPY. PT IS INCONTINENT, BRIEF IN PLACE AND CHANGED NEEDED. NO BM THIS SHIFT. X2 ASSIST TO AMBULATE TO BR. PT HAS LEFT SIDE DEFICITS AND IS VERY WEAK. BED IN LOWEST POSITION, CALL LIGHT WITHIN REACH. BED ALARM SET FOR PT'S SAFETY. PT HAS NOT ATTEMPTED TO USE CALL LIGHT.
[2024-08-20] MEDS ORDERED: Lactated Ringer's 1,000 ML IV SCH (08:45)
[2024-08-20] MEDS ORDERED: EpiNEPhrine 1 MG/1 ML 1ML Vial ONE (09:02)
[2024-08-20] MEDS ORDERED: Lidocaine 2% 5 ML SDV ONE (09:02)
[2024-08-20] MEDS ORDERED: Lidocaine 2% Jelly Uro-Jet ONE (09:02)
[2024-08-20] MEDS ORDERED: propofoL 40 ML IV ONE (10:10)
[2024-08-20] MEDS ORDERED: Midazolam HCl 1MG / ML 2ML Vial ONE (10:11)
--- NOTE | 2024-08-20 11:06 | NUR ---
08/20/24 1106 Pranay Colmenares CONFIRMED AND REVIEWED H&P, MEDCICATIONS, ALLERGIES, MEDICAL HISTORY, RESPIRATORY HISTORY, VITAL SIGNS, 3-LEAD EKG, CONSENTS, AND PHYSICIAN ORDERS. PATIENT CONFIRMS NPO STATUS AND AGREES WITH SCHEDULED PROCEDURE. MONITOR INTACT WITH CONTINUOUS PULSE OXIMETRY, CAPNOGRAPHY, 3-LEAD EKG, INTERMITTENT BP. SUPPLEMENTAL O2 TO BE TITRATED THROUGHOUT PROCEDURE TO MAINTAIN O2 SATURATION ABOVE 90%. PATIENT DETERMINED TO BE ASA APPROPRIATE FOR PROPOFOL SEDATION PRIOR TO START OF PROCEDURE BY DR. ABRAHAM. Bite Block Placed. LIDOCAINE TO BACK OF THROAT PER DR ABRAHAM.
--- NOTE | 2024-08-20 11:49 | NUR ---
NURSING NOTE: PT BROUGHT BACK UP FROM DAY SURGERY, ARRIVED AT 1145. PT SLEEPY AND COUGHING OCCASIONALLY. IV ANTIBIOTICS AND POTASSIUM REHOOKED UP AND RUNNING. PT ORIENTED TO ROOM. BED IN LOWEST POSITION AND CALL LIGHT IN REACH. CONTINUING CARE.
[2024-08-20 12:45] LABS: Albumin/Globulin Ratio 0.5 (0.8-1.8); Bilirubin, Total 0.4 mg/dL (0.1-1.0); Bun/Creatinine Ratio 9.5 (12.0-20.0); Calcium, Blood 9.1 mg/dL (8.5-10.1); Creatinine, Blood 0.42 mg/dL (0.60-1.20); Globulin, Blood 4.3 g/dL (2.2-4.0); Potassium, Blood 3.6 mmol/L (3.5-5.5); Total Protein, Blood 6.3 g/dL (6.4-8.2)
[2024-08-20] MEDS ORDERED: HydrALAZINE HCl 20 MG / ML 1ML Vial IV PRN (14:00)
--- NOTE | 2024-08-20 18:26 | NUR ---
PT HAS BEEN AOX3 FOR MOST OF THE DAY. WENT DOWN TO PROCEDURE AND UPON ARRIVAL BACK HAS BEEN A BIT MORE CONFUSED. PT IN THE AM WAS A TWO PERSON MAX TO BEDSIDE COMMODE. CURRENTLY PT HAD AN EPISODE OF AFIB WITH [facility]VR AND WAS TREATED PER EMAR. DR REDMAN WAS NOTIFIED AND WAS ALSO REQUEST TO START ORDER FOR HEPRIN PER DR STERN AT 1800. PT HAS HAD A SLIGHT DECREASE IN HR GOING INTO THE 130s AND IS STILL AFIB PER ORAL HYGIENIST. WILL CONTINUE TO MONITOR CLOSELY.
[2024-08-20] MEDS ORDERED: Ipratropium/Albuterol SulF 2.5-0.5MG/3 ML Amp INH SCH (18:35)
[2024-08-20] MEDS ORDERED: Metoprolol Tartrate 1 MG/ML 5 ML VIAL IV ONE ×2 (18:55→20:00)
--- NOTE | 2024-08-20 19:09 | NUR ---
THIS GAUGE AND INSTRUMENT INSPECTOR HAS REVIEWED AND AGREES WITH ALL NOTES AND ASSESSMENTS BY ANNA CARRASCO.
[2024-08-20] MEDS ORDERED: Heparin Sodium,Porcine/0.5 NS 500 ML IV SCH (19:10)
[2024-08-20] MEDS ORDERED: Digoxin 0.25 MG/ML 2ML Amp IV ONE (20:00)
[2024-08-20] MEDS ORDERED: Digoxin 0.5 MG in Dextrose 5% 50 ML IV ONE (20:05)
[2024-08-20] MEDS ORDERED: Metoprolol Tartrate 1 MG/ML 5 ML VIAL IV PRN (21:35)
[2024-08-21] VITALS (14 sets, daily range): BP systolic 102–177; BP diastolic 58–98
[2024-08-21] MEDS ORDERED: Digoxin 0.25 MG in Dextrose 5% 100 ML IV ONE (00:30)
[2024-08-21] MEDS ORDERED: Digoxin 0.25 MG/ML 2ML Amp IV ONE ×2 (00:30)
--- NOTE | 2024-08-21 01:20 | NUR ---
LATE NOTE. PT ARRIVED ON UNIT @ 2049. AOX2, ABLE TO MAKE NEEDS KNOWN. SOMEWHAT COOPERATIVE, MENTATION APPEARS TO SOMEWHAT FLUCTUATE AT TIMES HE IS MORE ALERT AND RESPONSIVE AND AT OTHER TIMES HE IS MORE LETHARGIC. REMAINS AROUSABLE WHEN LETHARGIC BUT REQUIRES MORE CONCENTRATED EFFORT. NO PAIN REPORTED. TRANSFERRED FROM MEDICAL FLOOR FOR AFIB RVR. GETTING DIG LOADED, HR MOSTLY BEEN IN 90s-100s RANGE FOR SEVERAL HOURS. VITALS HAVE REMAINED STABLE. HAS MAINTAINED ADEQUATE SATURATION ON ROOM AIR. ABLE TO REPOSITION SELF INDEPENDENTLY. HAS BEEN RESTING COMFORTABLY IN BED SINCE ARRIVAL. BED LOCKED IN LOWEST POSITION. CALL LIGHT LEFT WITHIN REACH. CONTINUING TO MONITOR.
[2024-08-21 02:18] LABS: BASOPHILS ABSOLUTE AUTO 0.06 K/mm3 (0.00-0.23); BASOPHILS PERCENT AUTO 0 % (0-2); EOSINOPHILS ABSOLUTE AUTO 0.05 K/mm3 (0.00-0.68); EOSINOPHILS PERCENT AUTO 0 % (0-6); Hematocrit 26.9 % (37.0-53.0); IMMATURE GRAN ABSOLUTE AUTO 0.09 K/mm3 (0.00-0.10); IMMATURE GRAN PERCENT AUTO 1 % (0-1); LYMPHOCYTES ABSOLUTE AUTO 1.48 K/mm3 (0.84-5.20); LYMPHOCYTES PERCENT AUTO 8 % (21-46); MONOCYTES ABSOLUTE AUTO 2.33 K/mm3 (0.16-1.47); MONOCYTES PERCENT AUTO 13 % (4-13); Mean Corpuscular HGB 28.5 pg (26.0-34.0); Mean Corpuscular HGB Conc 33.5 g/dL (31.5-36.5); Mean Corpuscular Volume 85 fL (80-100); Mean Platelet Volume 8.5 fL (9.1-12.4); NEUTROPHILS ABSOLUTE AUTO 14.06 K/mm3 (1.96-9.15); NEUTROPHILS PERCENT AUTO 78 % (41-73); Platelet Count 534 K/mm3 (150-400); RDW Coefficient Variation 13.5 % (11.7-14.2); RDW Standard Deviation 42.4 fL (35.1-46.3); Red Blood Cell Count 3.16 M/mm3 (4.30-5.90); White Blood Cell Count 18.07 K/mm3 (4.00-11.30)
[2024-08-21 02:35] LABS: Albumin, Blood 1.8 g/dL (3.4-5.0); Albumin/Globulin Ratio 0.4 (0.8-1.8); Bilirubin, Total 0.5 mg/dL (0.1-1.0); Bun/Creatinine Ratio 10.5 (12.0-20.0); Creatinine, Blood 0.47 mg/dL (0.60-1.20); Globulin, Blood 4.3 g/dL (2.2-4.0); Potassium, Blood 3.4 mmol/L (3.5-5.5); Total Protein, Blood 6.1 g/dL (6.4-8.2)
[2024-08-21] MEDS ORDERED: Heparin Sodium 5000 Units/ML 1ML MDV IV ONE ×2 (02:55→09:20)
[2024-08-21] MEDS ORDERED: Dose Adjust by Pharmacy XX STA ×2 (02:59→09:19)
--- NOTE | 2024-08-21 03:32 | NUR ---
PHARMACY ADJUSTED HEPARIN DRIP RATE THIS MORNING TO 36 UNITS/KG/HR @ 48.2 MLS/HR, DOSING WEIGHT OF 67 KG. HARD LOCKOUT ON PUMP EXCEEDED GUARDRAILS. THIS RN ON LUNCH AT TIME, BREAK ANNA MANRIQUEZ SPOKE WITH PHARMACIST VALARIE AND MONIKA APPLIANCE WORKER. WITH HELP OF TRANSPORT PILOT YVAN HASKINS ADJUSTED PUMP TO RUN AT REQUESTED RATE PER PHARMACY. VERIFIED RATE WITH MYSELF AND YUNI MANRIQUEZ. NOW RUNNING AT RATE DIRECTED BY PHARMACY. CONTINUING TO MONITOR.
--- NOTE | 2024-08-21 05:08 | NUR ---
SHIFT SUMMARY. SHIFT HAS BEEN UNREMARKABLE. PT AOX2, PLEASANT, ABLE TO MAKE NEEDS KNOWN. MENTATION HAS SOMEWHAT FLUCUATED OVER COURSE OF SHIFT BUT MOST RECENTLY PT MORE ALERT AND REPORTS FEELING "FINE" OTHER THAN TIRED. HEPARIN INFUSING THROUGHOUT SHIFT. DIGOXIN ADMINISTERED ON SCHEDULE WITHOUT DIFFICULTY. VITALS HAVE REMAINED STABLE. ABLE TO REPOSITION SELF INDEPENDENTLY. PT INCONTINENT OF URINE, PUREWICK PUT IN PLACE EARLY THIS MORNING BUT PT PULLED WHILE SLEEPING. CONTINUES TO RUN AFIB WITH RATE CONTROLLED IN 70s-80s RANGE AT THIS TIME. BED LOCKED IN LOWEST POSITION. CALL LIGHT LEFT WITHIN REACH. CONTINUING TO MONITOR.
--- NOTE | 2024-08-21 06:30 | NUR ---
PT CONVERTED TO SINUS FROM AFIB EARLY THIS MORNING. CONTINUING TO MONITOR.
[2024-08-21] MEDS ORDERED: Acetamin/Butalbital/Caffeine Tab PO PRN ×2 (08:30→15:25)
[2024-08-21 08:58] LABS: Digoxin (Lanoxin) 0.92 ug/mL (0.80-2.00)
[2024-08-21] MEDS ORDERED: Lisinopril 20 MG Tab PO SCH (09:00)
[2024-08-21] MEDS ORDERED: Potassium Chloride 20 MEQ TabCR PO ONE (09:00)
[2024-08-21 14:26] LABS: PRO B NATRIURETIC PEPTIDE NT 2046 pg/mL (0-124)
[2024-08-21] MEDS ORDERED: Nicotine 21 MG PATCH TOP ONE (15:20)
[2024-08-21] MEDS ORDERED: Acetamin/Butalbital/Caffeine Tab PO ONE (15:25)
--- NOTE | 2024-08-21 15:26 | NUR ---
UPON THIS PC RN ENTERING THE ROOM, PT LAYING ON LEFT SIDE, GRIMACING, ARMS PULLED TO CORE WITH LEGS DRAWN UP. CARMEN STATES HIS "HEAD IS POUNDING". HE REPORTS CHRONIC MIGRAINES AT BASELINE. "THREE OR FOUR TIMES A WEEK". CURRENT ORDERED DOSE OF FIORICET IS NOT MANAGING PT'S MIGRAINE SX. PT JOKINGLY ASKED THIS RN FOR A CIGARETTE. HE SMOKES A PACK A DAY OR BETTER. RCV'D ORDER FROM DR. QUINONES TO INCREASE FIORICET TO EVERY 4 HRS NEEDED WELL A NICOTINE PATCH. THIS PC RN CONFIRMED ABOVE STATED MEDICATION DOSES WERE APPROPRIATE WITH RAFAEL BARNES. PRIMARY RN NOT AVAILABLE FOR UPDATE. PROVIDED UPDATE TO COVERING RN, JORGE ALBERTO. PC WILL CONTINUE TO REMAIN AVAILABLE.
--- NOTE | 2024-08-21 18:32 | NUR ---
Summary. Pt rested in bed this shift. Sleepy but easily arousable and oriented once awake. PRN migraine medication started for severe headache lasting entirety of shift, see emar. PG dressings and caps changed this afternoon. Pt febrile, TMax 102.1. BP increases with pain, decreases as comfort level increases. See chart for further details.
[2024-08-21] MEDS ORDERED: Melatonin 3 MG Tab PO PRN (21:55)
[2024-08-21] MEDS ORDERED: Topiramate 25 MG Tab PO PRN (21:55)
[2024-08-21] MEDS ORDERED: Polyethylene Glycol 3350 17 gm PO PRN (21:55)
[2024-08-22] VITALS (10 sets, daily range): BP systolic 139–185; BP diastolic 70–91
[2024-08-22 03:35] LABS: BASOPHILS ABSOLUTE AUTO 0.05 K/mm3 (0.00-0.23); BASOPHILS PERCENT AUTO 0 % (0-2); EOSINOPHILS ABSOLUTE AUTO 0.13 K/mm3 (0.00-0.68); EOSINOPHILS PERCENT AUTO 1 % (0-6); Hematocrit 25.8 % (37.0-53.0); Hemoglobin 8.8 g/dL (13.5-17.5); IMMATURE GRAN PERCENT AUTO 1 % (0-1); LYMPHOCYTES ABSOLUTE AUTO 1.07 K/mm3 (0.84-5.20); LYMPHOCYTES PERCENT AUTO 6 % (21-46); MONOCYTES ABSOLUTE AUTO 2.33 K/mm3 (0.16-1.47); MONOCYTES PERCENT AUTO 13 % (4-13); Mean Corpuscular HGB 28.9 pg (26.0-34.0); Mean Corpuscular HGB Conc 34.1 g/dL (31.5-36.5); Mean Corpuscular Volume 85 fL (80-100); Mean Platelet Volume 8.5 fL (9.1-12.4); NEUTROPHILS ABSOLUTE AUTO 13.96 K/mm3 (1.96-9.15); NEUTROPHILS PERCENT AUTO 79 % (41-73); Platelet Count 569 K/mm3 (150-400); RDW Coefficient Variation 13.8 % (11.7-14.2); RDW Standard Deviation 42.6 fL (35.1-46.3); Red Blood Cell Count 3.05 M/mm3 (4.30-5.90); White Blood Cell Count 17.64 K/mm3 (4.00-11.30)
[2024-08-22 03:49] LABS: International Normalized Ratio 1.17; Prothrombin Time Results 12.4 Sec (9.7-11.5)
[2024-08-22 03:57] LABS: Albumin, Blood 1.9 g/dL (3.4-5.0); Albumin/Globulin Ratio 0.4 (0.8-1.8); Bilirubin, Total 0.4 mg/dL (0.1-1.0); Calcium, Blood 8.8 mg/dL (8.5-10.1); Creatinine, Blood 0.43 mg/dL (0.60-1.20); Globulin, Blood 4.3 g/dL (2.2-4.0); Potassium, Blood 3.6 mmol/L (3.5-5.5); Total Protein, Blood 6.2 g/dL (6.4-8.2)
--- NOTE | 2024-08-22 04:52 | NUR ---
SHIFT SUMMARY. SHIFT HAS BEEN UNREMARKABLE. PT AOX4 WHEN ALERT, CALLS APPROPRIATELY, ABLE TO MAKE NEEDS KNOWN, PLEASANT. HAS BEEN ABLE TO REST COMFORTABLY THROUGHOUT SHIFT. ABLE TO REPOSITION SELF INDEPENDENTLY. CONTINENT/INCONTINENT. AT TIMES ABLE TO USE URINAL BUT THROUGHOUT NIGHT HAS BEEN PRIMARILY INCONTINENT OF BLADDER. OUTPUT CHARTED APPROPRIATELY. VITALS HAVE REMAINED STABLE. ABX ADMINISTERED ON SCHEDULE WITHOUT DIFFICULTY. HAS BEEN ON BEDREST THROUGHOUT SHIFT. SPOKE WITH DR. COLINDRES EARLY IN SHIFT PT WAS REPORTING THAT FIORCET WAS INSUFFICIENT FOR MIGRAINE MANAGEMENT. MED REC SHOWED THAT PT TAKES TOPAMAX AT HOME PRN DAILY FOR MIGRAINE MANAGEMENT. WHEN TOPAMAX WAS APPROVED, PT WAS REPORTING THAT MIGRAINE WAS ALLEVIATED FROM PREVIOUS FIORCET DOSE. BED LOCKED IN LOWEST POSITION. CALL LIGHT LEFT WITHIN REACH. BED ALARM ACTIVE. CONTINUING TO MONITOR.
[2024-08-22] MEDS ORDERED: Digoxin 0.125 MG Tab PO SCH (09:00)
[2024-08-22] MEDS ORDERED: Nicotine 21 MG PATCH TOP SCH (09:00)
--- NOTE | 2024-08-22 09:48 | NUR ---
C/O MIGRAINE THIS MORNING. PT REPORTS NO IMPOVEMENT OF MIGRAINE SINCE YESTERDAY. ONLY NON-VERBAL INDICATOR OF DISCOMFORT NOTED IS SQUEEZING HIS EYES CLOSED. TODAY HE IS SITTING UPRIGHT IN BED AND LIGHTS ARE ON WHILE PRIMARY RN PROVIDES CARES. PRIMARY RN TO ADMINISTER TOPIRMATE NOW. AFTER HIS BIOPSY, PRIMARY RN TO REASSESS HIS HEADACHE AND ADMINISTER FIORICET IF APPROPRIATE. PC TO REMAIN AVAILABLE.
--- NOTE | 2024-08-22 12:31 | NUR ---
UNWITNESSED FALL AT 1218 THE GLOBAL CLINICAL LEADERGrazyna DOHERTY REPORTED TO THIS CDL DEDICATED TRUCK DRIVER THE BREAK NURSE, THAT THE PT WAS IN BED AND STATED HE FELL AND HIT HIS HEAD ON THE IV POLE. BY 1219 I WAS IN THE ROOM AND THE PT WAS IN THE BED. I SAW THAT HE WAS DISCONNECTED FROM THE TELE BOX. WHILE GETTING INTIAL VITAL SIGNS I CALLED TELE AND THEY SAID THE PT CAME OFF OF TELE AT 1217. THE GLOBAL CLINICAL LEADER REPORTED THE PT WAS WORKING WITH PHYSICAL THERAPY AND WAS LEFT UP IN THE CHAIR. THE GLOBAL CLINICAL LEADER STATED SHE WAS AWARE THE PT WAS IN THE CHAIR. THE PT STATED THAT HE WAS IN THE CHAIR AND WAS TRYING TO GET BACK TO BED AND HE FELL ON THE GROUND AND HIT HIS HEAD ON THE IV POLE. HE THEN GOT HIMSELF INTO BED. HIS VITAL SIGNS WERE TAKEN, NEURO/SKIN ASSESSMENT COMPLETED. NEAR EAST ARCHEOLOGY PROFESSOR AWARE. BED ALARM PLACE AND CALL LIGHT IN REACH. AND DR. REDMAN CALLED ABOUT THE FALL. NO FURTHER ORDERS FROM HER AT THIS TIME.
--- NOTE | 2024-08-22 12:39 | NUR ---
PRIMARY RN AMAN Patel. BACK FORM BREAK AND NOTIFIED OF INCIDENT W/ UNWHITNESSED FALL. .
--- NOTE | 2024-08-22 13:00 | NUR ---
PHARMACY WAS CONSULTED ABOUT PTS MEDS AFTER FALL. PHARMACY REPORTS THAT THERE ARE NO RECOMMENDATIONS OR CHANGES THAT NEED TO BE MADE.
--- NOTE | 2024-08-22 13:42 | NUR ---
ATTEMPTED TO CALL THE PT'S SON WITH THE NUMBER ON FILE AND THE PHONE NUMBER WAS DISCONNECTED.
[2024-08-22] MEDS ORDERED: Calcium Carbonate 500 MG Tab Chew PO PRN (16:10)
--- NOTE | 2024-08-22 18:34 | NUR ---
SHIFT SUMMARY: NEURO: PT ALERT AND ORIENTED BUT SOMETIMES ANSWERS INAPPROPRIATELY. PT TRYNG TO GET OUT OF BED WITHOUT CALLING. PT COMPLAINED OF A HEADACHE ALL MORNING THAT WAS RELIEVED WITH MEDICATION. DENIES ANY REOCCURANCE OF HEADACHE. CARDIAC: PT REMAINS IN SINUS RHYTHM WITH OCCASIONAL PVCS THROUGHOUT SHIFT. HAS NOT COMPLAINED OF ANY CP OR SOB THROUGHOUT SHIFT. RESP: DIM LUNG SOUNDS AUSCULTATED ON R SIDE ALTHOUGH CLEAR, CLEAR THROUGH L VARGAS. GI/: PT HAS BEEN INCONTINENT OF BOTH STOOL AND URINE THROUGHOUT SHIFT. LINES: POWERGLIDES TO BILAT UPPER ARMS. BOTH PATENT. PT MOVED TO ROOM PCU 11 FROM PCU 5 AROUND 1620 FOR CLOSER OBSERVATION DUE TO PT TRYING TO GET OUT OF BED WITHOUT CALLING. SEE "UNWITNESSED FALL" NOTE FOR FURTHER INFORMATION. PT WENT FOR A CT GUIDED NEEDLE BIOPSY THIS AM. THEY WERE UNABLE TO PERFORM PROCEDURE BECUASE PT WAS NOT ABLE TO TOLERATE HOLDING STILL. PLAN FOR A BRONCH TOMORROW FOR A BIOPSY OF LUNG MASS. PT IS NPO AFTER MIDNIGHT.
[2024-08-23] VITALS (15 sets, daily range): BP systolic 126–180; BP diastolic 57–98
[2024-08-23 04:11] LABS: BASOPHILS ABSOLUTE AUTO 0.07 K/mm3 (0.00-0.23); BASOPHILS PERCENT AUTO 0 % (0-2); EOSINOPHILS ABSOLUTE AUTO 0.13 K/mm3 (0.00-0.68); EOSINOPHILS PERCENT AUTO 1 % (0-6); Hematocrit 25.6 % (37.0-53.0); Hemoglobin 8.5 g/dL (13.5-17.5); IMMATURE GRAN ABSOLUTE AUTO 0.08 K/mm3 (0.00-0.10); IMMATURE GRAN PERCENT AUTO 1 % (0-1); LYMPHOCYTES ABSOLUTE AUTO 1.28 K/mm3 (0.84-5.20); LYMPHOCYTES PERCENT AUTO 7 % (21-46); MONOCYTES ABSOLUTE AUTO 2.28 K/mm3 (0.16-1.47); MONOCYTES PERCENT AUTO 13 % (4-13); Mean Corpuscular HGB 28.1 pg (26.0-34.0); Mean Corpuscular HGB Conc 33.2 g/dL (31.5-36.5); Mean Corpuscular Volume 85 fL (80-100); Mean Platelet Volume 8.3 fL (9.1-12.4); NEUTROPHILS ABSOLUTE AUTO 13.68 K/mm3 (1.96-9.15); NEUTROPHILS PERCENT AUTO 78 % (41-73); Platelet Count 529 K/mm3 (150-400); RDW Coefficient Variation 13.9 % (11.7-14.2); RDW Standard Deviation 43.3 fL (35.1-46.3); Red Blood Cell Count 3.02 M/mm3 (4.30-5.90); White Blood Cell Count 17.52 K/mm3 (4.00-11.30)
[2024-08-23 04:55] LABS: Anion Gap 12 mmol/L (3-11); Blood Urea Nitrogen 4 mg/dL (8-24); Bun/Creatinine Ratio 9.4 (12.0-20.0); CO2, Blood 22 mmol/L (21-32); Calcium, Blood 9.2 mg/dL (8.5-10.1); Chloride, Blood 100 mmol/L (98-108); Creatinine, Blood 0.43 mg/dL (0.60-1.20); Digoxin (Lanoxin) 0.67 ug/mL (0.80-2.00); Glomerular Filtration Rate 118 (60-); Glucose, Blood 102 mg/dL (70-99); Potassium, Blood 3.5 mmol/L (3.5-5.5); Sodium, Blood 130 mmol/L (136-145)
--- NOTE | 2024-08-23 06:28 | NUR ---
SHIFT SUMMARY PATIET ALERT AND ORIENTED X 2-3, HE SEEMED TO BE CONFUSED TO WHERE HE WAS AT TIMES. HE HAD NO COMPLAINTS OF PAIN OR SHORTNESS OF BREATH. ON ROOM AIR WITH SPO2 >90%. VITAL SIGNS STABLE, NO EVENTS ON TELE. NO ACUTE ISSUES NOTED OVERNIGHT. WILL CONTINUE TO MONITOR. CALL LIGHT WITHIN REACH.
[2024-08-23] MEDS ORDERED: Digoxin 0.25 MG Tab PO SCH (09:00)
[2024-08-23] MEDS ORDERED: Topiramate 25 MG Tab PO SCH ×2 (14:00→21:00)
[2024-08-23] MEDS ORDERED: EpiNEPhrine 1 MG/1 ML 1ML Vial ONE (14:12)
[2024-08-23] MEDS ORDERED: Lidocaine 2% 5 ML SDV ONE (14:13)
--- NOTE | 2024-08-23 14:23 | NUR ---
UPDATE: PT TO DAY SURG. VSS.
[2024-08-23] MEDS ORDERED: Lidocaine HCl 4% 5 ML SDA INH ONE (14:30)
[2024-08-23] MEDS ORDERED: Lactated Ringer's 1,000 ML IV SCH (14:30)
[2024-08-23] MEDS ORDERED: Lidocaine HCl 4% 5 ML SDA ONE (14:31)
[2024-08-23] MEDS ORDERED: Rocuronium Bromide 10 MG/ML 5ML Injection IV ONE ×2 (14:36→15:03)
[2024-08-23] MEDS ORDERED: propofoL 40 ML IV ONE (14:36)
[2024-08-23] MEDS ORDERED: Sugammadex Sodium 200 MG/2ML SDV (100 MG/ML) ONE (14:36)
[2024-08-23] MEDS ORDERED: FentaNYL Citrate 50 MCG/ML 2 ML Injection ONE (14:44)
--- NOTE | 2024-08-23 14:50 | NUR ---
PT BROUGHT FROM PCU TO DAY SURGERY FOR PROCEDURE. History, Chart, Medications and Allergies reviewed before start of procedure. Patient confirms NPO status and agrees with scheduled surgery. Pre-Op teaching done. Pt verbalizes understanding. PT BELONGINGS LEFT IN PERSONAL ROOM IN PCU.
[2024-08-23] MEDS ORDERED: Lidocaine 2% Jelly Uro-Jet ONE (15:04)
--- NOTE | 2024-08-23 15:20 | NUR ---
08/23/24 1520 Marga Barnes INTO OR 3 @ 1500. ECG/SPO2 BP APPLIED. PROCEDURE DONE UNDER GENERAL ANESTHESIA. PT INTUBATED WITH 8.5 ETT/25 @ LIP. PROCEDURE START @ 1505 SEE ANESTHESIA RECORD.
--- NOTE | 2024-08-23 16:50 | NUR ---
UPDATE: PT BACK FROM DAY SURG. VSS. SPO2 >94% ON 3L NC.
--- NOTE | 2024-08-23 17:14 | NUR ---
SHIFT SUMMARY: PT ALERT AND ORIENTED X2-3, EASILY FORGETFUL, POOR HISTORIAN, BED ALARM ON FOR SAFETY. PT WITH HX OF CVA W/ L. SIDE DEFICIT. BP STABLE. HR SR 70'S THROUGHOUT THE DAY. AFEBRILE. SPO2 >95% ON ROOM AIR. ABD SOFT, NON TENDER, BOWEL SOUNDS +. PULSES STRONG AND EQUAL THROUGHOUT. PT WITH BRONCHOSCOPY W/BIOPSY THIS AFTERNOON, TOLERATED WELL. REMAINS NPO UNTIL 1800, WILL ADVANCE DIET TOLERATED. PT INC OF URINE, ATTENDS IN PLACE. NO BM. PT ABLE TO REPOS IND IN BED. THIS RN TO UPDATE SON. BED IN LOW, CALL LIGHT IN REACH, WILL REPORT TO ONCOMING RN.
[2024-08-24] VITALS: BP 133/56
[2024-08-24 04:00] VITALS: BP 138/59
[2024-08-24 04:35] LABS: BASOPHILS ABSOLUTE AUTO 0.06 K/mm3 (0.00-0.23); BASOPHILS PERCENT AUTO 0 % (0-2); EOSINOPHILS ABSOLUTE AUTO 0.11 K/mm3 (0.00-0.68); EOSINOPHILS PERCENT AUTO 1 % (0-6); Hematocrit 27.7 % (37.0-53.0); Hemoglobin 9.3 g/dL (13.5-17.5); IMMATURE GRAN ABSOLUTE AUTO 0.14 K/mm3 (0.00-0.10); IMMATURE GRAN PERCENT AUTO 1 % (0-1); LYMPHOCYTES ABSOLUTE AUTO 0.88 K/mm3 (0.84-5.20); LYMPHOCYTES PERCENT AUTO 5 % (21-46); MONOCYTES ABSOLUTE AUTO 2.12 K/mm3 (0.16-1.47); MONOCYTES PERCENT AUTO 11 % (4-13); Mean Corpuscular HGB 28.4 pg (26.0-34.0); Mean Corpuscular HGB Conc 33.6 g/dL (31.5-36.5); Mean Corpuscular Volume 85 fL (80-100); Mean Platelet Volume 8.3 fL (9.1-12.4); NEUTROPHILS ABSOLUTE AUTO 15.75 K/mm3 (1.96-9.15); NEUTROPHILS PERCENT AUTO 83 % (41-73); Platelet Count 619 K/mm3 (150-400); RDW Standard Deviation 42.7 fL (35.1-46.3); Red Blood Cell Count 3.27 M/mm3 (4.30-5.90); White Blood Cell Count 19.06 K/mm3 (4.00-11.30)
[2024-08-24 05:06] LABS: Anion Gap 12 mmol/L (3-11); Blood Urea Nitrogen 5 mg/dL (8-24); Bun/Creatinine Ratio 11.7 (12.0-20.0); CO2, Blood 23 mmol/L (21-32); Calcium, Blood 9.4 mg/dL (8.5-10.1); Chloride, Blood 103 mmol/L (98-108); Creatinine, Blood 0.43 mg/dL (0.60-1.20); Digoxin (Lanoxin) 0.58 ug/mL (0.80-2.00); Glomerular Filtration Rate 118 (60-); Glucose, Blood 99 mg/dL (70-99); Potassium, Blood 3.5 mmol/L (3.5-5.5); Sodium, Blood 134 mmol/L (136-145)
--- NOTE | 2024-08-24 06:40 | NUR ---
SHIFT SUMMARY PATIENT ALERT AND ORIENTED X3. CONFUSED TO DATE AND FORGETFUL. PATIENT MEDICATED PER EMAR FOR HEADACHE. HE DENIES ANY SHORTNESS OF BREATH, ON ROOM AIR WITH SPO2 >90%. PATIENT IS HYPERTENSIVE AT TIMES BUT HAS NOT REQUIRED ANY NEEDED ANTIHYPERTENSIVE MEDICATION. WILL CONTINUE TO MONITOR. CALL LIGHT WITHIN REACH.
[2024-08-24 08:07] VITALS: BP 149/74
[2024-08-24] MEDS ORDERED: Digoxin 0.125 MG Tab PO SCH (09:00)
[2024-08-24 14:36] VITALS: BP 166/75
--- NOTE | 2024-08-24 14:38 | NUR ---
TRANSFER PT ARRIVED 1410 FROM PCU, POWERGLIDE IN EACH ARM, COOPERATIVE WITH PROCEDURES. COMPLAINT OF HEADACHE UPON ARRIVAL, MEDICATED WITH FIORICET AND TYLENOL PER EMAR. SKIN CHECKED, POWERFLIDE FLUSHED AND DRAWS BLOOD, PT CHART IN LOCK BOX. CALL LIGHT IN REACH, BED IN LOW POSITIOIN, CONTINUOUS BIOX IN PLACE 94%, HR 72.
[2024-08-24 19:38] VITALS: BP 134/77
[2024-08-25 03:12] VITALS: BP 134/57
--- NOTE | 2024-08-25 04:31 | NUR ---
SHIFT SUMMARY PT A&Ox2-3 BUT FORGETFUL. COOPERATIVE OF CARE. DENIED CP OR FEELING SOB BUT DID C/O HEADACHE. MEDICATED PER EMAR WITH GOOD EFFECT. NO EVENTS ON TELE. CONTINUING IV ABX PER ORDERS. VSS. PT ABLE TO SLEEP T/O NIGHT. BED ALARM ON. BED IN LOWEST POSITION AND CALL LIGHT IN REACH.
[2024-08-25 06:41] LABS: BASOPHILS ABSOLUTE AUTO 0.08 K/mm3 (0.00-0.23); BASOPHILS PERCENT AUTO 0 % (0-2); EOSINOPHILS ABSOLUTE AUTO 0.15 K/mm3 (0.00-0.68); EOSINOPHILS PERCENT AUTO 1 % (0-6); Hematocrit 27.2 % (37.0-53.0); Hemoglobin 9.1 g/dL (13.5-17.5); IMMATURE GRAN PERCENT AUTO 1 % (0-1); LYMPHOCYTES ABSOLUTE AUTO 1.18 K/mm3 (0.84-5.20); LYMPHOCYTES PERCENT AUTO 7 % (21-46); MONOCYTES ABSOLUTE AUTO 2.07 K/mm3 (0.16-1.47); MONOCYTES PERCENT AUTO 12 % (4-13); Mean Corpuscular HGB 28.4 pg (26.0-34.0); Mean Corpuscular HGB Conc 33.5 g/dL (31.5-36.5); Mean Corpuscular Volume 85 fL (80-100); Mean Platelet Volume 8.7 fL (9.1-12.4); NEUTROPHILS ABSOLUTE AUTO 14.38 K/mm3 (1.96-9.15); NEUTROPHILS PERCENT AUTO 80 % (41-73); Platelet Count 630 K/mm3 (150-400); RDW Coefficient Variation 13.9 % (11.7-14.2); White Blood Cell Count 17.96 K/mm3 (4.00-11.30)
[2024-08-25] MEDS ORDERED: Enoxaparin 40 MG/0.4 ML SYR SC SCH (07:00)
[2024-08-25 07:15] LABS: Albumin, Blood 1.8 g/dL (3.4-5.0); Albumin/Globulin Ratio 0.4 (0.8-1.8); Bilirubin, Total 0.3 mg/dL (0.1-1.0); Bun/Creatinine Ratio 15.7 (12.0-20.0); Calcium, Blood 9.1 mg/dL (8.5-10.1); Creatinine, Blood 0.45 mg/dL (0.60-1.20); Globulin, Blood 4.3 g/dL (2.2-4.0); Potassium, Blood 3.4 mmol/L (3.5-5.5); Total Protein, Blood 6.1 g/dL (6.4-8.2)
[2024-08-25 07:19] VITALS: BP 122/58
[2024-08-25] MEDS ORDERED: Potassium Chl 10MEQ/Water100ML 100 ML IV ONE (08:35)
[2024-08-25] MEDS ORDERED: Acetamin/Butalbital/Caffeine Tab PO PRN (10:30)
[2024-08-25 11:07] LABS: SARS-Cov-2 (COVID-19) PCR, MMC NEGATIVE (NEGATIVE)
[2024-08-25] MEDS ORDERED: ZEBUTAL 50-3251 EAC1 PO (13:12)
[2024-08-25] MEDS ORDERED: DIGOX125 MC1 PO (13:13)
[2024-08-25] MEDS ORDERED: DIGOX250 MCG PO (13:14)
[2024-08-25] MEDS ORDERED: PIPERACIL-TA3.375 G2 IV (13:15)
[2024-08-25] MEDS ORDERED: METO25 PO (13:15)
--- NOTE | 2024-08-25 14:20 | NUR ---
REPORT CALLED TO ASPEN @1415. PT LEAVING WITH JUDSON CRANE FOR X7 DAYS IV ABX. HARD SCRIPTS FOR TRAMADOL AND FIORECET IN DISCHARGE PACKET. TELE SENT BACK.
== END 2024-08-25 15:43 | DRG 871 ==
LOC: ER 13:03 → PCU 20:29 → MEDS 20:29 → PCU 22:35 → MEDS 08-19 17:30 → PCU 08-20 20:52 → MEDS 08-24 14:06
PROVIDERS: Anesthesiology; Hospitalist; Internal Medicine; Internal Medicine Critical Care Medicine; Nurse Practitioner Acute Care; Registered Nurse; Student in an Organized Health Care Education/Training Program; ADMIT Internal Medicine
PROC: 3E03329 Introduction of Other Anti-infective into Peripheral Vein, Percutaneous Approach (ICD-10-PCS; 2024-08-17)
PROC: 0B918ZZ Drainage of Trachea, Via Natural or Artificial Opening Endoscopic (ICD-10-PCS; 2024-08-20)
PROC: 0BB78ZX Excision of Left Main Bronchus, Via Natural or Artificial Opening Endoscopic, Diagnostic (ICD-10-PCS; principal; 2024-08-20 10:00)
PROC: 0BB38ZX Excision of Right Main Bronchus, Via Natural or Artificial Opening Endoscopic, Diagnostic (ICD-10-PCS; 2024-08-20 10:00)
PROC: 0BB38ZX Excision of Right Main Bronchus, Via Natural or Artificial Opening Endoscopic, Diagnostic (ICD-10-PCS; 2024-08-23)
PROC: 0B938ZX Drainage of Right Main Bronchus, Via Natural or Artificial Opening Endoscopic, Diagnostic (ICD-10-PCS; 2024-08-23)
DX: A41.9 Sepsis, unspecified organism (principal); J18.9 Pneumonia, unspecified organism; I69.954 Hemiplegia and hemiparesis following unspecified cerebrovascular disease affecting left non-dominant side; J44.0 Chronic obstructive pulmonary disease with (acute) lower respiratory infection; R64 Cachexia; E87.1 Hypo-osmolality and hyponatremia; C34.31 Malignant neoplasm of lower lobe, right bronchus or lung; F10.20 Alcohol dependence, uncomplicated; Z66 Do not resuscitate; I10 Essential (primary) hypertension; I48.0 Paroxysmal atrial fibrillation; J43.9 Emphysema, unspecified; R73.9 Hyperglycemia, unspecified; F17.210 Nicotine dependence, cigarettes, uncomplicated; G43.909 Migraine, unspecified, not intractable, without status migrainosus; B00.9 Herpesviral infection, unspecified; D64.9 Anemia, unspecified; E87.6 Hypokalemia; R29.6 Repeated falls; F32.A Depression, unspecified; Z90.89 Acquired absence of other organs; Z98.1 Arthrodesis status; Z98.890 Other specified postprocedural states; Z88.8 Allergy status to other drugs, medicaments and biological substances; Z68.21 Body mass index [BMI] 21.0-21.9, adult
CPT/HCPCS: 36415; 71045; 71260; 74177; 80048; 80053; 80162; 82947; 83605; 83735; 83880; 84439; 84443; 84484; 85014; 85018; 85025; 85520; 85610; 85730; 87040; 87070; 87205; 88108; 88305; 88341; 88342; 93005; 93010; 93306; 94640; 94664; 94760; 94762; 96361; 96374-59; 96375; 96376; 97110; 97162; 97530; 99285-25; A9270; C1751; J0171; J0360; J0696; J1160; J1644; J1650; J2001; J2060; J2250; J2543; J2704; J3010; J3370; J3480; J7040; J7050; J7120; Q9967; U0002